=== PATIENT | male | born 1940 | race Caucasian/White ===

== ENCOUNTER → 2016-04-21 | Outpatient (CLI) | payer MEDICARE, BC ==
--- NOTE | 2016-04-22 08:18 | US ---
EXAMINATION TYPE: US abdomen complete DATE OF EXAM: 04/21/2016 6:53 PM COMPARISON: CT in PACS CLINICAL HISTORY: Abdominal pain. Known AAA. Very difficult study due to large amount of overlying casandra wel gas EXAM MEASUREMENTS: Liver Length: 17.9 cm Gallbladder Wall: 0.2 cm CBD: 0.5 cm Spleen: 9.0 cm Right Kidney: 10.9 x 4.8 x 4.5 cm Left Kidney: 10.9 x 5.2 x 5.3 cm TECHNOLOGIST IMPRESSION: Pancreas: Obscured by bowel gas, visualized portions show no mass Liver: Measuring upper limits, no masses visualized Gallbladder: wnl Evidence for sonographic Yun's sign: No CBD: wnl Spleen: wnl Right Kidney: No hydronephrosis or masses seen Left Kidney: No hydronephrosis or masses seen Upper IVC: wnl Abd Aorta: Limited visualization due to large amount of overlying bowel gas. The patient was very ne rvous about me putting any large amount of pressure on his abdomen, which also limited the exam. The prox/mid aorta measures 3.9 cm and the mid aorta measures 5.7 cm. Distal aorta could not be visualize d on this exam IMPRESSION: 1. Infrarenal abdominal aortic aneurysm with maximal transverse diameter of 5.7 cm. 2. Mild hepatomegaly.
== END | disposition home or self-care (01) ==
LOC: RADUSMAIN 17:41
PROVIDERS: ATTEND Family Medicine
DX: I71.4 Abdominal aortic aneurysm, without rupture (principal); R16.0 Hepatomegaly, not elsewhere classified
CPT/HCPCS: 76700

== ENCOUNTER 2017-06-22 12:22 | Inpatient (IN) | payer MEDICARE, BC ==
[2017-06-22] MEDS ORDERED: SODIUM CHLORIDE 0.9% 1,000 ML IV STA (12:45)
[2017-06-22] MEDS ORDERED: ALBUTEROL NEBULIZED 2.5 MG/3 ML INHALATION STA (12:45)
[2017-06-22] MEDS ORDERED: IPRATROPIUM 0.5 MG/2.5 ML NEBU INHALATION STA (12:45)
[2017-06-22] MEDS ORDERED: cefTRIAXone IN SWFI 2,000 MG/20 ML SYRINGE IVP STA (12:45)
[2017-06-22] MEDS ORDERED: methylPREDNISolone SOD SUCCI 125 MG/2 ML VIAL IV STA (12:45)
[2017-06-22 13:25] LABS: ALT 23 U/L (21-72); AST 21 U/L (17-59); Albumin 3.8 g/dL (3.5-5.0); Alkaline Phosphatase 110 U/L (38-126); Anion Gap 12 mmol/L; Blood Urea Nitrogen 14 mg/dL (9-20); Calcium 8.9 mg/dL (8.4-10.2); Carbon Dioxide 26 mmol/L (22-30); Chloride 104 mmol/L (98-107); Glucose 195 mg/dL (74-99); Sodium 142 mmol/L (137-145); Total Bilirubin 0.6 mg/dL (0.2-1.3); Total Protein 6.8 g/dL (6.3-8.2)
[2017-06-22 13:30] LABS: D-Dimer 0.77 mg/L FEU (<0.60); HCT 32.1 % (39.0-53.0); HGB 10.7 gm/dL (13.0-17.5); INR 1.1 (<1.2); MCH 35.4 pg (25.0-35.0); MCHC 33.4 g/dL (31.0-37.0); Macrocytosis Moderate; Partial Thromboplastin Time 24.9 sec (22.0-30.0); Platelet Count 403 k/uL (150-450); Prothrombin Time 10.6 sec (9.0-12.0); RBC 3.03 m/uL (4.30-5.90); RDW 13.6 % (11.5-15.5); WBC 8.7 k/uL (3.8-10.6)
[2017-06-22 13:43] LABS: Eosinophils # (M) 0.44 k/uL (0-0.7); Lymphocytes # (M) 1.22 k/uL (1.0-4.8); Monocytes # (M) 0.61 k/uL (0-1.0); Neutrophils # (M) 6.44 k/uL (1.3-7.7); Neutrophils % (M) 74 %; Nucleated Red Blood Cells 0 /100 WBC (0-0); Total Cells Counted 100
[2017-06-22 13:50] LABS: Creatine Kinase MB 1.7 ng/mL (0.0-2.4)
[2017-06-22 13:51] LABS: Troponin I 0.04 ng/mL (0.000-0.034)
--- NOTE | 2017-06-22 14:28 | XR ---
EXAMINATION TYPE: XR chest 2V DATE OF EXAM: 06/22/2017 COMPARISON: 10/04/2011 HISTORY: Shortness of breath TECHNIQUE: Frontal and lateral views of the chest are obtained. FINDINGS: New right lower lung opacity may represent early developing pneumonia or confluence of eng orged pulmonary vasculature. Short-term follow-up is recommended. Pulmonary per inflation and slight flattening of the diaphragms on the lateral images with biapical lucencies suggestive of underlying C OPD. Incidental note of an azygos lobe and fissure is made. Postoperative changes with dehiscence of the most superior sternal wires, unchanged from the prior, is noted. Cardiac silhouette is within nor mal limits but upper limits of normal. No cephalization of pulmonary vascular congestion. Minimal oss eous demineralization is noted. IMPRESSION: New right lower lobe vague opacity that may represent confluence of engorged pulmonary vasculature or early developing pneumonia. Short-term follow-up is recommended.
[2017-06-22 15:10] LABS: Appearance,Urine Clear (Clear); Bilirubin,Urine Negative (Negative); Blood,Urine Negative (Negative); Color,Urine Yellow; Glucose,Urine (UA) 2+ (Negative); Ketones,Urine 1+ (Negative); Leukocyte Esterase,Urine Negative (Negative); Nitrite,Urine Negative (Negative); PH, Urine 5.5 (5.0-8.0); Protein,Urine Trace (Negative); Specific Gravity,Urine 1.015 (1.001-1.035)
[2017-06-22] MEDS ORDERED: GABAPENTIN 300 MG CAP PO STA (16:05)
[2017-06-22] MEDS ORDERED: oxyCODONE-APAP 7.5-325MG 1 EACH TAB PO STA (16:05)
[2017-06-22] MEDS ORDERED: ALPRAZolam 0.5 MG TAB PO STA (16:06)
[2017-06-22] MEDS ORDERED: RX INFO: IV CONTRAST WAS GIVEN 1 EACH MISC MISCELLANE PRN (16:36)
--- NOTE | 2017-06-22 16:39 | ED ---
SOB HPI - General Chief Complaint: Shortness of Breath Stated Complaint: Bronchitis/Low O2 sent by PCP Time Seen by Provider: 06/22/17 12:36 Source: patient, family Mode of arrival: wheelchair Limitations: no limitations - History of Present Illness Initial Comments: 27 years old gentleman long-standing history of smoking, still smokes presents with a shortness of breath for the last 3 weeks, also complaining about some fever and chills and shakes, he was seen at [facility] according to the patient wanted to admit him but he disagreed with today is complaining about shortness of breath it hurts when he takes a deep breath, he has a history of coronary artery disease he status post CABG denies any abdominal pain no frequency urgency dysuria and eyes any symptoms of TIA or CVA - Related Data Home Medications Medication Instructions Recorded Confirmed ALPRAZolam [Xanax] 1 tab PO Q8H 05/12/15 06/22/17 Atenolol [Tenormin] 25 mg PO BID 05/12/15 06/22/17 Cilostazol [Pletal] 50 mg PO BID 05/12/15 06/22/17 Citalopram Hydrobromide [CeleXA] 20 mg PO BID 05/12/15 06/22/17 Clopidogrel Bisulfate [Plavix] 75 mg PO DAILY 05/12/15 06/22/17 Furosemide [Lasix] 20 mg PO BID 05/12/15 06/22/17 Gabapentin [Neurontin] 600 mg PO TID 05/12/15 06/22/17 Lisinopril [Zestril] 10 mg PO DAILY 05/12/15 06/22/17 Zolpidem [Ambien] 5 mg PO HS 05/12/15 06/22/17 amLODIPine BESYLATE [Norvasc] 5 mg PO BID 05/12/15 06/22/17 Aspirin EC [Ecotrin Low Dose] 81 mg PO DAILY 06/22/17 06/22/17 Doxycycline Hyclate [Vibramycin] 100 mg PO BID 06/22/17 06/22/17 Insulin Glargine,Hum.rec.anlog 15 unit SQ 06/22/17 06/22/17 [Basaglmak Martinezpen U-100] Insulin Glargine,Hum.rec.anlog See Protocol SQ 06/22/17 06/22/17 [Basaglar Kwikpen U-100] Insulin Lispro [humaLOG Kwikpen] See Protocol SQ 5XD 06/22/17 06/22/17 Levothyroxine Sodium [Synthroid] 50 mcg PO Q72H 06/22/17 06/22/17 oxyCODONE-APAP 7.5-325MG [Percocet 1 tab PO TID 06/22/17 06/22/17 7.5-325 mg] Allergies Allergy/AdvReac Type Severity Reaction Status Date / Time No Known Allergies Allergy Verified 06/22/17 12:51 Review of Systems ROS Statement: Those systems with pertinent positive or pertinent negative responses have been documented in the HPI. ROS Other: All systems not noted in ROS Statement are negative. Past Medical History Past Medical History: Diabetes Mellitus, Hypertension, Myocardial Infarction ([place] ) Additional Past Medical History / Comment(s): spinal stenosis, arthritis History of Any Multi-Drug Resistant Organisms: None Reported Past Surgical History: Coronary Bypass/CABG, Heart Catheterization With Stent, Orthopedic Surgery Past Psychological History: Depression Smoking Status: Current every day smoker Past Alcohol Use History: None Reported Past Drug Use History: None Reported General Exam - General Exam Comments Initial Comments: General: The patient is awake and alert, in moderate distress Skin: Skin is warm and dry and no rashes or lesions are noted. Eye: Pupils are equal, round and reactive to light, extra-ocular movements are intact; there is normal conjunctiva bilaterally. Ears, nose, mouth and throat: There are moist mucous membranes and no oral lesions. Neck: The neck is supple, signs of meningitis Cardiovascular: There is a regular rate and rhythm. No murmur, rub or gallop is appreciated. Respiratory: To auscultation bilateral, exam consistent with a severe COPD Gastrointestinal: Soft, non-distended, non-tender abdomen without masses or organomegaly noted. There is no rebound or guarding present. Bowel sounds are unremarkable. Back: There is no tenderness to palpation in the midline. There is no obvious deformity. Musculoskeletal: Normal ROM, no tenderness, There is no pedal edema. There is no calf tenderness or swelling. No cords were appreciated. Neurological: CN II-XII intact, Cranial nerves III through XII are intact. There are no obvious motor or sensory deficits. Coordination appears grossly intact. Speech is normal. Psychiatric: Cooperative, appropriate mood & affect, normal judgment. Limitations: no limitations Course Vital Signs 06/22/17 06/22/17 06/22/17 12:29 12:53 13:03 Temperature 98.3 F Pulse Rate 81 78 78 Respiratory 26 H 20 Rate Blood Pressure 163/71 161/71 O2 Sat by Pulse 88 L 99 Oximetry 06/22/17 06/22/17 06/22/17 13:44 14:47 15:54 Temperature 98.6 F Pulse Rate 96 85 82 Respiratory 20 20 Rate Blood Pressure 132/62 142/63 O2 Sat by Pulse 96 96 Oximetry 06/22/17 17:54 Temperature Pulse Rate 76 Respiratory 20 Rate Blood Pressure 133/63 O2 Sat by Pulse 96 Oximetry Medical Decision Making - Lab Data Result diagrams: 06/22/17 12:58 06/22/17 12:58 Lab Results 06/22/17 06/22/17 06/22/17 Range/Units 12:58 12:58 12:58 WBC 8.7 (3.8-10.6) k/uL RBC 3.03 L (4.30-5.90) m/uL Hgb 10.7 L (13.0-17.5) gm/dL Hct 32.1 L (39.0-53.0) % MCV 106.0 H (80.0-100.0) fL MCH 35.4 H (25.0-35.0) pg MCHC 33.4 (31.0-37.0) g/dL RDW 13.6 (11.5-15.5) % Plt Count 403 (150-450) k/uL Neutrophils % (Manual) 74 % Lymphocytes % (Manual) 14 % Monocytes % (Manual) 7 % Eosinophils % (Manual) 5 % Neutrophils # (Manual) 6.44 (1.3-7.7) k/uL Lymphocytes # (Manual) 1.22 (1.0-4.8) k/uL Monocytes # (Manual) 0.61 (0-1.0) k/uL Eosinophils # (Manual) 0.44 (0-0.7) k/uL Nucleated RBCs 0 (0-0) /100 WBC Manual Slide Review Performed Macrocytosis Moderate PT (9.0-12.0) sec INR (<1.2) APTT (22.0-30.0) sec D-Dimer (<0.60) mg/L FEU Sodium 142 (137-145) mmol/L Potassium 4.0 (3.5-5.1) mmol/L Chloride 104 (98-107) mmol/L Carbon Dioxide 26 (22-30) mmol/L Anion Gap 12 mmol/L BUN 14 (9-20) mg/dL Creatinine 0.70 (0.66-1.25) mg/dL Est GFR (CKD-EPI)AfAm >90 (>60 ml/min/1.73 sqM) Est GFR (CKD-EPI)NonAf >90 (>60 ml/min/1.73 sqM) Glucose 195 H (74-99) mg/dL POC Glucose (mg/dL) (75-99) mg/dL POC Glu Court Commissioner ID Plasma Lactic Acid Chauncey (0.7-2.0) mmol/L Calcium 8.9 (8.4-10.2) mg/dL Total Bilirubin 0.6 (0.2-1.3) mg/dL AST 21 (17-59) U/L ALT 23 (21-72) U/L Alkaline Phosphatase 110 (38-126) U/L Total Creatine Kinase 139 (55-170) U/L CK-MB (CK-2) 1.7 (0.0-2.4) ng/mL CK-MB (CK-2) Rel Index 1.2 Troponin I 0.040 H* (0.000-0.034) ng/mL Total Protein 6.8 (6.3-8.2) g/dL Albumin 3.8 (3.5-5.0) g/dL Urine Color Urine Appearance (Clear) Urine pH (5.0-8.0) Ur Specific [place] (1.001-1.035) Urine Protein (Negative) Urine Glucose (UA) (Negative) Urine Ketones (Negative) Urine Blood (Negative) Urine Nitrite (Negative) Urine Bilirubin (Negative) Urine Urobilinogen (<2.0) mg/dL Ur Leukocyte Esterase (Negative) 06/22/17 06/22/17 06/22/17 Range/Units 12:58 12:58 14:59 WBC (3.8-10.6) k/uL RBC (4.30-5.90) m/uL Hgb (13.0-17.5) gm/dL Hct (39.0-53.0) % MCV (80.0-100.0) fL MCH (25.0-35.0) pg MCHC (31.0-37.0) g/dL RDW (11.5-15.5) % Plt Count (150-450) k/uL Neutrophils % (Manual) % Lymphocytes % (Manual) % Monocytes % (Manual) % Eosinophils % (Manual) % Neutrophils # (Manual) (1.3-7.7) k/uL Lymphocytes # (Manual) (1.0-4.8) k/uL Monocytes # (Manual) (0-1.0) k/uL Eosinophils # (Manual) (0-0.7) k/uL Nucleated RBCs (0-0) /100 WBC Manual Slide Review Macrocytosis PT 10.6 (9.0-12.0) sec INR 1.1 (<1.2) APTT 24.9 (22.0-30.0) sec D-Dimer 0.77 H (<0.60) mg/L FEU Sodium (137-145) mmol/L Potassium (3.5-5.1) mmol/L Chloride (98-107) mmol/L Carbon Dioxide (22-30) mmol/L Anion Gap mmol/L BUN (9-20) mg/dL Creatinine (0.66-1.25) mg/dL Est GFR (CKD-EPI)AfAm (>60 ml/min/1.73 sqM) Est GFR (CKD-EPI)NonAf (>60 ml/min/1.73 sqM) Glucose (74-99) mg/dL POC Glucose (mg/dL) (75-99) mg/dL POC Glu Court Commissioner ID Plasma Lactic Acid Chauncey 1.5 (0.7-2.0) mmol/L Calcium (8.4-10.2) mg/dL Total Bilirubin (0.2-1.3) mg/dL AST (17-59) U/L ALT (21-72) U/L Alkaline Phosphatase (38-126) U/L Total Creatine Kinase (55-170) U/L CK-MB (CK-2) (0.0-2.4) ng/mL CK-MB (CK-2) Rel Index Troponin I (0.000-0.034) ng/mL Total Protein (6.3-8.2) g/dL Albumin (3.5-5.0) g/dL Urine Color Yellow Urine Appearance Clear (Clear) Urine pH 5.5 (5.0-8.0) Ur Specific [place] 1.015 (1.001-1.035) Urine Protein Trace H (Negative) Urine Glucose (UA) 2+ H (Negative) Urine Ketones 1+ H (Negative) Urine Blood Negative (Negative) Urine Nitrite Negative (Negative) Urine Bilirubin Negative (Negative) Urine Urobilinogen 2.0 (<2.0) mg/dL Ur Leukocyte Esterase Negative (Negative) 06/22/17 Range/Units 17:35 WBC (3.8-10.6) k/uL RBC (4.30-5.90) m/uL Hgb (13.0-17.5) gm/dL Hct (39.0-53.0) % MCV (80.0-100.0) fL MCH (25.0-35.0) pg MCHC (31.0-37.0) g/dL RDW (11.5-15.5) % Plt Count (150-450) k/uL Neutrophils % (Manual) % Lymphocytes % (Manual) % Monocytes % (Manual) % Eosinophils % (Manual) % Neutrophils # (Manual) (1.3-7.7) k/uL Lymphocytes # (Manual) (1.0-4.8) k/uL Monocytes # (Manual) (0-1.0) k/uL Eosinophils # (Manual) (0-0.7) k/uL Nucleated RBCs (0-0) /100 WBC Manual Slide Review Macrocytosis PT (9.0-12.0) sec INR (<1.2) APTT (22.0-30.0) sec D-Dimer (<0.60) mg/L FEU Sodium (137-145) mmol/L Potassium (3.5-5.1) mmol/L Chloride (98-107) mmol/L Carbon Dioxide (22-30) mmol/L Anion Gap mmol/L BUN (9-20) mg/dL Creatinine (0.66-1.25) mg/dL Est GFR (CKD-EPI)AfAm (>60 ml/min/1.73 sqM) Est GFR (CKD-EPI)NonAf (>60 ml/min/1.73 sqM) Glucose (74-99) mg/dL POC Glucose (mg/dL) 366 H (75-99) mg/dL POC Glu Court Commissioner ID Christina Moreau Plasma Lactic Acid Chauncey (0.7-2.0) mmol/L Calcium (8.4-10.2) mg/dL Total Bilirubin (0.2-1.3) mg/dL AST (17-59) U/L ALT (21-72) U/L Alkaline Phosphatase (38-126) U/L Total Creatine Kinase (55-170) U/L CK-MB (CK-2) (0.0-2.4) ng/mL CK-MB (CK-2) Rel Index Troponin I (0.000-0.034) ng/mL Total Protein (6.3-8.2) g/dL Albumin (3.5-5.0) g/dL Urine Color Urine Appearance (Clear) Urine pH (5.0-8.0) Ur Specific [place] (1.001-1.035) Urine Protein (Negative) Urine Glucose (UA) (Negative) Urine Ketones (Negative) Urine Blood (Negative) Urine Nitrite (Negative) Urine Bilirubin (Negative) Urine Urobilinogen (<2.0) mg/dL Ur Leukocyte Esterase (Negative) Critical Care Time Total Critical Care Time: 45 Critical Care Time: Patient is S comes in with a severe COPD, he was started and we gave him some IV steroids and inhaled steroids as well EKG showed ST segment depression in V2 V3 V4 V5 and V6 also noticed ST depression in aVF and his troponin is elevated is can be heparinized d-dimer is elevated we'll go ahead and numb evaluate him pulmonary embolus ill for that's positive then was switched to high intensity is on a be admitted with the IV and inhaled steroids heparin aspirin will be seeing 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
[2017-06-22] MEDS ORDERED: MORPHINE ORAL SOLN 10 MG/5 ML CUP PO PRN (16:54)
[2017-06-22] MEDS ORDERED: HEPARIN SODIUM,PORCINE 5,000 UNIT/ML 1 ML VIAL IV ONE (16:54)
[2017-06-22] MEDS ORDERED: NITROGLYCERIN SL TABS 0.4 MG TAB SUBLINGUAL PRN (16:54)
[2017-06-22] MEDS ORDERED: HEPARIN SOD,PORK IN 0.45% NACL 25,000 UNIT in 0.45% NACL 1 500ML.BAG IV SCH (17:00)
[2017-06-22 17:41] LABS: Glucose,Whole Blood 366 mg/dL (75-99)
--- NOTE | 2017-06-22 17:41 | CT ---
EXAMINATION TYPE: CT chest angio for PE DATE OF EXAM: 06/22/2017 COMPARISON: NONE HISTORY: Low O2, weakness, elevated d-dimer CT DLP: 550 mGycm. Automated Exposure Control for Dose Reduction was Utilized. CONTRAST: CTA scan of the thorax is performed with IV Contrast, patient injected with 86 mL of Isovue 370, pulm onary embolism protocol. MIP Images are created on CT scanner and reviewed. FINDINGS: LUNGS: Diffuse groundglass opacities and moderate paraseptal emphysematous changes are seen throughou t the lungs. Left apical pulmonary nodule is 1.4 x 1.7 cm. Evaluation for other subcentimeter pulmona ry nodules is slightly suboptimal given the diffuse groundglass opacities. Mild interlobular septal t hickening is also appreciated. Incidental note of an azygous lobe and azygous fissure. MEDIASTINUM: There are incompletely occlusive peripheral thrombi is centrally located within the left lower lobe segmental and subsegmental pulmonary arteries with distal opacification such as on series 5 image 79, 80, 92. No right-sided pulmonary bullae are noted. Enlarged subcarinal lymph node measur es 1.2 cm in short axis. Right hilar adenopathy is also abnormal measuring 1.2 cm in short axis. Left infrahilar adenopathy measures 1.0 cm in short axis. Post CABG changes are seen of the chest. Minima l retroareolar gynecomastia is noted bilaterally. Partial visualization of an abdominal aortic endogr aft/stent is seen with a aorta measuring 3.0 x 3.0 cm in the upper abdomen. There is patency of the p roximal visualized celiac and SMA with stenosis of the proximal SMA. No cardiomegaly or pericardial e ffusion is seen. OTHER: Fullness of the gastroesophageal junction may represent a small hiatal hernia and there is inc omplete distention right upper pole probable renal cyst is too small to accurately characterize measu ring 6 mm. Few colonic diverticula are incidentally noted. Moderate multilevel degenerative changes o f the thoracic spine are seen. IMPRESSION: 1. Age indeterminant left lower lobe small nonocclusive segmental and subsegmental pulmonary emboli. These are predominantly acentrically located and may be chronic. 2. Left apical pulmonary nodule measuring up to 1.7 cm that could be further evaluated with PET/CT. 3. Multifocal groundglass opacities and interlobular septal thickening could represent fluid overload or multifocal pneumonia. 4. Moderate centrilobular pulmonary emphysema. 5. Fullness at the gastroesophageal junction may represent a hiatal hernia but is suboptimally evalua roxanna due to incomplete distention and lack of oral contrast.
[2017-06-22] MEDS ORDERED: INSULIN ASPART 100 UNIT/ML 1 ML 10 ML VIAL SQ ONE (17:43)
[2017-06-22 20:45] LABS: Creatine Kinase MB 1.4 ng/mL (0.0-2.4); Troponin I 0.028 ng/mL (0.000-0.034)
[2017-06-22] MEDS ORDERED: CILOSTAZOL 50 MG PO SCH (21:00)
[2017-06-22 21:04] LABS: Glucose,Whole Blood 377 mg/dL (75-99)
--- NOTE | 2017-06-22 22:31 | P.HPIM ---
History of Present Illness H&P Date: 06/22/17 Chief Complaint: Shortness of breath Patient is a 77-year-old male with a known history of hypertension, diabetes type 2, coronary artery disease history of coronary artery bypass graft, degenerative joint disease and COPD, not on home oxygen came to ER with complaints of shortness of breath for the past 7 days. Patient was also having subjective fevers and chills and shakes. Patient was seen at [facility] recently and wants to admit him but patient disagreed. Patient has been having worsening shortness of breath and chest pain with deep breathing. Otherwise patient denied any nausea vomiting or abdominal pain. No dysuria or hematuria. Patient is hard of hearing and is also poor historian. Patient's is at bedside. Denied any headache or dizziness or lightheadedness. Pulse ox was 72 % on admission. Patient is also complaining of right foot swelling about one day ago which has resolved now. Patient continues smoke 1 pack per day D-dimer 0.77 Troponin 0.040 Chest x-ray showed new right lower lobe opacity CT angiogram of the chest showed age indeterminate segmental and subsegmental nonocclusive left lower lobe pulmonary emboli Central lobar pulmonary emphysema. Multifocal pneumonia. Hiatal hernia. Review of Systems Constitutional: Subjective fever and chills . Patient denied any weight loss. Patient does have generalized weakness Abdomen: Patient denied nausea vomiting and diarrhea and abdominal pain. Cardiovascular: Patient denies any chest pain or short of breath no palpitations. Respiratory: Patient does have cough congestion and shortness of breath Neurologic: Patient denied any numbness or tingling headache. Musculoskeletal: Patient denies any complaints of joint swelling or deformity. Skin: Negative Psychiatric: Negative Endocrine: No heat or cold intolerance. No recent weight gain. Genitourinary: No dysuria or hematuria. All other 14 point ROS negative except the above Past Medical History Past Medical History: Diabetes Mellitus, Hypertension, Myocardial Infarction ([place] ) Additional Past Medical History / Comment(s): spinal stenosis, arthritis History of Any Multi-Drug Resistant Organisms: None Reported Past Surgical History: Coronary Bypass/CABG, Heart Catheterization With Stent, Orthopedic Surgery Past Psychological History: Depression Smoking Status: Current every day smoker Past Alcohol Use History: None Reported Past Drug Use History: None Reported Medications and Allergies Home Medications Medication Instructions Recorded Confirmed Type ALPRAZolam [Xanax] 1 tab PO Q8H 05/12/15 06/22/17 History Atenolol [Tenormin] 25 mg PO BID 05/12/15 06/22/17 History Cilostazol [Pletal] 50 mg PO BID 05/12/15 06/22/17 History Citalopram Hydrobromide [CeleXA] 20 mg PO BID 05/12/15 06/22/17 History Clopidogrel Bisulfate [Plavix] 75 mg PO DAILY 05/12/15 06/22/17 History Furosemide [Lasix] 20 mg PO BID 05/12/15 06/22/17 History Gabapentin [Neurontin] 600 mg PO TID 05/12/15 06/22/17 History Lisinopril [Zestril] 10 mg PO DAILY 05/12/15 06/22/17 History Zolpidem [Ambien] 5 mg PO HS 05/12/15 06/22/17 History amLODIPine BESYLATE [Norvasc] 5 mg PO BID 05/12/15 06/22/17 History Aspirin EC [Ecotrin Low Dose] 81 mg PO DAILY 06/22/17 06/22/17 History Doxycycline Hyclate [Vibramycin] 100 mg PO BID 06/22/17 06/22/17 History Insulin Glargine,Hum.rec.anlog 15 unit SQ HS 06/22/17 06/22/17 History [Basaglar Kwikpen U-100] Insulin Glargine,Hum.rec.anlog See Protocol SQ HS 06/22/17 06/22/17 History [Basaglar Kwikpen U-100] Insulin Lispro [humaLOG Kwikpen] See Protocol SQ 5XD 06/22/17 06/22/17 History Levothyroxine Sodium [Synthroid] 50 mcg PO Q72H 06/22/17 06/22/17 History oxyCODONE-APAP 7.5-325MG [Percocet 1 tab PO TID 06/22/17 06/22/17 History 7.5-325 mg] Allergies Allergy/AdvReac Type Severity Reaction Status Date / Time No Known Allergies Allergy Verified 06/22/17 12:51 Physical Exam Vitals: Vital Signs Temp Pulse Resp BP Pulse Ox 06/22/17 19:14 99.4 F 73 20 147/67 95 06/22/17 17:54 76 20 133/63 96 06/22/17 15:54 98.6 F 82 20 142/63 96 06/22/17 14:47 85 20 132/62 96 06/22/17 13:44 96 06/22/17 13:03 78 20 161/71 99 06/22/17 12:53 78 06/22/17 12:29 98.3 F 81 26 H 163/71 88 L Intake and Output 06/22/17 06/22/17 06/22/17 06:59 14:59 22:59 Other: Weight 77.111 kg PHYSICAL EXAMINATION: Patient is lying in the bed comfortably, mild distress, awake alert and oriented.. Patient is hard of hearing and has hearing aid HEENT: Normocephalic. Neck is supple. Pupils reactive. Nostrils clear. Oral cavity is moist. Ears reveal no drainage. Neck reveals no JVD, carotid bruits, or thyromegaly. CHEST EXAMINATION: Trachea is central. Symmetrical expansion. Bilateral diffuse rhonchi and crackles and expiratory wheezing. CARDIAC: Normal S1, S2 with no gallops. No murmurs ABDOMEN: Soft. Bowel sounds normal. No organomegaly. No abdominal bruits. Extremities: reveal no edema. No clubbing or cyanosis Neurologically awake, alert, oriented x3 with well-coordinated movements. No focal deficits noted Skin: No rash or skin lesions. Psychiatric: Cooperative. Nonsuicidal Musculoskeletal: No joint swelling or deformity. Normal range of motion. Results CBC & Chem 7: 06/22/17 12:58 06/22/17 12:58 Labs: Abnormal Lab Results - Last 24 Hours (Table) 06/22/17 06/22/17 06/22/17 Range/Units 12:58 12:58 12:58 RBC 3.03 L (4.30-5.90) m/uL Hgb 10.7 L (13.0-17.5) gm/dL Hct 32.1 L (39.0-53.0) % MCV 106.0 H (80.0-100.0) fL MCH 35.4 H (25.0-35.0) pg D-Dimer (<0.60) mg/L FEU Glucose 195 H (74-99) mg/dL POC Glucose (mg/dL) (75-99) mg/dL Troponin I 0.040 H* (0.000-0.034) ng/mL Urine Protein (Negative) Urine Glucose (UA) (Negative) Urine Ketones (Negative) 06/22/17 06/22/17 06/22/17 Range/Units 12:58 14:59 17:35 RBC (4.30-5.90) m/uL Hgb (13.0-17.5) gm/dL Hct (39.0-53.0) % MCV (80.0-100.0) fL MCH (25.0-35.0) pg D-Dimer 0.77 H (<0.60) mg/L FEU Glucose (74-99) mg/dL POC Glucose (mg/dL) 366 H (75-99) mg/dL Troponin I (0.000-0.034) ng/mL Urine Protein Trace H (Negative) Urine Glucose (UA) 2+ H (Negative) Urine Ketones 1+ H (Negative) 06/22/17 Range/Units 21:02 RBC (4.30-5.90) m/uL Hgb (13.0-17.5) gm/dL Hct (39.0-53.0) % MCV (80.0-100.0) fL MCH (25.0-35.0) pg D-Dimer (<0.60) mg/L FEU Glucose (74-99) mg/dL POC Glucose (mg/dL) 377 H (75-99) mg/dL Troponin I (0.000-0.034) ng/mL Urine Protein (Negative) Urine Glucose (UA) (Negative) Urine Ketones (Negative) Microbiology - Last 24 Hours (Table) 06/22/17 14:59 Urine Culture - Preliminary Urine,Clean Catch Thrombosis Risk Factor Assmnt - DVT/VTE Prophylaxis DVT/VTE Prophylaxis: Pharmacologic Prophylaxis ordered Assessment and Plan Assessment: Acute hypoxic respiratory failure on admission Shortness of breath secondary to multifactorial with COPD, pneumonia multifocal and subsegmental pulmonary embolism with undetermined age Acute COPD exacerbation Multifocal pneumonia Troponin leak. Unlikely acute coronary syndrome Nicotine addiction Hypertension Hypothyroidism Diabetes type 2 Coronary artery disease with history of bypass graft Osteoarthritis Spinal stenosis DVT prophylaxis. Patient is already on heparin IV Plan: Patient be continued on antibiotics in the form of ceftriaxone and doxycycline. Continue the breathing treatments and IV steroids. Patient will be started on heparin drip and continue to follow closely. Pulmonary be consulted. Continue with home medications and further recommendations based on the tail course. Prognosis is guarded. Patient has multiple medical problems and complex issues. Time with Patient: Greater than 30
[2017-06-22 22:35] LABS: Glucose,Whole Blood 353 mg/dL (75-99)
[2017-06-22] MEDS: oxyCODONE-APAP 7.5-325MG 1 EACH TAB PO PRN (22:38)
[2017-06-22] MEDS: ZOLPIDEM 5 MG TAB PO PRN (22:38)
[2017-06-22] MEDS: DOXYCYCLINE 50 MG CAP PO SCH (22:40)
[2017-06-22] MEDS: ATENOLOL 25 MG TAB PO SCH (22:40)
[2017-06-22] MEDS: amLODIPine 5 MG TAB PO SCH (22:40)
[2017-06-22] MEDS: GABAPENTIN 300 MG CAP PO SCH (22:40)
[2017-06-22] MEDS: FUROSEMIDE 20 MG TAB PO SCH (22:40)
[2017-06-22] MEDS: CITALOPRAM HYDROBROMIDE 20 MG TAB PO SCH (22:40)
[2017-06-22] MEDS: INSULIN ASPART 100 UNIT/ML 1 ML 10 ML VIAL SQ SCH (22:49)
[2017-06-23 01:02] LABS: Creatine Kinase MB 1.5 ng/mL (0.0-2.4); Troponin I 0.023 ng/mL (0.000-0.034)
[2017-06-23] MEDS: ATORVASTATIN 40 MG TAB PO SCH ×2 (01:17→20:09)
[2017-06-23] MEDS: methylPREDNISolone SOD SUCCI 125 MG/2 ML VIAL IV SCH ×4 (01:17→18:20)
[2017-06-23] MEDS ORDERED: HEPARIN SODIUM,PORCINE 5,000 UNIT/ML 1 ML VIAL IV PRN (02:04)
[2017-06-23 06:07] LABS: Glucose,Whole Blood 306 mg/dL (75-99)
[2017-06-23 06:43] LABS: Anion Gap 11 mmol/L; Blood Urea Nitrogen 18 mg/dL (9-20); Calcium 8.5 mg/dL (8.4-10.2); Carbon Dioxide 25 mmol/L (22-30); Chloride 104 mmol/L (98-107); Cholesterol 156 mg/dL (<200); Glucose 288 mg/dL (74-99); HDL Cholesterol 38 mg/dL (40-60); LDL Cholesterol,Calculated 100 mg/dL (0-99); Potassium 4.4 mmol/L (3.5-5.1); Sodium 140 mmol/L (137-145); Triglycerides 89 mg/dL (<150)
[2017-06-23] MEDS: INSULIN ASPART 100 UNIT/ML 1 ML 10 ML VIAL SQ SCH ×4 (06:59→22:05)
[2017-06-23] MEDS: LEVOTHYROXINE 50 MCG TAB PO SCH (07:00)
[2017-06-23] MEDS ORDERED: INSULIN ASPART 100 UNIT/ML 1 ML 10 ML VIAL SQ ONE (07:15)
[2017-06-23 07:17] LABS: Basophils % (A) 0 %; Eosinophils % (A) 0 %; HCT 30.2 % (39.0-53.0); HGB 9.9 gm/dL (13.0-17.5); Lymphocytes # (A) 0.9 k/uL (1.0-4.8); Lymphocytes % (A) 16 %; MCH 35.4 pg (25.0-35.0); MCHC 32.7 g/dL (31.0-37.0); MCV 108.3 fL (80.0-100.0); Macrocytosis Moderate; Mean Platelet Volume 7.8; Monocytes # (A) 0.4 k/uL (0-1.0); Monocytes % (A) 8 %; Neutrophils # (A) 4.1 k/uL (1.3-7.7); Neutrophils % (A) 72 %; Platelet Count 375 k/uL (150-450); RBC 2.79 m/uL (4.30-5.90); RDW 13.6 % (11.5-15.5); WBC 5.6 k/uL (3.8-10.6)
[2017-06-23] MEDS ORDERED: INSULIN ASPART 100 UNIT/ML 1 ML 10 ML VIAL SQ SCH (07:30)
[2017-06-23 08:04] LABS: Large Platelets Present; Toxic Granulation Present
[2017-06-23] MEDS: amLODIPine 5 MG TAB PO SCH ×2 (08:37→20:09)
[2017-06-23] MEDS: ATENOLOL 25 MG TAB PO SCH ×2 (08:37→20:09)
[2017-06-23] MEDS: CITALOPRAM HYDROBROMIDE 20 MG TAB PO SCH ×2 (08:37→20:09)
[2017-06-23] MEDS: DOXYCYCLINE 50 MG CAP PO SCH ×2 (08:38→20:09)
[2017-06-23] MEDS: CLOPIDOGREL 75 MG TAB PO SCH (08:38)
[2017-06-23] MEDS: FUROSEMIDE 20 MG TAB PO SCH ×2 (08:38→20:09)
[2017-06-23] MEDS: LISINOPRIL 10 MG TAB PO SCH (08:39)
[2017-06-23] MEDS: GABAPENTIN 300 MG CAP PO SCH ×3 (08:39→20:08)
[2017-06-23] MEDS: oxyCODONE-APAP 7.5-325MG 1 EACH TAB PO PRN ×3 (08:44→20:09)
[2017-06-23] MEDS ORDERED: ASPIRIN 325 MG TAB PO SCH (09:00)
[2017-06-23] MEDS: cefTRIAXone IN SWFI 1,000 MG/10 ML SYRINGE IVP SCH (10:35)
--- NOTE | 2017-06-23 11:03 | P.CRDCN ---
History of Present Illness Consult date: 06/23/17 Chief complaint: Shortness of breath History of present illness: This is a pleasant 77-year-old gentleman with a past medical history significant for peripheral arterial disease, COPD, hypertension, and dyslipidemia, who I I follow in the office as an outpatient who unfortunately continues to smoke, presented to the hospital complaining of shortness of breath. He does have a baseline exertional dyspnea but over the last week shortness of breath has gotten worse. Did not have any symptoms of chest pain or chest discomfort. He was experiencing cough productive of colored sputum as well as fever and chills. No bilateral lower extremities edema. No dizziness or lightheadedness. And no syncope. The EKG showed sinus rhythm with ST and T wave abnormalities seems to be diffuse. The cardiac enzymes were checked and came in to be unremarkable. The chest x-ray showed cardiomegaly with possible infiltrate consistent with pneumonia. The computed tomography scan of the chest was performed after abnormal d-dimer and that showed possible chronic PE. The patient currently is on antibiotic for possible pneumonia. He is also on heparin IV for possible PE. On physical examination he does have severe bilateral expiratory wheezing and bilateral rhonchi. No bilateral lower extremities edema. Past Medical History Past Medical History: Diabetes Mellitus, Hypertension, Myocardial Infarction ([place] ) Additional Past Medical History / Comment(s): spinal stenosis, arthritis Last Myocardial Infarction Date:: unknown History of Any Multi-Drug Resistant Organisms: None Reported Past Surgical History: Coronary Bypass/CABG, Heart Catheterization With Stent, Orthopedic Surgery Additional Past Surgical History / Comment(s): pt. states he has stents in his legs and an aneurysm repair Past Anesthesia/Blood Transfusion Reactions: No Reported Reaction Date of Last Stent Placement:: unknown Past Psychological History: Depression Smoking Status: Current every day smoker Past Alcohol Use History: None Reported Past Drug Use History: None Reported Medications and Allergies Home Medications Medication Instructions Recorded Confirmed Type ALPRAZolam [Xanax] 1 tab PO Q8H 05/12/15 06/22/17 History Atenolol [Tenormin] 25 mg PO BID 05/12/15 06/22/17 History Cilostazol [Pletal] 50 mg PO BID 05/12/15 06/22/17 History Citalopram Hydrobromide [CeleXA] 20 mg PO BID 05/12/15 06/22/17 History Clopidogrel Bisulfate [Plavix] 75 mg PO DAILY 05/12/15 06/22/17 History Furosemide [Lasix] 20 mg PO BID 05/12/15 06/22/17 History Gabapentin [Neurontin] 600 mg PO TID 05/12/15 06/22/17 History Lisinopril [Zestril] 10 mg PO DAILY 05/12/15 06/22/17 History Zolpidem [Ambien] 5 mg PO HS 05/12/15 06/22/17 History amLODIPine BESYLATE [Norvasc] 5 mg PO BID 05/12/15 06/22/17 History Aspirin EC [Ecotrin Low Dose] 81 mg PO DAILY 06/22/17 06/22/17 History Doxycycline Hyclate [Vibramycin] 100 mg PO BID 06/22/17 06/22/17 History Insulin Glargine,Hum.rec.anlog 15 unit SQ HS 06/22/17 06/22/17 History [Basaglar Kwikpen U-100] Insulin Glargine,Hum.rec.anlog See Protocol SQ HS 06/22/17 06/22/17 History [Basaglar Kwikpen U-100] Insulin Lispro [humaLOG Kwikpen] See Protocol SQ 5XD 06/22/17 06/22/17 History Levothyroxine Sodium [Synthroid] 50 mcg PO Q72H 06/22/17 06/22/17 History oxyCODONE-APAP 7.5-325MG [Percocet 1 tab PO TID 06/22/17 06/22/17 History 7.5-325 mg] Allergies Allergy/AdvReac Type Severity Reaction Status Date / Time No Known Allergies Allergy Verified 06/22/17 12:51 Physical Exam Vitals: Vital Signs Temp Pulse Pulse Resp BP BP Pulse Ox 06/23/17 08:00 98.0 F 73 20 183/78 98 06/23/17 04:10 98.2 F 65 21 135/68 94 L 06/23/17 00:25 98.8 F 62 19 135/60 98 06/23/17 00:10 62 19 06/22/17 20:30 98.8 F 69 20 133/63 93 L 06/22/17 19:14 99.4 F 73 20 147/67 95 06/22/17 17:54 76 20 133/63 96 06/22/17 15:54 98.6 F 82 20 142/63 96 06/22/17 14:47 85 20 132/62 96 06/22/17 13:44 96 06/22/17 13:03 78 20 161/71 99 06/22/17 12:53 78 06/22/17 12:29 98.3 F 81 26 H 163/71 88 L Intake and Output 06/22/17 06/23/17 06/23/17 22:59 06:59 14:59 Intake Total 149.233 240 Output Total 550 Balance -550 149.233 240 Intake: Intake, IV Titration 149.233 Amount Heparin Sod,Pork in 0.45% 149.233 NaCl 25,000 unit In 0.45 % NaCl 1 500ml.bag @ 12 UNITS/KG/HR 18.5 mls/hr IV .Q24H [facility] Rx#: [id number] Oral 240 Output: Urine 550 Other: Voiding Method Toilet Toilet Urinal # Voids 1 1 # Bowel Movements 1 Weight 77.111 kg 81.5 kg - Constitutional General appearance: mild distress - Respiratory Respiratory: bilateral: wheezing - Cardiovascular Rhythm: regular Heart sounds: normal: S1, S2 Results 06/23/17 05:40 06/23/17 05:40 Cardiac Enzymes 06/22/17 06/22/17 06/22/17 Range/Units 12:58 12:58 20:01 AST 21 (17-59) U/L CK-MB (CK-2) 1.7 1.4 (0.0-2.4) ng/mL Troponin I 0.040 H* 0.028 (0.000-0.034) ng/mL 06/23/17 Range/Units 00:13 AST (17-59) U/L CK-MB (CK-2) 1.5 (0.0-2.4) ng/mL Troponin I 0.023 (0.000-0.034) ng/mL Coagulation 06/22/17 06/23/17 06/23/17 Range/Units 12:58 01:18 05:40 PT 10.6 (9.0-12.0) sec APTT 24.9 33.4 H 65.5 H (22.0-30.0) sec Lipids 06/23/17 Range/Units 05:40 Triglycerides 89 (<150) mg/dL Cholesterol 156 (<200) mg/dL HDL Cholesterol 38 L (40-60) mg/dL CBC 06/22/17 06/23/17 Range/Units 12:58 05:40 WBC 8.7 5.6 (3.8-10.6) k/uL RBC 3.03 L 2.79 L (4.30-5.90) m/uL Hgb 10.7 L 9.9 L (13.0-17.5) gm/dL Hct 32.1 L 30.2 L (39.0-53.0) % Plt Count 403 375 (150-450) k/uL Comprehensive Metabolic Panel 06/22/17 06/23/17 Range/Units 12:58 05:40 Sodium 142 140 (137-145) mmol/L Potassium 4.0 4.4 (3.5-5.1) mmol/L Chloride 104 104 (98-107) mmol/L Carbon Dioxide 26 25 (22-30) mmol/L BUN 14 18 (9-20) mg/dL Creatinine 0.70 0.70 (0.66-1.25) mg/dL Glucose 195 H 288 H (74-99) mg/dL Calcium 8.9 8.5 (8.4-10.2) mg/dL AST 21 (17-59) U/L ALT 23 (21-72) U/L Alkaline Phosphatase 110 (38-126) U/L Total Protein 6.8 (6.3-8.2) g/dL Albumin 3.8 (3.5-5.0) g/dL Current Medications Generic Name Dose Route Start Last Admin Trade Name Freq PRN Reason Stop Dose Admin Alprazolam 0.5 mg 06/22/17 17:00 Xanax PO Q8H PRN Anxiety Amlodipine Besylate 5 mg 06/22/17 21:00 06/23/17 08:37 Norvasc PO 5 mg BID JULIANNA Administration Aspirin 325 mg 06/23/17 09:00 06/23/17 08:37 Aspirin PO 325 mg DAILY JULIANNA Administration Atenolol 25 mg 06/22/17 21:00 06/23/17 08:37 Tenormin PO 25 mg BID JULIANNA Administration Atorvastatin Calcium 40 mg 06/22/17 21:00 06/23/17 01:17 Lipitor PO 40 mg HS JULIANNA Administration Ceftriaxone Sodium 1,000 mg 06/23/17 09:00 06/23/17 10:35 Rocephin IVP 1,000 mg Q24HR JULIANNA Administration Citalopram Hydrobromide 20 mg 06/22/17 21:00 06/23/17 08:37 Celexa PO 20 mg BID JULIANNA Administration Clopidogrel Bisulfate 75 mg 06/23/17 09:00 06/23/17 08:38 Plavix PO 75 mg DAILY JULIANNA Administration Doxycycline Monohydrate 100 mg 06/22/17 21:00 06/23/17 08:38 Vibramycin PO 100 mg BID JULIANNA Administration Furosemide 20 mg 06/22/17 21:00 06/23/17 08:38 Lasix PO 20 mg BID JULIANNA Administration Gabapentin 600 mg 06/22/17 22:00 06/23/17 08:39 Neurontin PO 600 mg TID JULIANNA Administration Heparin Sodium (Porcine) 0 unit 06/23/17 02:04 06/23/17 02:14 Heparin IV 3,800 unit PER PROTOCOL PRN Administration Low PTT Protocol Heparin Sodium/Sodium Chloride 500 mls @ 18.5 mls/hr 06/22/17 17:00 06/23/17 02:02 25,000 unit/ Sodium Chloride IV 15 units/kg/hr .Q24H [facility] 23.13 mls/hr Protocol Titration 12 UNITS/KG/HR Insulin Aspart 0 unit 06/22/17 22:37 06/23/17 06:59 Novolog SQ Not Given ACHS [facility] Protocol Levothyroxine Sodium 50 mcg 06/23/17 06:30 06/23/17 07:00 Synthroid PO 50 mcg Q72H [facility] Administration Lisinopril 10 mg 06/23/17 09:00 06/23/17 08:39 Zestril PO 10 mg DAILY JULIANNA Administration Methylprednisolone Sodium Succinate 60 mg 06/23/17 00:00 06/23/17 07:00 Solu-Medrol IV 60 mg Q6HR JULIANNA Administration Miscellaneous Information 1 each 06/22/17 16:36 Rx Info: Iv Contrast Was Given MISCELLANE 06/24/17 16:37 DAILY PRN Per Protocol Morphine Sulfate 12 mg 06/22/17 16:54 Morphine Oral Madelyn 2mg/Ml PO Q5M PRN Chest Pain Nitroglycerin 0.4 mg 06/22/17 16:54 Nitrostat SUBLINGUAL Q5M PRN Chest Pain Oxycodone/Acetaminophen 1 each 06/22/17 22:00 06/23/17 08:44 Percocet 7.5-325 PO 1 each TID PRN Administration Pain - Moderate Zolpidem Tartrate 5 mg 06/22/17 21:00 06/22/17 22:38 Ambien PO 5 mg HS PRN Administration Insomnia Intake and Output 06/22/17 06/23/17 06/23/17 22:59 06:59 14:59 Intake Total 149.233 240 Output Total 550 Balance -550 149.233 240 Intake: Intake, IV Titration 149.233 Amount Heparin Sod,Pork in 0.45% 149.233 NaCl 25,000 unit In 0.45 % NaCl 1 500ml.bag @ 12 UNITS/KG/HR 18.5 mls/hr IV .Q24H [facility] Rx#: [id number] Oral 240 Output: Urine 550 Other: Voiding Method Toilet Toilet Urinal # Voids 1 1 # Bowel Movements 1 Weight 77.111 kg 81.5 kg 06/23/17 05:40 06/23/17 05:40 Assessment and Plan Assessment: Assessment #1 acute on chronic respiratory failure #2 pneumonia #3 significant history of smoking #4 peripheral arterial disease #5 hypertension #6 dyslipidemia Plan #1 the patient symptoms consistent with pneumonia and currently is on antibiotic. #2 I don't feel that the patient is in congestive heart failure at this point #3 we will obtain an ech with Doppler #4 continue following up with him. Also will obtain a copy of the medical records from the office. Thank you for allowing us participate in his care
[2017-06-23 11:48] LABS: Glucose,Whole Blood 250 mg/dL (75-99)
--- NOTE | 2017-06-23 15:11 | P.CNPUL ---
History of Present Illness Consult date: 06/23/17 Reason for consult: dyspnea, cough, chest pain, COPD Chief complaint: Shortness of breath cough and wheezing History of present illness: 77-year-old male with extensive history of smoking and nicotine use his significant cardiovascular disease presented emergency department with progressive increased shortness of breath and cough and wheezing is started about a week to 10 days ago prior to that patient was presented at [facility] was advised admission where he is Due to worsening problem patient presented yesterday was found to have saturation of only 72%, workup and evaluation revealed right lower lobe infiltrate on chest x-ray as well as the left lower lobe pulmonary embolism on CT [place] which is nonocclusive, in addition to that patient has left apical nodule which is 1.4 x 1.7 cm in size has somewhat groundglass attenuation, extensive emphysema and COPD-like changes were noted as well as Review of Systems All systems: negative Past Medical History Past Medical History: Diabetes Mellitus, Hypertension, Myocardial Infarction ([place] ) Additional Past Medical History / Comment(s): spinal stenosis, arthritis Last Myocardial Infarction Date:: unknown History of Any Multi-Drug Resistant Organisms: None Reported Past Surgical History: Coronary Bypass/CABG, Heart Catheterization With Stent, Orthopedic Surgery Additional Past Surgical History / Comment(s): pt. states he has stents in his legs and an aneurysm repair Past Anesthesia/Blood Transfusion Reactions: No Reported Reaction Date of Last Stent Placement:: unknown Past Psychological History: Depression Smoking Status: Current every day smoker Past Alcohol Use History: None Reported Past Drug Use History: None Reported Medications and Allergies Home Medications Medication Instructions Recorded Confirmed Type ALPRAZolam [Xanax] 1 tab PO Q8H 05/12/15 06/22/17 History Atenolol [Tenormin] 25 mg PO BID 05/12/15 06/22/17 History Cilostazol [Pletal] 50 mg PO BID 05/12/15 06/22/17 History Citalopram Hydrobromide [CeleXA] 20 mg PO BID 05/12/15 06/22/17 History Clopidogrel Bisulfate [Plavix] 75 mg PO DAILY 05/12/15 06/22/17 History Furosemide [Lasix] 20 mg PO BID 05/12/15 06/22/17 History Gabapentin [Neurontin] 600 mg PO TID 05/12/15 06/22/17 History Lisinopril [Zestril] 10 mg PO DAILY 05/12/15 06/22/17 History Zolpidem [Ambien] 5 mg PO HS 05/12/15 06/22/17 History amLODIPine BESYLATE [Norvasc] 5 mg PO BID 05/12/15 06/22/17 History Aspirin EC [Ecotrin Low Dose] 81 mg PO DAILY 06/22/17 06/22/17 History Doxycycline Hyclate [Vibramycin] 100 mg PO BID 06/22/17 06/22/17 History Insulin Glargine,Hum.rec.anlog 15 unit SQ HS 06/22/17 06/22/17 History [Basaglar Kwikpen U-100] Insulin Glargine,Hum.rec.anlog See Protocol SQ HS 06/22/17 06/22/17 History [Basaglar Kwikpen U-100] Insulin Lispro [humaLOG Kwikpen] See Protocol SQ 5XD 06/22/17 06/22/17 History Levothyroxine Sodium [Synthroid] 50 mcg PO Q72H 06/22/17 06/22/17 History oxyCODONE-APAP 7.5-325MG [Percocet 1 tab PO TID 06/22/17 06/22/17 History 7.5-325 mg] Allergies Allergy/AdvReac Type Severity Reaction Status Date / Time No Known Allergies Allergy Verified 06/22/17 12:51 Physical Exam Vitals: Vital Signs Temp Pulse Pulse Resp BP BP Pulse Ox 06/23/17 12:00 97.8 F 78 20 152/74 96 06/23/17 08:00 98.0 F 73 20 183/78 98 06/23/17 04:10 98.2 F 65 21 135/68 94 L 06/23/17 00:25 98.8 F 62 19 135/60 98 06/23/17 00:10 62 19 06/22/17 20:30 98.8 F 69 20 133/63 93 L 06/22/17 19:14 99.4 F 73 20 147/67 95 06/22/17 17:54 76 20 133/63 96 06/22/17 15:54 98.6 F 82 20 142/63 96 Intake and Output 04/04/18 04/04/18 04/04/18 06:59 14:59 22:59 Intake Total 149.233 240 Output Total 450 Balance 149.233 -210 Intake: Intake, IV Titration 149.233 Amount Heparin Sod,Pork in 0.45% 149.233 NaCl 25,000 unit In 0.45 % NaCl 1 500ml.bag @ 12 UNITS/KG/HR 18.5 mls/hr IV .Q24H [facility] Rx#: [id number] Oral 240 Output: Urine 450 Other: Voiding Method Toilet Urinal # Voids 1 # Bowel Movements 1 Weight 81.5 kg 81.5 kg Patient is lying in the bed comfortably, mild distress, awake alert and oriented.. Patient is hard of hearing and has hearing aid HEENT: Normocephalic. Neck is supple. Pupils reactive. Nostrils clear. Oral cavity is moist. Ears reveal no drainage. Neck reveals no JVD, carotid bruits, or thyromegaly. CHEST/LUNGS EXAMINATION: Trachea is central. Symmetrical expansion. Bilateral diffuse rhonchi and crackles and expiratory wheezing. CARDIAC: Normal S1, S2 with no gallops. No murmurs ABDOMEN: Soft. Bowel sounds normal. No organomegaly. No abdominal bruits. Extremities: reveal no edema. No clubbing or cyanosis Neurologically awake, alert, oriented x3 with well-coordinated movements. No focal deficits noted Skin: No rash or skin lesions. Psychiatric: Cooperative. Nonsuicidal Musculoskeletal: No joint swelling or deformity. Normal range of motion. Results - Laboratory Findings CBC and BMP: 06/23/17 05:40 06/23/17 05:40 PT/INR, D-dimer PT 10.6 sec (9.0-12.0) 06/22/17 12:58 INR 1.1 (<1.2) 06/22/17 12:58 D-Dimer 0.77 mg/L FEU (<0.60) H 06/22/17 12:58 Abnormal lab findings: Abnormal Labs 06/22/17 06/22/17 06/22/17 12:58 12:58 12:58 RBC 3.03 L Hgb 10.7 L Hct 32.1 L MCV 106.0 H MCH 35.4 H Lymphocytes # APTT D-Dimer Glucose 195 H POC Glucose (mg/dL) Troponin I 0.040 H* LDL Cholesterol, Calc HDL Cholesterol Urine Protein Urine Glucose (UA) Urine Ketones 06/22/17 06/22/17 06/22/17 12:58 14:59 17:35 RBC Hgb Hct MCV MCH Lymphocytes # APTT D-Dimer 0.77 H Glucose POC Glucose (mg/dL) 366 H Troponin I LDL Cholesterol, Calc HDL Cholesterol Urine Protein Trace H Urine Glucose (UA) 2+ H Urine Ketones 1+ H 06/22/17 06/22/17 06/23/17 21:02 22:32 01:18 RBC Hgb Hct MCV MCH Lymphocytes # APTT 33.4 H D-Dimer Glucose POC Glucose (mg/dL) 377 H 353 H Troponin I LDL Cholesterol, Calc HDL Cholesterol Urine Protein Urine Glucose (UA) Urine Ketones 06/23/17 06/23/17 06/23/17 05:40 05:40 05:40 RBC 2.79 L Hgb 9.9 L Hct 30.2 L MCV 108.3 H MCH 35.4 H Lymphocytes # 0.9 L APTT 65.5 H D-Dimer Glucose 288 H POC Glucose (mg/dL) Troponin I LDL Cholesterol, Calc 100 H HDL Cholesterol 38 L Urine Protein Urine Glucose (UA) Urine Ketones 06/23/17 06/23/17 06:05 11:43 RBC Hgb Hct MCV MCH Lymphocytes # APTT D-Dimer Glucose POC Glucose (mg/dL) 306 H 250 H Troponin I LDL Cholesterol, Calc HDL Cholesterol Urine Protein Urine Glucose (UA) Urine Ketones - Diagnostic Findings Chest x-ray: report reviewed, image reviewed CT scan - chest: report reviewed, image reviewed (Findings as noted above) Assessment and Plan Assessment: Right lower lobe pneumonia Acute COPD exacerbation Left upper lobe 1.7 cm lung nodule Acute hypoxic restrictive failure related to above Baseline severe COPD emphysema Hypertension hypertensive cardiovascular disease Diffuse coronary artery disease Peripheral arterial disease Dyslipidemia Extensive history of smoking and nicotine use Plan: IV gentle rehydration Broad-spectrum antibiotics Breathing treatments with B2 agonist and inhaled steroid IV steroids IV anticoagulation with heparin drip subsequently can be switched to Xarelto or Eliquis if insurance covers otherwise coumadin Follow-up on sputum culture results and report Optimize cardiac therapy Further recommendations pending plan of care as per clinical response of the patient Time with Patient: Greater than 30
[2017-06-23] MEDS: IPRATROPIUM-ALBUTEROL 3 ML NEB INHALATION SCH ×2 (15:22→21:03)
[2017-06-23] MEDS: NICOTINE 21MG/24HR PATCH TRANSDERM SCH (16:10)
[2017-06-23 16:42] LABS: Glucose,Whole Blood 262 mg/dL (75-99)
[2017-06-23] MEDS: ALPRAZolam 0.5 MG TAB PO PRN (20:09)
[2017-06-23] MEDS: ZOLPIDEM 5 MG TAB PO PRN (20:09)
[2017-06-23] MEDS ORDERED: HEPARIN SODIUM,PORCINE 5,000 UNIT/ML 1 ML VIAL IV STA (20:33)
[2017-06-23] MEDS ORDERED: HEPARIN SODIUM,PORCINE 10,000 UNIT/ML 1 ML VIAL IV ONE (20:34)
[2017-06-23] MEDS: BUDESONIDE 0.5 MG/2 ML NEBU INHALATION SCH (21:03)
[2017-06-23 21:13] LABS: Glucose,Whole Blood 295 mg/dL (75-99)
[2017-06-23] MEDS: HEPARIN SOD,PORK IN 0.45% NACL 25,000 UNIT in 0.45% NACL 1 500ML.BAG IV SCH (22:05)
[2017-06-23] MEDS: WARFARIN 5 MG TAB PO SCH ×2 (22:06→22:18)
--- NOTE | 2017-06-24 00:39 | P.PN ---
Subjective Progress Note Date: 06/23/17 Principal diagnosis: Shortness of breath which is multifactorial due to pneumonia and COPD exacerbation Patient is a 77-year-old male with a known history of hypertension, diabetes type 2, coronary artery disease history of coronary artery bypass graft, degenerative joint disease and COPD, not on home oxygen came to ER with complaints of shortness of breath for the past 7 days. Patient was also having subjective fevers and chills and shakes. Patient was seen at [facility] recently and wants to admit him but patient disagreed. Patient has been having worsening shortness of breath and chest pain with deep breathing. Otherwise patient denied any nausea vomiting or abdominal pain. No dysuria or hematuria. Patient is hard of hearing and is also poor historian. Patient's is at bedside. Denied any headache or dizziness or lightheadedness. Pulse ox was 72 % on admission. Patient is also complaining of right foot swelling about one day ago which has resolved now. Patient continues smoke 1 pack per day D-dimer 0.77 Troponin 0.040 Chest x-ray showed new right lower lobe opacity CT angiogram of the chest showed age indeterminate segmental and subsegmental nonocclusive left lower lobe pulmonary emboli Central lobar pulmonary emphysema. Multifocal pneumonia. Hiatal hernia. 06/23/2017 Patient says that his breathing is better otherwise still having shortness of breath. No complaints of chest pain. 2-D echo cardiac exam was ordered. Patient was started on anticoagulation with heparin drip and Coumadin was initiated. Cardiology and pulmonary is following. Congestive and antibiotics and IV steroids and breathing treatments. Patient is a poor historian. Complete review of systems could not be obtained from the patient. Active Medications Generic Name Dose Route Start Last Admin Trade Name Freq PRN Reason Stop Dose Admin Albuterol/Ipratropium 3 ml 06/23/17 16:00 06/23/17 21:03 Duoneb 0.5 Mg-3 Mg/3 Ml Soln INHALATION 3 ml RT-QID JULIANNA Administration Alprazolam 0.5 mg 06/22/17 17:00 06/23/17 20:09 Xanax PO 0.5 mg Q8H PRN Administration Anxiety Amlodipine Besylate 5 mg 06/22/17 21:00 06/23/17 20:09 Norvasc PO 5 mg BID JULIANNA Administration Atenolol 25 mg 06/22/17 21:00 06/23/17 20:09 Tenormin PO 25 mg BID JULIANNA Administration Atorvastatin Calcium 40 mg 06/22/17 21:00 06/23/17 20:09 Lipitor PO 40 mg HS JULIANNA Administration Budesonide 0.5 mg 06/23/17 20:00 06/23/17 21:03 Pulmicort INHALATION 0.5 mg RT-BID JULIANNA Administration Ceftriaxone Sodium 1,000 mg 06/23/17 09:00 06/23/17 10:35 Rocephin IVP 1,000 mg Q24HR JULIANNA Administration Citalopram Hydrobromide 20 mg 06/22/17 21:00 06/23/17 20:09 Celexa PO 20 mg BID JULIANNA Administration Clopidogrel Bisulfate 75 mg 06/23/17 09:00 06/23/17 08:38 Plavix PO 75 mg DAILY JULIANNA Administration Doxycycline Monohydrate 100 mg 06/22/17 21:00 06/23/17 20:09 Vibramycin PO 100 mg BID JULIANNA Administration Furosemide 20 mg 06/22/17 21:00 06/23/17 20:09 Lasix PO 20 mg BID JULIANNA Administration Gabapentin 600 mg 06/22/17 22:00 06/23/17 20:08 Neurontin PO 600 mg TID JULIANNA Administration Heparin Sodium/Sodium Chloride 500 mls @ 29.34 mls/hr 06/23/17 20:45 22:05 25,000 unit/ Sodium Chloride IV 18 units/kg/hr .Q17H3M JULIANNA 29.34 mls/hr Protocol Administration 18 UNITS/KG/HR Insulin Aspart 0 unit 06/22/17 22:37 06/23/17 22:05 Novolog SQ 15 unit ACHS JULIANNA Administration Protocol Levothyroxine Sodium 50 mcg 06/23/17 06:30 06/23/17 07:00 Synthroid PO 50 mcg Q72H JULIANNA Administration Lisinopril 10 mg 06/23/17 09:00 06/23/17 08:39 Zestril PO 10 mg DAILY JULIANNA Administration Methylprednisolone Sodium Succinate 60 mg 06/23/17 00:00 06/23/17 18:20 Solu-Medrol IV 60 mg Q6HR JULIANNA Administration Miscellaneous Information 1 each 06/22/17 16:36 Rx Info: Iv Contrast Was Given MISCELLANE 06/24/17 16:37 DAILY PRN Per Protocol Morphine Sulfate 12 mg 06/22/17 16:54 Morphine Oral Madelyn 2mg/Ml PO Q5M PRN Chest Pain Nicotine 1 patch 06/23/17 14:45 06/23/17 16:10 Habitrol 21mg/24hr Patch TRANSDERM 1 patch DAILY JULIANNA Administration Nitroglycerin 0.4 mg 06/22/17 16:54 Nitrostat SUBLINGUAL Q5M PRN Chest Pain Oxycodone/Acetaminophen 1 each 06/22/17 22:00 06/23/17 20:09 Percocet 7.5-325 PO 1 each TID PRN Administration Pain - Moderate Warfarin Sodium 5 mg 06/23/17 20:45 06/23/17 22:18 Coumadin PO Not Given DAILY@1800 [facility] Zolpidem Tartrate 5 mg 06/22/17 21:00 06/23/17 20:09 Ambien PO 5 mg HS PRN Administration Insomnia Objective - Vital Signs Vital signs: Vital Signs Temp 97.0 F L 06/23/17 16:00 Pulse 72 06/23/17 21:30 Resp 20 06/23/17 16:00 BP 156/81 06/23/17 16:00 Pulse Ox 98 06/23/17 21:03 Intake & Output 06/23/17 06/23/17 06/24/17 06:59 18:59 06:59 Intake Total 149.233 480 Output Total 550 450 Balance -400.767 30 Weight 81.5 kg 81.5 kg Intake: Intake, IV Titration 149.233 Amount Heparin Sod,Pork in 0.45% 149.233 NaCl 25,000 unit In 0.45 % NaCl 1 500ml.bag @ 12 UNITS/KG/HR 18.5 mls/hr IV .Q24H [facility] Rx#: [id number] Oral 480 Output: Urine 550 450 Other: Voiding Method Toilet Urinal # Voids 1 # Bowel Movements 1 - Exam Patient is lying in the bed comfortably, mild distress, awake alert and oriented.. Patient is hard of hearing and has hearing aid HEENT: Normocephalic. Neck is supple. Pupils reactive. Nostrils clear. Oral cavity is moist. Ears reveal no drainage. Neck reveals no JVD, carotid bruits, or thyromegaly. CHEST EXAMINATION: Trachea is central. Symmetrical expansion. Bilateral diffuse rhonchi and expiratory wheezing. CARDIAC: Normal S1, S2 with no gallops. No murmurs ABDOMEN: Soft. Bowel sounds normal. No organomegaly. No abdominal bruits. Extremities: reveal no edema. No clubbing or cyanosis Neurologically awake, alert, oriented x3 with well-coordinated movements. No focal deficits noted Skin: No rash or skin lesions. Psychiatric: Cooperative. Nonsuicidal Musculoskeletal: No joint swelling or deformity. Normal range of motion. - Labs CBC & Chem 7: 06/23/17 05:40 06/23/17 05:40 Labs: Abnormal Lab Results - Last 24 Hours (Table) 06/22/17 06/23/17 06/23/17 Range/Units 22:32 01:18 05:40 RBC (4.30-5.90) m/uL Hgb (13.0-17.5) gm/dL Hct (39.0-53.0) % MCV (80.0-100.0) fL MCH (25.0-35.0) pg Lymphocytes # (1.0-4.8) k/uL APTT 33.4 H (22.0-30.0) sec Glucose 288 H (74-99) mg/dL POC Glucose (mg/dL) 353 H (75-99) mg/dL LDL Cholesterol, Calc 100 H (0-99) mg/dL HDL Cholesterol 38 L (40-60) mg/dL 06/23/17 06/23/17 06/23/17 Range/Units 05:40 05:40 06:05 RBC 2.79 L (4.30-5.90) m/uL Hgb 9.9 L (13.0-17.5) gm/dL Hct 30.2 L (39.0-53.0) % MCV 108.3 H (80.0-100.0) fL MCH 35.4 H (25.0-35.0) pg Lymphocytes # 0.9 L (1.0-4.8) k/uL APTT 65.5 H (22.0-30.0) sec Glucose (74-99) mg/dL POC Glucose (mg/dL) 306 H (75-99) mg/dL LDL Cholesterol, Calc (0-99) mg/dL HDL Cholesterol (40-60) mg/dL 06/23/17 06/23/17 06/23/17 Range/Units 11:43 16:40 21:11 RBC (4.30-5.90) m/uL Hgb (13.0-17.5) gm/dL Hct (39.0-53.0) % MCV (80.0-100.0) fL MCH (25.0-35.0) pg Lymphocytes # (1.0-4.8) k/uL APTT (22.0-30.0) sec Glucose (74-99) mg/dL POC Glucose (mg/dL) 250 H 262 H 295 H (75-99) mg/dL LDL Cholesterol, Calc (0-99) mg/dL HDL Cholesterol (40-60) mg/dL Microbiology - Last 24 Hours (Table) 06/22/17 14:59 Urine Culture - Final Urine,Clean Catch 06/22/17 12:58 Blood Culture - Preliminary Blood No Growth after 24 hours Assessment and Plan Assessment: Acute hypoxic respiratory failure on admission Shortness of breath secondary to multifactorial with COPD, pneumonia multifocal and subsegmental pulmonary embolism with undetermined age Subsegmental pulmonary embolism. He is under to mind Acute COPD exacerbation Multifocal pneumonia Troponin leak. Unlikely acute coronary syndrome Nicotine addiction Hypertension Hypothyroidism Diabetes type 2 Coronary artery disease with history of bypass graft Osteoarthritis Spinal stenosis DVT prophylaxis. Patient is already on heparin IV Plan: Patient be continued on antibiotics in the form of ceftriaxone and doxycycline. Continue the breathing treatments and IV steroids. Patient was started on heparin drip and continue to follow closely. Pulmonary is following. Continue with home medications and further recommendations based on the tail course. Prognosis is guarded. Patient has multiple medical problems and complex issues. Time with Patient: Greater than 30
[2017-06-24] MEDS: methylPREDNISolone SOD SUCCI 125 MG/2 ML VIAL IV SCH ×4 (01:02→18:37)
[2017-06-24] MEDS: ALPRAZolam 0.5 MG TAB PO PRN ×3 (04:22→20:18)
[2017-06-24] MEDS: oxyCODONE-APAP 7.5-325MG 1 EACH TAB PO PRN ×3 (04:22→20:18)
[2017-06-24 04:57] LABS: INR 1.2 (<1.2); Partial Thromboplastin Time 57.1 sec (22.0-30.0); Prothrombin Time 11.5 sec (9.0-12.0)
[2017-06-24 06:09] LABS: Glucose,Whole Blood 308 mg/dL (75-99)
[2017-06-24] MEDS: INSULIN ASPART 100 UNIT/ML 1 ML 10 ML VIAL SQ SCH ×4 (06:56→23:26)
[2017-06-24] MEDS: BUDESONIDE 0.5 MG/2 ML NEBU INHALATION SCH ×2 (07:55→20:23)
[2017-06-24] MEDS: IPRATROPIUM-ALBUTEROL 3 ML NEB INHALATION SCH ×4 (07:57→20:23)
[2017-06-24] MEDS: CLOPIDOGREL 75 MG TAB PO SCH (08:13)
[2017-06-24] MEDS: ATENOLOL 25 MG TAB PO SCH ×2 (08:13→20:17)
[2017-06-24] MEDS: CITALOPRAM HYDROBROMIDE 20 MG TAB PO SCH ×2 (08:13→20:18)
[2017-06-24] MEDS: LISINOPRIL 10 MG TAB PO SCH (08:13)
[2017-06-24] MEDS: amLODIPine 5 MG TAB PO SCH ×2 (08:13→20:17)
[2017-06-24] MEDS: cefTRIAXone IN SWFI 1,000 MG/10 ML SYRINGE IVP SCH (08:14)
[2017-06-24] MEDS: FUROSEMIDE 20 MG TAB PO SCH ×2 (08:14→20:18)
[2017-06-24] MEDS: GABAPENTIN 300 MG CAP PO SCH ×3 (08:14→20:18)
[2017-06-24] MEDS: DOXYCYCLINE 50 MG CAP PO SCH ×2 (08:14→20:17)
[2017-06-24] MEDS: NICOTINE 21MG/24HR PATCH TRANSDERM SCH (08:15)
--- NOTE | 2017-06-24 09:20 | P.PN ---
Subjective Progress Note Date: 06/24/17 Principal diagnosis: Shortness of breath This is a pleasant 77-year-old gentleman with a past medical history significant for peripheral arterial disease, COPD, hypertension, and dyslipidemia, who I I follow in the office as an outpatient who unfortunately continues to smoke, presented to the hospital complaining of shortness of breath. He does have a baseline exertional dyspnea but over the last week shortness of breath has gotten worse. Did not have any symptoms of chest pain or chest discomfort. He was experiencing cough productive of colored sputum as well as fever and chills. No bilateral lower extremities edema. No dizziness or lightheadedness. And no syncope. The EKG showed sinus rhythm with ST and T wave abnormalities seems to be diffuse. The cardiac enzymes were checked and came in to be unremarkable. The chest x-ray showed cardiomegaly with possible infiltrate consistent with pneumonia. The computed tomography scan of the chest was performed after abnormal d-dimer and that showed possible chronic PE. On follow-up with the patient today, he is feeling slightly better interim of shortness of breath as well as cough. He still have bilateral expiratory wheezing but it seems to be better today as well. I do not believe that the patient has a PE on the computed tomography scan. For that reason I would stop the heparin and I will stop the Coumadin. Objective - Vital Signs Vital signs: Vital Signs Temp 97.8 F 06/24/17 08:00 Pulse 76 06/24/17 08:12 Resp 18 06/24/17 08:00 BP 173/97 06/24/17 08:00 Pulse Ox 98 06/24/17 08:00 Intake & Output 06/23/17 06/24/17 06/24/17 18:59 06:59 18:59 Intake Total 480 1310 180 Output Total 450 400 Balance 30 910 180 Weight 81.5 kg 80.5 kg Intake: IV 800 0.9 800 Intake, IV Titration 270 Amount Heparin Sod,Pork in 0.45% 270 NaCl 25,000 unit In 0.45 % NaCl 1 500ml.bag @ 18 UNITS/KG/HR 29.34 mls/hr IV .Q17H3M [facility] Rx#: [id number] Oral 480 240 180 Output: Urine 450 400 Other: Voiding Method Toilet Urinal # Voids 1 - Constitutional General appearance: Present: no acute distress - Respiratory Respiratory: bilateral: wheezing - Cardiovascular Rhythm: regular Heart sounds: normal: S1, S2 - Labs CBC & Chem 7: 06/23/17 05:40 06/23/17 05:40 Labs: Abnormal Lab Results - Last 24 Hours (Table) 06/23/17 06/23/17 06/23/17 Range/Units 11:43 16:40 21:11 INR (<1.2) APTT (22.0-30.0) sec POC Glucose (mg/dL) 250 H 262 H 295 H (75-99) mg/dL 06/24/17 06/24/17 Range/Units 04:10 06:07 INR 1.2 H (<1.2) APTT 57.1 H (22.0-30.0) sec POC Glucose (mg/dL) 308 H (75-99) mg/dL Microbiology - Last 24 Hours (Table) 06/22/17 14:59 Urine Culture - Final Urine,Clean Catch 06/22/17 12:58 Blood Culture - Preliminary Blood No Growth after 24 hours Assessment and Plan Assessment: Assessment #1 acute on chronic respiratory failure #2 pneumonia #3 significant history of smoking #4 peripheral arterial disease #5 hypertension #6 dyslipidemia Plan #1 the patient shortness of breath is more related to COPD exacerbation/ pneumonia more than congestive heart failure. #2 continue the oral diuretics #3 DC the heparin. I do not believe that the patient #4 follow-up on the echocardiogram. Thank you for allowing us participate in his care and we'll continue following up with the patient
[2017-06-24 11:46] LABS: Glucose,Whole Blood 290 mg/dL (75-99)
[2017-06-24] MEDS: HEPARIN SOD,PORK IN 0.45% NACL 25,000 UNIT in 0.45% NACL 1 500ML.BAG IV SCH (12:59)
--- NOTE | 2017-06-24 15:35 | P.PN ---
Subjective Progress Note Date: 06/24/17 Principal diagnosis: Acute hypoxic respirator failure related to acute COPD exacerbation, hypertension and hypertensive cardiovascular disease, left upper lobe nodule, chronic pulmonary embolism 06/24/2017, patient seen eval reexamined during the rounds he still short of breath is still of ongoing cough congestion but severity has improved patient remains on broad-spectrum antibiotics breathing treatment and steroids seems to be helping patient is on optimized medical therapy gently being diuresed him a care plan discussed with the son present at bedside, patient is off of heparin drip now on Coumadin 77-year-old male with extensive history of smoking and nicotine use his significant cardiovascular disease presented emergency department with progressive increased shortness of breath and cough and wheezing is started about a week to 10 days ago prior to that patient was presented at [facility] was advised admission where he is Due to worsening problem patient presented yesterday was found to have saturation of only 72%, workup and evaluation revealed right lower lobe infiltrate on chest x-ray as well as the left lower lobe pulmonary embolism on CT [place] which is nonocclusive, in addition to that patient has left apical nodule which is 1.4 x 1.7 cm in size has somewhat groundglass attenuation, extensive emphysema and COPD-like changes were noted as well as Objective - Vital Signs Vital signs: Vital Signs Temp 97.6 F 06/24/17 11:16 Pulse 72 06/24/17 11:26 Resp 18 06/24/17 11:16 BP 158/70 06/24/17 11:16 Pulse Ox 99 06/24/17 11:16 Intake & Output 06/23/17 06/24/17 06/24/17 18:59 06:59 18:59 Intake Total 480 1310 1020 Output Total 450 400 Balance 30 910 1020 Weight 81.5 kg 80.5 kg Intake: IV 800 600 0.9 800 600 Intake, IV Titration 270 Amount Heparin Sod,Pork in 0.45% 270 NaCl 25,000 unit In 0.45 % NaCl 1 500ml.bag @ 18 UNITS/KG/HR 29.34 mls/hr IV .Q17H3M [facility] Rx#: [id number] Oral 480 240 420 Output: Urine 450 400 Other: Voiding Method Toilet Urinal # Voids 1 - Exam Patient is lying in the bed comfortably, mild distress, awake alert and oriented.. Patient is hard of hearing and has hearing aid HEENT: Normocephalic. Neck is supple. Pupils reactive. Nostrils clear. Oral cavity is moist. Ears reveal no drainage. Neck reveals no JVD, carotid bruits, or thyromegaly. CHEST/LUNGS EXAMINATION: Trachea is central. Symmetrical expansion. Bilateral diffuse rhonchi and crackles and expiratory wheezing. CARDIAC: Normal S1, S2 with no gallops. No murmurs ABDOMEN: Soft. Bowel sounds normal. No organomegaly. No abdominal bruits. Extremities: reveal no edema. No clubbing or cyanosis Neurologically awake, alert, oriented x3 with well-coordinated movements. No focal deficits noted Skin: No rash or skin lesions. Psychiatric: Cooperative. Nonsuicidal Musculoskeletal: No joint swelling or deformity. Normal range of motion. - Labs CBC & Chem 7: 06/23/17 05:40 06/23/17 05:40 Labs: Abnormal Lab Results - Last 24 Hours (Table) 06/23/17 06/23/17 06/24/17 Range/Units 16:40 21:11 04:10 INR 1.2 H (<1.2) APTT 57.1 H (22.0-30.0) sec POC Glucose (mg/dL) 262 H 295 H (75-99) mg/dL 06/24/17 06/24/17 Range/Units 06:07 11:44 INR (<1.2) APTT (22.0-30.0) sec POC Glucose (mg/dL) 308 H 290 H (75-99) mg/dL Microbiology - Last 24 Hours (Table) 06/22/17 12:58 Blood Culture - Preliminary Blood No Growth after 48 hours 06/22/17 14:59 Urine Culture - Final Urine,Clean Catch Assessment and Plan Assessment: Right lower lobe pneumonia Acute COPD exacerbation Left upper lobe 1.7 cm lung nodule Acute hypoxic restrictive failure related to above Baseline severe COPD emphysema Hypertension hypertensive cardiovascular disease Left lower lobe subsegmental pulmonary embolism probably old on Coumadin Diffuse coronary artery disease Peripheral arterial disease Dyslipidemia Extensive history of smoking and nicotine use Plan: IV gentle rehydration Broad-spectrum antibiotics Breathing treatments with B2 agonist and inhaled steroid IV steroids On Coumadin now Follow-up on sputum culture results and report Optimize cardiac therapy Further recommendations pending plan of care as per clinical response of the patient PET scan as outpatient and lung biopsy if patient and family is agreeable Time with Patient: Greater than 30
[2017-06-24 16:41] LABS: Glucose,Whole Blood 333 mg/dL (75-99)
[2017-06-24] MEDS: WARFARIN 5 MG TAB PO SCH (17:11)
[2017-06-24] MEDS ORDERED: FUROSEMIDE 10 MG/ML 4 ML VIAL IV STA (17:35)
[2017-06-24] MEDS: ATORVASTATIN 40 MG TAB PO SCH (20:17)
[2017-06-24] MEDS: ZOLPIDEM 5 MG TAB PO PRN (20:18)
[2017-06-24] MEDS ORDERED: INSULIN DETEMIR 100 UNIT/ML 10 ML VIAL SQ SCH (21:00)
[2017-06-24 21:09] LABS: Glucose,Whole Blood 477 mg/dL (75-99)
[2017-06-24] MEDS ORDERED: INSULIN REGULAR BOLUS (FROM DRIP BAG) IV ONE (21:36)
[2017-06-24] MEDS ORDERED: INSULIN REGULAR 100 UNIT in SODIUM CHLORIDE 0.9% 100 ML IV SCH (21:45)
[2017-06-24 22:45] LABS: Glucose,Whole Blood 434 mg/dL (75-99)
[2017-06-24 23:19] LABS: Glucose,Whole Blood 360 mg/dL (75-99)
[2017-06-24 23:47] LABS: Glucose,Whole Blood 413 mg/dL (75-99)
[2017-06-25 00:29] LABS: Glucose,Whole Blood 315 mg/dL (75-99)
--- NOTE | 2017-06-25 00:47 | P.PN ---
Subjective Progress Note Date: 06/24/17 Principal diagnosis: Shortness of breath which is multifactorial due to pneumonia and COPD exacerbation Patient is a 77-year-old male with a known history of hypertension, diabetes type 2, coronary artery disease history of coronary artery bypass graft, degenerative joint disease and COPD, not on home oxygen came to ER with complaints of shortness of breath for the past 7 days. Patient was also having subjective fevers and chills and shakes. Patient was seen at [facility] recently and wants to admit him but patient disagreed. Patient has been having worsening shortness of breath and chest pain with deep breathing. Otherwise patient denied any nausea vomiting or abdominal pain. No dysuria or hematuria. Patient is hard of hearing and is also poor historian. Patient's is at bedside. Denied any headache or dizziness or lightheadedness. Pulse ox was 72 % on admission. Patient is also complaining of right foot swelling about one day ago which has resolved now. Patient continues smoke 1 pack per day D-dimer 0.77 Troponin 0.040 Chest x-ray showed new right lower lobe opacity CT angiogram of the chest showed age indeterminate segmental and subsegmental nonocclusive left lower lobe pulmonary emboli Central lobar pulmonary emphysema. Multifocal pneumonia. Hiatal hernia. 06/23/2017 Patient says that his breathing is better otherwise still having shortness of breath. No complaints of chest pain. 2-D echo cardiac exam was ordered. Patient was started on anticoagulation with heparin drip and Coumadin was initiated. Cardiology and pulmonary is following. Congestive and antibiotics and IV steroids and breathing treatments. 06/24/2017 Patient is lying in the bed comfortable Patient is a poor historian. Complete review of systems could not be obtained from the patient. Breathing status is slightly improved. No fever no chills. Otherwise blood sugar is elevated likely due to steroids. Patient was started back on his Lantus dose and added preprandial insulin. We'll check his B A1c We will follow up 2-D echocardiogram report. Cardiology and pulmonary is following. Patient is being continued on warfarin for pulmonary embolism. Insulin Active Medications Active Medications Generic Name Dose Route Start Last Admin Trade Name Freq PRN Reason Stop Dose Admin Albuterol/Ipratropium 3 ml 06/23/17 16:00 06/24/17 20:23 Duoneb 0.5 Mg-3 Mg/3 Ml Soln INHALATION 3 ml RT-QID JULIANNA Administration Alprazolam 0.5 mg 06/22/17 17:00 06/24/17 20:18 Xanax PO 0.5 mg Q8H PRN Administration Anxiety Amlodipine Besylate 5 mg 06/22/17 21:00 06/24/17 20:17 Norvasc PO 5 mg BID JULIANNA Administration Atenolol 25 mg 06/22/17 21:00 06/24/17 20:17 Tenormin PO 25 mg BID JULIANNA Administration Atorvastatin Calcium 40 mg 06/22/17 21:00 06/24/17 20:17 Lipitor PO 40 mg HS JULIANNA Administration Budesonide 0.5 mg 06/23/17 20:00 06/24/17 20:23 Pulmicort INHALATION 0.5 mg RT-BID JULIANNA Administration Ceftriaxone Sodium 1,000 mg 06/23/17 09:00 06/24/17 08:14 Rocephin IVP 1,000 mg Q24HR JULIANNA Administration Citalopram Hydrobromide 20 mg 06/22/17 21:00 06/24/17 20:18 Celexa PO 20 mg BID JULIANNA Administration Clopidogrel Bisulfate 75 mg 06/23/17 09:00 06/24/17 08:13 Plavix PO 75 mg DAILY JULIANNA Administration Doxycycline Monohydrate 100 mg 06/22/17 21:00 06/24/17 20:17 Vibramycin PO 100 mg BID JULIANNA Administration Furosemide 20 mg 06/22/17 21:00 06/24/17 20:18 Lasix PO 20 mg BID JULIANNA Administration Gabapentin 600 mg 06/22/17 22:00 06/24/17 20:18 Neurontin PO 600 mg TID JULIANNA Administration Insulin Human Regular 100 unit 101 mls @ 0 mls/hr 06/24/17 21:45 06/25/17 00: 21 / Sodium Chloride IV 0.2 units/kg/hr .Q0M [facility] 17 mls/hr Protocol Titration Titrate Insulin Aspart 0 unit 06/22/17 22:37 06/24/17 23:26 Novolog SQ Not Given ACHS [facility] Protocol Insulin Aspart 4 unit 06/25/17 07:30 Novolog SQ AC-TID [facility] Insulin Detemir 15 unit 06/24/17 21:00 Levemir SQ HS [facility] Levothyroxine Sodium 50 mcg 06/23/17 06:30 06/23/17 07:00 Synthroid PO 50 mcg Q72H JULIANNA Administration Lisinopril 20 mg 06/25/17 09:00 Zestril PO DAILY [facility] Methylprednisolone Sodium Succinate 60 mg 06/23/17 00:00 06/24/17 18:37 Solu-Medrol IV 60 mg Q6HR JULIANNA Administration Morphine Sulfate 12 mg 06/22/17 16:54 Morphine Oral Madelyn 2mg/Ml PO Q5M PRN Chest Pain Nicotine 1 patch 06/23/17 14:45 06/24/17 08:15 Habitrol 21mg/24hr Patch TRANSDERM Not Given DAILY [facility] Nitroglycerin 0.4 mg 06/22/17 16:54 Nitrostat SUBLINGUAL Q5M PRN Chest Pain Oxycodone/Acetaminophen 1 each 06/22/17 22:00 06/24/17 20:18 Percocet 7.5-325 PO 1 each TID PRN Administration Pain - Moderate Warfarin Sodium 5 mg 06/23/17 20:45 06/24/17 17:11 Coumadin PO Not Given DAILY@1800 [facility] Zolpidem Tartrate 5 mg 06/22/17 21:00 06/24/17 20:18 Ambien PO 5 mg HS PRN Administration Insomnia Objective - Vital Signs Vital signs: Vital Signs Temp 97.5 F L 06/24/17 16:00 Pulse 80 06/24/17 20:54 Resp 18 06/24/17 20:00 BP 168/75 06/24/17 16:00 Pulse Ox 99 06/24/17 16:00 Intake & Output 06/24/17 06/24/17 06/25/17 06:59 18:59 06:59 Intake Total 1310 1020 Output Total 400 1300 Balance 910 1020 -1300 Weight 80.5 kg Intake: IV 800 600 0.9 800 600 Intake, IV Titration 270 Amount Heparin Sod,Pork in 0.45% 270 NaCl 25,000 unit In 0.45 % NaCl 1 500ml.bag @ 18 UNITS/KG/HR 29.34 mls/hr IV .Q17H3M JULIANNA Rx#: [id number] Oral 240 420 Output: Urine 400 1300 Other: Voiding Method Toilet Toilet Urinal Urinal # Voids 1 - Exam Patient is lying in the bed comfortably, mild distress, awake alert and oriented.. Patient is hard of hearing and has hearing aid HEENT: Normocephalic. Neck is supple. Pupils reactive. Nostrils clear. Oral cavity is moist. Ears reveal no drainage. Neck reveals no JVD, carotid bruits, or thyromegaly. CHEST EXAMINATION: Trachea is central. Symmetrical expansion. Bilateral air entry improved and expiratory wheezing. CARDIAC: Normal S1, S2 with no gallops. No murmurs ABDOMEN: Soft. Bowel sounds normal. No organomegaly. No abdominal bruits. Extremities: reveal no edema. No clubbing or cyanosis Neurologically awake, alert, oriented x3 with well-coordinated movements. No focal deficits noted Skin: No rash or skin lesions. Psychiatric: Cooperative. Nonsuicidal Musculoskeletal: No joint swelling or deformity. Normal range of motion. - Labs CBC & Chem 7: 06/23/17 05:40 06/23/17 05:40 Labs: Abnormal Lab Results - Last 24 Hours (Table) 06/24/17 06/24/17 06/24/17 Range/Units 04:10 06:07 11:44 INR 1.2 H (<1.2) APTT 57.1 H (22.0-30.0) sec POC Glucose (mg/dL) 308 H 290 H (75-99) mg/dL 06/24/17 06/24/17 Range/Units 16:37 21:07 INR (<1.2) APTT (22.0-30.0) sec POC Glucose (mg/dL) 333 H 477 H (75-99) mg/dL Microbiology - Last 24 Hours (Table) 06/22/17 12:58 Blood Culture - Preliminary Blood No Growth after 48 hours Assessment and Plan Assessment: Acute hypoxic respiratory failure on admission Shortness of breath secondary to multifactorial with COPD, pneumonia multifocal and subsegmental pulmonary embolism with undetermined age Subsegmental pulmonary embolism. Age undetermined Acute COPD exacerbation Multifocal pneumonia Troponin leak. Unlikely acute coronary syndrome Nicotine addiction Hypertension Hypothyroidism Diabetes type 2. Insulin-dependent Coronary artery disease with history of bypass graft Osteoarthritis Spinal stenosis DVT prophylaxis. Patient is already on heparin IV Plan: Patient be continued on antibiotics in the form of ceftriaxone and doxycycline. Continue the breathing treatments and IV steroids. Patient was started on heparin drip and continue to follow closely. Insulin dosing. Pulmonary is following. Continue with home medications and further recommendations based on the clinical course. Prognosis is guarded. Patient has multiple medical problems and complex issues. Time with Patient: Greater than 30
[2017-06-25] MEDS: methylPREDNISolone SOD SUCCI 125 MG/2 ML VIAL IV SCH ×5 (00:50→23:16)
[2017-06-25 01:02] LABS: Glucose,Whole Blood 234 mg/dL (75-99)
[2017-06-25 02:47] LABS: Glucose,Whole Blood 186 mg/dL (75-99)
[2017-06-25 04:18] LABS: Glucose,Whole Blood 114 mg/dL (75-99)
[2017-06-25 05:08] LABS: Glucose,Whole Blood 150 mg/dL (75-99)
[2017-06-25 06:11] LABS: Glucose,Whole Blood 171 mg/dL (75-99)
[2017-06-25] MEDS: INSULIN ASPART 100 UNIT/ML 1 ML 10 ML VIAL SQ SCH ×7 (06:36→21:56)
[2017-06-25 06:40] LABS: INR 1.4 (<1.2)
[2017-06-25 06:47] LABS: Anion Gap 9 mmol/L; Blood Urea Nitrogen 22 mg/dL (9-20); Calcium 8.5 mg/dL (8.4-10.2); Carbon Dioxide 32 mmol/L (22-30); Chloride 102 mmol/L (98-107); Glucose 169 mg/dL (74-99); Sodium 143 mmol/L (137-145)
[2017-06-25 06:50] LABS: Basophils % (A) 0 %; Eosinophils % (A) 0 %; HCT 30.6 % (39.0-53.0); Lymphocytes # (A) 0.9 k/uL (1.0-4.8); Lymphocytes % (A) 9 %; MCH 34.1 pg (25.0-35.0); MCHC 32.6 g/dL (31.0-37.0); MCV 104.6 fL (80.0-100.0); Macrocytosis Slight; Mean Platelet Volume 7.4; Monocytes # (A) 0.6 k/uL (0-1.0); Monocytes % (A) 5 %; Neutrophils # (A) 8.9 k/uL (1.3-7.7); Neutrophils % (A) 84 %; Platelet Count 432 k/uL (150-450); RBC 2.92 m/uL (4.30-5.90); RDW 13.5 % (11.5-15.5); WBC 10.6 k/uL (3.8-10.6)
[2017-06-25 07:28] LABS: Glucose,Whole Blood 202 mg/dL (75-99)
[2017-06-25] MEDS: cefTRIAXone IN SWFI 1,000 MG/10 ML SYRINGE IVP SCH (08:09)
[2017-06-25] MEDS: NICOTINE 21MG/24HR PATCH TRANSDERM SCH (08:09)
[2017-06-25] MEDS: CLOPIDOGREL 75 MG TAB PO SCH (08:10)
[2017-06-25] MEDS: ATENOLOL 25 MG TAB PO SCH ×2 (08:10→21:11)
[2017-06-25] MEDS: amLODIPine 5 MG TAB PO SCH ×2 (08:10→21:11)
[2017-06-25] MEDS: FUROSEMIDE 20 MG TAB PO SCH ×2 (08:10→21:12)
[2017-06-25] MEDS: DOXYCYCLINE 50 MG CAP PO SCH ×2 (08:10→21:12)
[2017-06-25] MEDS: CITALOPRAM HYDROBROMIDE 20 MG TAB PO SCH ×2 (08:10→21:12)
[2017-06-25] MEDS: ALPRAZolam 0.5 MG TAB PO PRN ×2 (08:11→21:15)
[2017-06-25] MEDS: oxyCODONE-APAP 7.5-325MG 1 EACH TAB PO PRN ×3 (08:11→21:12)
[2017-06-25] MEDS: GABAPENTIN 300 MG CAP PO SCH ×3 (08:11→21:12)
[2017-06-25 08:24] LABS: Glucose,Whole Blood 220 mg/dL (75-99)
[2017-06-25] MEDS: IPRATROPIUM-ALBUTEROL 3 ML NEB INHALATION SCH ×4 (08:46→19:47)
[2017-06-25] MEDS: BUDESONIDE 0.5 MG/2 ML NEBU INHALATION SCH ×2 (08:46→19:47)
[2017-06-25] MEDS ORDERED: LISINOPRIL 20 MG TAB PO SCH (09:00)
--- NOTE | 2017-06-25 09:11 | P.PN ---
Subjective Progress Note Date: 06/25/17 Principal diagnosis: Shortness of breath This is a pleasant 77-year-old gentleman with a past medical history significant for peripheral arterial disease, COPD, hypertension, and dyslipidemia, who I I follow in the office as an outpatient who unfortunately continues to smoke, presented to the hospital complaining of shortness of breath. He does have a baseline exertional dyspnea but over the last week shortness of breath has gotten worse. Did not have any symptoms of chest pain or chest discomfort. He was experiencing cough productive of colored sputum as well as fever and chills. No bilateral lower extremities edema. No dizziness or lightheadedness. And no syncope. The EKG showed sinus rhythm with ST and T wave abnormalities seems to be diffuse. The cardiac enzymes were checked and came in to be unremarkable. The chest x-ray showed cardiomegaly with possible infiltrate consistent with pneumonia. The computed tomography scan of the chest was performed after abnormal d-dimer and that showed possible chronic PE. On follow-up with the patient today, he is feeling slightly better interim of shortness of breath as well as cough. He still have bilateral expiratory wheezing but it seems to be better today as well. I do not believe that the patient has a PE on the computed tomography scan. Beside that I am going to increase the dose of lisinopril for better blood pressure control. We'll continue following up with him. Objective - Vital Signs Vital signs: Vital Signs Temp 97.0 F L 06/25/17 08:00 Pulse 84 06/25/17 09:03 Resp 20 06/25/17 08:00 BP 155/74 06/25/17 08:00 Pulse Ox 93 L 06/25/17 08:00 Intake & Output 06/24/17 06/25/17 06/25/17 18:59 06:59 18:59 Intake Total 1020 70.084 185.667 Output Total 2150 Balance 1020 -2079.916 185.667 Weight 80.3 kg Intake: IV 600 0.9 600 Intake, IV Titration 70.084 5.667 Amount Insulin Regular 100 unit 70.084 5.667 In Sodium Chloride 0.9% 100 ml @ Titrate IV .Q0M REPLACED BY [facility] Rx#:[id number] Oral 420 180 Output: Urine 2150 Other: Voiding Method Urinal # Voids 1 # Bowel Movements 1 - Constitutional General appearance: Present: no acute distress - Respiratory Respiratory: bilateral: wheezing - Cardiovascular Rhythm: regular Heart sounds: normal: S1, S2 - Labs CBC & Chem 7: 06/25/17 06:19 06/25/17 06:19 Labs: Abnormal Lab Results - Last 24 Hours (Table) 06/24/17 06/24/17 06/24/17 Range/Units 11:44 16:37 21:07 RBC (4.30-5.90) m/uL Hgb (13.0-17.5) gm/dL Hct (39.0-53.0) % MCV (80.0-100.0) fL Neutrophils # (1.3-7.7) k/uL Lymphocytes # (1.0-4.8) k/uL PT (9.0-12.0) sec INR (<1.2) Carbon Dioxide (22-30) mmol/L BUN (9-20) mg/dL Creatinine (0.66-1.25) mg/dL Glucose (74-99) mg/dL POC Glucose (mg/dL) 290 H 333 H 477 H (75-99) mg/dL 06/24/17 06/24/17 06/24/17 Range/Units 22:44 23:17 23:44 RBC (4.30-5.90) m/uL Hgb (13.0-17.5) gm/dL Hct (39.0-53.0) % MCV (80.0-100.0) fL Neutrophils # (1.3-7.7) k/uL Lymphocytes # (1.0-4.8) k/uL PT (9.0-12.0) sec INR (<1.2) Carbon Dioxide (22-30) mmol/L BUN (9-20) mg/dL Creatinine (0.66-1.25) mg/dL Glucose (74-99) mg/dL POC Glucose (mg/dL) 434 H 360 H 413 H (75-99) mg/dL 06/25/17 06/25/17 06/25/17 Range/Units 00:16 00:44 02:45 RBC (4.30-5.90) m/uL Hgb (13.0-17.5) gm/dL Hct (39.0-53.0) % MCV (80.0-100.0) fL Neutrophils # (1.3-7.7) k/uL Lymphocytes # (1.0-4.8) k/uL PT (9.0-12.0) sec INR (<1.2) Carbon Dioxide (22-30) mmol/L BUN (9-20) mg/dL Creatinine (0.66-1.25) mg/dL Glucose (74-99) mg/dL POC Glucose (mg/dL) 315 H 234 H 186 H (75-99) mg/dL 06/25/17 06/25/17 06/25/17 Range/Units 04:06 05:07 06:09 RBC (4.30-5.90) m/uL Hgb (13.0-17.5) gm/dL Hct (39.0-53.0) % MCV (80.0-100.0) fL Neutrophils # (1.3-7.7) k/uL Lymphocytes # (1.0-4.8) k/uL PT (9.0-12.0) sec INR (<1.2) Carbon Dioxide (22-30) mmol/L BUN (9-20) mg/dL Creatinine (0.66-1.25) mg/dL Glucose (74-99) mg/dL POC Glucose (mg/dL) 114 H 150 H 171 H (75-99) mg/dL 06/25/17 06/25/17 06/25/17 Range/Units 06:19 06:19 06:19 RBC 2.92 L (4.30-5.90) m/uL Hgb 10.0 L (13.0-17.5) gm/dL Hct 30.6 L (39.0-53.0) % MCV 104.6 H (80.0-100.0) fL Neutrophils # 8.9 H (1.3-7.7) k/uL Lymphocytes # 0.9 L (1.0-4.8) k/uL PT 13.0 H (9.0-12.0) sec INR 1.4 H (<1.2) Carbon Dioxide 32 H (22-30) mmol/L BUN 22 H (9-20) mg/dL Creatinine 0.60 L (0.66-1.25) mg/dL Glucose 169 H (74-99) mg/dL POC Glucose (mg/dL) (75-99) mg/dL 06/25/17 06/25/17 Range/Units 07:08 08:03 RBC (4.30-5.90) m/uL Hgb (13.0-17.5) gm/dL Hct (39.0-53.0) % MCV (80.0-100.0) fL Neutrophils # (1.3-7.7) k/uL Lymphocytes # (1.0-4.8) k/uL PT (9.0-12.0) sec INR (<1.2) Carbon Dioxide (22-30) mmol/L BUN (9-20) mg/dL Creatinine (0.66-1.25) mg/dL Glucose (74-99) mg/dL POC Glucose (mg/dL) 202 H 220 H (75-99) mg/dL Microbiology - Last 24 Hours (Table) 06/24/17 20:28 Sputum Culture - Preliminary Sputum 06/22/17 12:58 Blood Culture - Preliminary Blood No Growth after 48 hours Assessment and Plan Assessment: Assessment #1 acute on chronic respiratory failure #2 pneumonia #3 significant history of smoking #4 peripheral arterial disease #5 hypertension #6 dyslipidemia Plan #1 the patient shortness of breath is more related to COPD exacerbation/ pneumonia more than congestive heart failure. #2 continue the oral diuretics #3 increase the dose of lisinopril for better blood pressure control #4 follow-up with him Thank you for allowing us participate in his care and we'll continue following up with the patient
[2017-06-25 10:05] VITALS: BMI 24.0
[2017-06-25 11:01] LABS: Glucose,Whole Blood 240 mg/dL (75-99)
[2017-06-25 12:09] LABS: Glucose,Whole Blood 180 mg/dL (75-99)
[2017-06-25 13:10] LABS: Hemoglobin A1C 7.7 % (4.0-6.0)
--- NOTE | 2017-06-25 14:32 | P.PN ---
Subjective Progress Note Date: 06/25/17 Principal diagnosis: Acute hypoxic respirator failure related to acute COPD exacerbation, hypertension and hypertensive cardiovascular disease, left upper lobe nodule, chronic pulmonary embolism 06/25/2017, patient seen eval reexamined during the rounds clinically doing well awake and alert still have shortness of breath on activity and exertion does have cough patient has been tolerating antibiotics breathing treatments steroids fairly well along with oral Coumadin computed tomography scan of the chest has been reviewed extensive degree of bullous lung disease around the left upper lobe nodule is present making it a very high risk for CT guided lung biopsy and or or transbronchial bronchoscopic lung biopsy 06/24/2017, patient seen eval reexamined during the rounds he still short of breath is still of ongoing cough congestion but severity has improved patient remains on broad-spectrum antibiotics breathing treatment and steroids seems to be helping patient is on optimized medical therapy gently being diuresed him a care plan discussed with the son present at bedside, patient is off of heparin drip now on Coumadin 77-year-old male with extensive history of smoking and nicotine use his significant cardiovascular disease presented emergency department with progressive increased shortness of breath and cough and wheezing is started about a week to 10 days ago prior to that patient was presented at [facility] was advised admission where he is Due to worsening problem patient presented yesterday was found to have saturation of only 72%, workup and evaluation revealed right lower lobe infiltrate on chest x-ray as well as the left lower lobe pulmonary embolism on CT [place] which is nonocclusive, in addition to that patient has left apical nodule which is 1.4 x 1.7 cm in size has somewhat groundglass attenuation, extensive emphysema and COPD-like changes were noted as well as Objective - Vital Signs Vital signs: Vital Signs Temp 98.3 F 06/25/17 12:00 Pulse 80 06/25/17 12:19 Resp 18 06/25/17 12:00 BP 132/59 06/25/17 12:00 Pulse Ox 92 L 06/25/17 12:00 Intake & Output 06/24/17 06/25/17 06/25/17 18:59 06:59 18:59 Intake Total 1020 70.084 382.933 Output Total 2150 Balance 1020 -2079.916 382.933 Weight 80.3 kg 80.3 kg Intake: IV 600 0.9 600 Intake, IV Titration 70.084 22.933 Amount Insulin Regular 100 unit 70.084 22.933 In Sodium Chloride 0.9% 100 ml @ Titrate IV .Q0M [facility] Rx#:[id number] Oral 420 360 Output: Urine 2150 Other: Voiding Method Urinal # Voids 1 # Bowel Movements 1 - Exam Patient is lying in the bed comfortably, mild distress, awake alert and oriented.. Patient is hard of hearing and has hearing aid HEENT: Normocephalic. Neck is supple. Pupils reactive. Nostrils clear. Oral cavity is moist. Ears reveal no drainage. Neck reveals no JVD, carotid bruits, or thyromegaly. CHEST/LUNGS EXAMINATION: Trachea is central. Symmetrical expansion. Bilateral diffuse rhonchi and crackles and expiratory wheezing. CARDIAC: Normal S1, S2 with no gallops. No murmurs ABDOMEN: Soft. Bowel sounds normal. No organomegaly. No abdominal bruits. Extremities: reveal no edema. No clubbing or cyanosis Neurologically awake, alert, oriented x3 with well-coordinated movements. No focal deficits noted Skin: No rash or skin lesions. Psychiatric: Cooperative. Nonsuicidal Musculoskeletal: No joint swelling or deformity. Normal range of motion. - Labs CBC & Chem 7: 06/25/17 06:19 06/25/17 06:19 Labs: Abnormal Lab Results - Last 24 Hours (Table) 06/24/17 06/24/17 06/24/17 Range/Units 16:37 21:07 22:44 RBC (4.30-5.90) m/uL Hgb (13.0-17.5) gm/dL Hct (39.0-53.0) % MCV (80.0-100.0) fL Neutrophils # (1.3-7.7) k/uL Lymphocytes # (1.0-4.8) k/uL PT (9.0-12.0) sec INR (<1.2) Carbon Dioxide (22-30) mmol/L BUN (9-20) mg/dL Creatinine (0.66-1.25) mg/dL Glucose (74-99) mg/dL POC Glucose (mg/dL) 333 H 477 H 434 H (75-99) mg/dL 06/24/17 06/24/17 06/25/17 Range/Units 23:17 23:44 00:16 RBC (4.30-5.90) m/uL Hgb (13.0-17.5) gm/dL Hct (39.0-53.0) % MCV (80.0-100.0) fL Neutrophils # (1.3-7.7) k/uL Lymphocytes # (1.0-4.8) k/uL PT (9.0-12.0) sec INR (<1.2) Carbon Dioxide (22-30) mmol/L BUN (9-20) mg/dL Creatinine (0.66-1.25) mg/dL Glucose (74-99) mg/dL POC Glucose (mg/dL) 360 H 413 H 315 H (75-99) mg/dL 06/25/17 06/25/17 06/25/17 Range/Units 00:44 02:45 04:06 RBC (4.30-5.90) m/uL Hgb (13.0-17.5) gm/dL Hct (39.0-53.0) % MCV (80.0-100.0) fL Neutrophils # (1.3-7.7) k/uL Lymphocytes # (1.0-4.8) k/uL PT (9.0-12.0) sec INR (<1.2) Carbon Dioxide (22-30) mmol/L BUN (9-20) mg/dL Creatinine (0.66-1.25) mg/dL Glucose (74-99) mg/dL POC Glucose (mg/dL) 234 H 186 H 114 H (75-99) mg/dL 06/25/17 06/25/17 06/25/17 Range/Units 05:07 06:09 06:19 RBC (4.30-5.90) m/uL Hgb (13.0-17.5) gm/dL Hct (39.0-53.0) % MCV (80.0-100.0) fL Neutrophils # (1.3-7.7) k/uL Lymphocytes # (1.0-4.8) k/uL PT 13.0 H (9.0-12.0) sec INR 1.4 H (<1.2) Carbon Dioxide (22-30) mmol/L BUN (9-20) mg/dL Creatinine (0.66-1.25) mg/dL Glucose (74-99) mg/dL POC Glucose (mg/dL) 150 H 171 H (75-99) mg/dL 06/25/17 06/25/17 06/25/17 Range/Units 06:19 06:19 07:08 RBC 2.92 L (4.30-5.90) m/uL Hgb 10.0 L (13.0-17.5) gm/dL Hct 30.6 L (39.0-53.0) % MCV 104.6 H (80.0-100.0) fL Neutrophils # 8.9 H (1.3-7.7) k/uL Lymphocytes # 0.9 L (1.0-4.8) k/uL PT (9.0-12.0) sec INR (<1.2) Carbon Dioxide 32 H (22-30) mmol/L BUN 22 H (9-20) mg/dL Creatinine 0.60 L (0.66-1.25) mg/dL Glucose 169 H (74-99) mg/dL POC Glucose (mg/dL) 202 H (75-99) mg/dL 06/25/17 06/25/17 06/25/17 Range/Units 08:03 10:25 11:57 RBC (4.30-5.90) m/uL Hgb (13.0-17.5) gm/dL Hct (39.0-53.0) % MCV (80.0-100.0) fL Neutrophils # (1.3-7.7) k/uL Lymphocytes # (1.0-4.8) k/uL PT (9.0-12.0) sec INR (<1.2) Carbon Dioxide (22-30) mmol/L BUN (9-20) mg/dL Creatinine (0.66-1.25) mg/dL Glucose (74-99) mg/dL POC Glucose (mg/dL) 220 H 240 H 180 H (75-99) mg/dL Microbiology - Last 24 Hours (Table) 06/24/17 20:28 Gram Stain - Preliminary Sputum Sputum Culture - Preliminary 06/22/17 12:58 Blood Culture - Preliminary Blood No Growth after 48 hours Assessment and Plan Assessment: Right lower lobe pneumonia Acute COPD exacerbation Left upper lobe 1.7 cm lung nodule Acute hypoxic restrictive failure related to above Baseline severe COPD emphysema Hypertension hypertensive cardiovascular disease Left lower lobe subsegmental pulmonary embolism probably old on Coumadin Diffuse coronary artery disease Peripheral arterial disease Dyslipidemia Extensive history of smoking and nicotine use Plan: IV gentle rehydration Broad-spectrum antibiotics Breathing treatments with B2 agonist and inhaled steroid IV steroids On Coumadin now Follow-up on sputum culture results and report Optimize cardiac therapy Further recommendations pending plan of care as per clinical response of the patient PET scan as outpatient and lung biopsy if patient and family is agreeable, and other option is for the vaginal resection of the left upper lobe nodule will make him more definitive decision after the PET scan these issues discussed with the family patient at length Time with Patient: Greater than 30
[2017-06-25 14:54] LABS: Glucose,Whole Blood 154 mg/dL (75-99)
[2017-06-25 16:51] LABS: Glucose,Whole Blood 139 mg/dL (75-99)
--- NOTE | 2017-06-25 16:51 | P.PN ---
Subjective Progress Note Date: 06/25/17 Principal diagnosis: Pneumonia Acute exacerbation COPD Patient is a 77-year-old male with a known history of hypertension, diabetes type 2, coronary artery disease history of coronary artery bypass graft, degenerative joint disease and COPD, not on home oxygen came to ER with complaints of shortness of breath for the past 7 days. Patient was also having subjective fevers and chills and shakes. Patient was seen at [facility] recently and wants to admit him but patient disagreed. Patient has been having worsening shortness of breath and chest pain with deep breathing. Otherwise patient denied any nausea vomiting or abdominal pain. No dysuria or hematuria. Patient is hard of hearing and is also poor historian. Patient's is at bedside. Denied any headache or dizziness or lightheadedness. Pulse ox was 72 % on admission. Patient is also complaining of right foot swelling about one day ago which has resolved now. Patient continues smoke 1 pack per day D-dimer 0.77 Troponin 0.040 Chest x-ray showed new right lower lobe opacity CT angiogram of the chest showed age indeterminate segmental and subsegmental nonocclusive left lower lobe pulmonary emboli Central lobar pulmonary emphysema. Multifocal pneumonia. Hiatal hernia. 06/25/2017 Patient is seen and evaluated at bedside; continues to complain of shortness of breath with minimal activity; continues to complain of cough with thick sputum; patient relates that her pain medications have been reduced immensely and wants his Percocet increased due to uncontrolled pain; patient relates that he has been told by the pulmonary service that his breathing can get suppressed with excessive use of narcotics; patient very agitated and demanding his Percocet be increased. Objective - Vital Signs Vital signs: Vital Signs Temp 97.5 F L 06/25/17 16:00 Pulse 82 06/25/17 16:08 Resp 18 06/25/17 16:00 BP 146/65 06/25/17 16:00 Pulse Ox 100 06/25/17 16:00 Intake & Output 06/24/17 06/25/17 06/25/17 18:59 06:59 18:59 Intake Total 1020 70.084 550.916 Output Total 2150 Balance 1020 -2079.916 550.916 Weight 80.3 kg 80.3 kg Intake: IV 600 160 0.9 600 160 Intake, IV Titration 70.084 30.916 Amount Insulin Regular 100 unit 70.084 30.916 In Sodium Chloride 0.9% 100 ml @ Titrate IV .Q0M [facility] Rx#:[id number] Oral 420 360 Output: Urine 2150 Other: Voiding Method Urinal # Voids 1 # Bowel Movements 1 - Exam On exam, alert and oriented x3. Somewhat agitated HEENT: Conjunctivae normal. eyes normal. NECK: No JVD. No thyroid enlargement. No LNs CARDIOVASCULAR: S1, S2 muffled. No murmur RESPIRATION: Breath sounds diminished in the bases. Scattered rhonchi and crackles. No bronchial breathing. ABDOMEN: Soft, nontender . No guarding. no masses palpable. No ascites, No hepatosplenomegaly.Bowel sounds heard. LEGS: No edema. no swelling NERVOUS SYSTEM: Cranial N 2-12 grossly normal. Moves all 4 limbs. No focal deficits. No sensory deficit. No signs of cerebellar dysfucntion. Skin: no ulcer no rash Joints: No active swelling. No inflammation. Lymphatic system. No LN neck axilla or groin. - Labs CBC & Chem 7: 06/25/17 06:19 06/25/17 06:19 Labs: Abnormal Lab Results - Last 24 Hours (Table) 06/24/17 06/24/17 06/24/17 Range/Units 21:07 22:44 23:17 RBC (4.30-5.90) m/uL Hgb (13.0-17.5) gm/dL Hct (39.0-53.0) % MCV (80.0-100.0) fL Neutrophils # (1.3-7.7) k/uL Lymphocytes # (1.0-4.8) k/uL PT (9.0-12.0) sec INR (<1.2) Carbon Dioxide (22-30) mmol/L BUN (9-20) mg/dL Creatinine (0.66-1.25) mg/dL Glucose (74-99) mg/dL POC Glucose (mg/dL) 477 H 434 H 360 H (75-99) mg/dL Hemoglobin A1c (4.0-6.0) % 06/24/17 06/25/17 06/25/17 Range/Units 23:44 00:16 00:44 RBC (4.30-5.90) m/uL Hgb (13.0-17.5) gm/dL Hct (39.0-53.0) % MCV (80.0-100.0) fL Neutrophils # (1.3-7.7) k/uL Lymphocytes # (1.0-4.8) k/uL PT (9.0-12.0) sec INR (<1.2) Carbon Dioxide (22-30) mmol/L BUN (9-20) mg/dL Creatinine (0.66-1.25) mg/dL Glucose (74-99) mg/dL POC Glucose (mg/dL) 413 H 315 H 234 H (75-99) mg/dL Hemoglobin A1c (4.0-6.0) % 06/25/17 06/25/17 06/25/17 Range/Units 02:45 04:06 05:07 RBC (4.30-5.90) m/uL Hgb (13.0-17.5) gm/dL Hct (39.0-53.0) % MCV (80.0-100.0) fL Neutrophils # (1.3-7.7) k/uL Lymphocytes # (1.0-4.8) k/uL PT (9.0-12.0) sec INR (<1.2) Carbon Dioxide (22-30) mmol/L BUN (9-20) mg/dL Creatinine (0.66-1.25) mg/dL Glucose (74-99) mg/dL POC Glucose (mg/dL) 186 H 114 H 150 H (75-99) mg/dL Hemoglobin A1c (4.0-6.0) % 06/25/17 06/25/17 06/25/17 Range/Units 06:09 06:19 06:19 RBC 2.92 L (4.30-5.90) m/uL Hgb 10.0 L (13.0-17.5) gm/dL Hct 30.6 L (39.0-53.0) % MCV 104.6 H (80.0-100.0) fL Neutrophils # 8.9 H (1.3-7.7) k/uL Lymphocytes # 0.9 L (1.0-4.8) k/uL PT 13.0 H (9.0-12.0) sec INR 1.4 H (<1.2) Carbon Dioxide (22-30) mmol/L BUN (9-20) mg/dL Creatinine (0.66-1.25) mg/dL Glucose (74-99) mg/dL POC Glucose (mg/dL) 171 H (75-99) mg/dL Hemoglobin A1c (4.0-6.0) % 06/25/17 06/25/17 06/25/17 Range/Units 06:19 06:19 07:08 RBC (4.30-5.90) m/uL Hgb (13.0-17.5) gm/dL Hct (39.0-53.0) % MCV (80.0-100.0) fL Neutrophils # (1.3-7.7) k/uL Lymphocytes # (1.0-4.8) k/uL PT (9.0-12.0) sec INR (<1.2) Carbon Dioxide 32 H (22-30) mmol/L BUN 22 H (9-20) mg/dL Creatinine 0.60 L (0.66-1.25) mg/dL Glucose 169 H (74-99) mg/dL POC Glucose (mg/dL) 202 H (75-99) mg/dL Hemoglobin A1c 7.7 H (4.0-6.0) % 06/25/17 06/25/17 06/25/17 Range/Units 08:03 10:25 11:57 RBC (4.30-5.90) m/uL Hgb (13.0-17.5) gm/dL Hct (39.0-53.0) % MCV (80.0-100.0) fL Neutrophils # (1.3-7.7) k/uL Lymphocytes # (1.0-4.8) k/uL PT (9.0-12.0) sec INR (<1.2) Carbon Dioxide (22-30) mmol/L BUN (9-20) mg/dL Creatinine (0.66-1.25) mg/dL Glucose (74-99) mg/dL POC Glucose (mg/dL) 220 H 240 H 180 H (75-99) mg/dL Hemoglobin A1c (4.0-6.0) % 06/25/17 Range/Units 14:52 RBC (4.30-5.90) m/uL Hgb (13.0-17.5) gm/dL Hct (39.0-53.0) % MCV (80.0-100.0) fL Neutrophils # (1.3-7.7) k/uL Lymphocytes # (1.0-4.8) k/uL PT (9.0-12.0) sec INR (<1.2) Carbon Dioxide (22-30) mmol/L BUN (9-20) mg/dL Creatinine (0.66-1.25) mg/dL Glucose (74-99) mg/dL POC Glucose (mg/dL) 154 H (75-99) mg/dL Hemoglobin A1c (4.0-6.0) % Microbiology - Last 24 Hours (Table) 06/22/17 12:58 Blood Culture - Preliminary Blood No Growth after 72 hours 06/24/17 20:28 Gram Stain - Preliminary Sputum Sputum Culture - Preliminary Assessment and Plan Assessment: 1. Right pneumonia 2. Left upper lung nodule 3. Acute hypoxic respiratory failure 4. Severe COPD; in acute exacerbation 5. Hypertensive cardiovascular disease 6. Left lower lobe segmental PE; patient remains on Coumadin 7. Diffuse coronary artery disease 8. Peripheral vascular occlusive disease 9. Hyperlipidemia 10. Extensive history of smoking and nicotine use; continues to smoke Plan; We will continue with the IV hydration; continue IV antibiotics per pulmonary's recommendation; patient remains on nebulizer treatments with bronchodilators and steroids; IV steroids remain in use; we will continue with the Coumadin as prescribed and continue to monitor PT and INR; coronary recommending follow-up on sputum culture and adjustment of antibiotics accordingly; continue all home medications. Further recommendations depending on clinical response of patient
[2017-06-25] MEDS: WARFARIN 5 MG TAB PO SCH (17:53)
[2017-06-25 21:00] LABS: Glucose,Whole Blood 444 mg/dL (75-99)
[2017-06-25] MEDS ORDERED: INSULIN DETEMIR 100 UNIT/ML 10 ML VIAL SQ SCH (21:00)
[2017-06-25] MEDS: ATORVASTATIN 40 MG TAB PO SCH (21:11)
[2017-06-25 22:00] LABS: Glucose,Whole Blood 479 mg/dL (75-99)
[2017-06-25 23:26] LABS: Glucose,Whole Blood 435 mg/dL (75-99)
[2017-06-26 06:12] LABS: INR 1.3 (<1.2); Prothrombin Time 12.4 sec (9.0-12.0)
[2017-06-26 06:18] LABS: Glucose,Whole Blood 238 mg/dL (75-99)
[2017-06-26] MEDS: INSULIN ASPART 100 UNIT/ML 1 ML 10 ML VIAL SQ SCH ×7 (06:40→20:39)
[2017-06-26] MEDS: methylPREDNISolone SOD SUCCI 125 MG/2 ML VIAL IV SCH ×4 (06:40→23:10)
[2017-06-26] MEDS: BUDESONIDE 0.5 MG/2 ML NEBU INHALATION SCH ×2 (07:46→19:38)
[2017-06-26] MEDS: IPRATROPIUM-ALBUTEROL 3 ML NEB INHALATION SCH ×4 (07:46→19:38)
[2017-06-26] MEDS: ATENOLOL 25 MG TAB PO SCH ×2 (08:50→20:31)
[2017-06-26] MEDS: CITALOPRAM HYDROBROMIDE 20 MG TAB PO SCH ×2 (08:50→20:31)
[2017-06-26] MEDS: amLODIPine 5 MG TAB PO SCH ×2 (08:50→20:31)
[2017-06-26] MEDS: CLOPIDOGREL 75 MG TAB PO SCH (08:51)
[2017-06-26] MEDS: FUROSEMIDE 20 MG TAB PO SCH ×2 (08:51→20:31)
[2017-06-26] MEDS: GABAPENTIN 300 MG CAP PO SCH ×3 (08:51→20:32)
[2017-06-26] MEDS: DOXYCYCLINE 50 MG CAP PO SCH ×2 (08:51→20:31)
[2017-06-26] MEDS: LISINOPRIL 10 MG TAB PO SCH (08:52)
[2017-06-26] MEDS: NICOTINE 21MG/24HR PATCH TRANSDERM SCH (08:52)
[2017-06-26] MEDS: oxyCODONE-APAP 7.5-325MG 1 EACH TAB PO PRN ×2 (08:56→19:01)
[2017-06-26] MEDS: ALPRAZolam 0.5 MG TAB PO PRN ×2 (08:56→19:02)
[2017-06-26] MEDS: cefTRIAXone IN SWFI 1,000 MG/10 ML SYRINGE IVP SCH (08:56)
--- NOTE | 2017-06-26 09:44 | P.PN ---
Subjective Progress Note Date: 06/26/17 Principal diagnosis: Shortness of breath This is a pleasant 77-year-old gentleman with a past medical history significant for peripheral arterial disease, COPD, hypertension, and dyslipidemia, who I I follow in the office as an outpatient who unfortunately continues to smoke, presented to the hospital complaining of shortness of breath. He does have a baseline exertional dyspnea but over the last week shortness of breath has gotten worse. Did not have any symptoms of chest pain or chest discomfort. He was experiencing cough productive of colored sputum as well as fever and chills. No bilateral lower extremities edema. No dizziness or lightheadedness. And no syncope. The EKG showed sinus rhythm with ST and T wave abnormalities seems to be diffuse. The cardiac enzymes were checked and came in to be unremarkable. The chest x-ray showed cardiomegaly with possible infiltrate consistent with pneumonia. The computed tomography scan of the chest was performed after abnormal d-dimer and that showed possible chronic PE. On follow-up with the patient today, he is feeling slightly better interim of shortness of breath as well as cough. He sounds better. From the cardiac vascular standpoint of view, the patient can be discharged home. Objective - Vital Signs Vital signs: Vital Signs Temp 97.5 F L 06/26/17 04:00 Pulse 56 L 06/26/17 08:03 Resp 16 06/26/17 04:00 BP 157/70 06/26/17 04:00 Pulse Ox 94 L 06/26/17 04:00 Intake & Output 06/25/17 06/26/17 06/26/17 18:59 06:59 18:59 Intake Total 550.916 Output Total 1100 Balance 550.916 -1100 Weight 80.3 kg Intake: IV 160 0.9 160 Intake, IV Titration 30.916 Amount Insulin Regular 100 unit 30.916 In Sodium Chloride 0.9% 100 ml @ Titrate IV .Q0M [facility] Rx#:[id number] Oral 360 Output: Urine 1100 Other: Voiding Method Urinal Urinal # Voids 0 - Constitutional General appearance: Present: no acute distress - Respiratory Respiratory: bilateral: wheezing - Cardiovascular Rhythm: regular Heart sounds: normal: S1, S2 - Labs CBC & Chem 7: 06/25/17 06:19 06/25/17 06:19 Labs: Abnormal Lab Results - Last 24 Hours (Table) 06/25/17 06/25/17 06/25/17 Range/Units 06:19 10:25 11:57 PT (9.0-12.0) sec INR (<1.2) POC Glucose (mg/dL) 240 H 180 H (75-99) mg/dL Hemoglobin A1c 7.7 H (4.0-6.0) % 06/25/17 06/25/17 06/25/17 Range/Units 14:52 16:49 20:57 PT (9.0-12.0) sec INR (<1.2) POC Glucose (mg/dL) 154 H 139 H 444 H (75-99) mg/dL Hemoglobin A1c (4.0-6.0) % 06/25/17 06/25/17 06/26/17 Range/Units 21:50 23:14 05:36 PT 12.4 H (9.0-12.0) sec INR 1.3 H (<1.2) POC Glucose (mg/dL) 479 H 435 H (75-99) mg/dL Hemoglobin A1c (4.0-6.0) % 06/26/17 Range/Units 06:00 PT (9.0-12.0) sec INR (<1.2) POC Glucose (mg/dL) 238 H (75-99) mg/dL Hemoglobin A1c (4.0-6.0) % Microbiology - Last 24 Hours (Table) 06/22/17 12:58 Blood Culture - Preliminary Blood No Growth after 72 hours 06/24/17 20:28 Gram Stain - Preliminary Sputum Sputum Culture - Preliminary Assessment and Plan Assessment: Assessment #1 acute on chronic respiratory failure #2 pneumonia #3 significant history of smoking #4 peripheral arterial disease #5 hypertension #6 dyslipidemia Plan #1 the patient shortness of breath is more related to COPD exacerbation/ pneumonia more than congestive heart failure. #2 continue the oral diuretics #3 the patient can be discharged home.
[2017-06-26 11:20] LABS: Glucose,Whole Blood 334 mg/dL (75-99)
--- NOTE | 2017-06-26 15:42 | P.PN ---
Subjective Progress Note Date: 06/26/17 Principal diagnosis: Acute hypoxic respirator failure related to acute COPD exacerbation, hypertension and hypertensive cardiovascular disease, left upper lobe nodule, chronic pulmonary embolism 06/26/2017, patient seen eval examined during the rounds breathing is still difficult especially on activity and exertion however severity or wheezing slightly better and improved patient remains on antibiotics breathing treatments steroids also on Coumadin for chronic thromboembolism 06/25/2017, patient seen eval reexamined during the rounds clinically doing well awake and alert still have shortness of breath on activity and exertion does have cough patient has been tolerating antibiotics breathing treatments steroids fairly well along with oral Coumadin computed tomography scan of the chest has been reviewed extensive degree of bullous lung disease around the left upper lobe nodule is present making it a very high risk for CT guided lung biopsy and or or transbronchial bronchoscopic lung biopsy 06/24/2017, patient seen eval reexamined during the rounds he still short of breath is still of ongoing cough congestion but severity has improved patient remains on broad-spectrum antibiotics breathing treatment and steroids seems to be helping patient is on optimized medical therapy gently being diuresed him a care plan discussed with the son present at bedside, patient is off of heparin drip now on Coumadin 77-year-old male with extensive history of smoking and nicotine use his significant cardiovascular disease presented emergency department with progressive increased shortness of breath and cough and wheezing is started about a week to 10 days ago prior to that patient was presented at [facility] was advised admission where he is Due to worsening problem patient presented yesterday was found to have saturation of only 72%, workup and evaluation revealed right lower lobe infiltrate on chest x-ray as well as the left lower lobe pulmonary embolism on CT [facility] which is nonocclusive, in addition to that patient has left apical nodule which is 1.4 x 1.7 cm in size has somewhat groundglass attenuation, extensive emphysema and COPD-like changes were noted as well as Objective - Vital Signs Vital signs: Vital Signs Temp 97.0 F L 06/26/17 12:00 Pulse 60 06/26/17 15:27 Resp 18 06/26/17 12:00 BP 148/68 06/26/17 12:00 Pulse Ox 98 06/26/17 15:15 Intake & Output 06/25/17 06/26/17 06/26/17 18:59 06:59 18:59 Intake Total 550.916 480 Output Total 1100 975 Balance 550.916 -1100 -495 Weight 80.3 kg 97.4 kg Intake: IV 160 0.9 160 Intake, IV Titration 30.916 Amount Insulin Regular 100 unit 30.916 In Sodium Chloride 0.9% 100 ml @ Titrate IV .Q0M [facility] Rx#:[id number] Oral 360 480 Output: Urine 1100 975 Other: Voiding Method Urinal Urinal # Voids 0 1 - Exam Patient is lying in the bed comfortably, mild distress, awake alert and oriented.. Patient is hard of hearing and has hearing aid HEENT: Normocephalic. Neck is supple. Pupils reactive. Nostrils clear. Oral cavity is moist. Ears reveal no drainage. Neck reveals no JVD, carotid bruits, or thyromegaly. CHEST/LUNGS EXAMINATION: Trachea is central. Symmetrical expansion. Bilateral diffuse rhonchi and crackles and expiratory wheezing. CARDIAC: Normal S1, S2 with no gallops. No murmurs ABDOMEN: Soft. Bowel sounds normal. No organomegaly. No abdominal bruits. Extremities: reveal no edema. No clubbing or cyanosis Neurologically awake, alert, oriented x3 with well-coordinated movements. No focal deficits noted Skin: No rash or skin lesions. Psychiatric: Cooperative. Nonsuicidal Musculoskeletal: No joint swelling or deformity. Normal range of motion. - Labs CBC & Chem 7: 06/25/17 06:19 06/25/17 06:19 Labs: Abnormal Lab Results - Last 24 Hours (Table) 06/25/17 06/25/17 06/25/17 Range/Units 06:19 16:49 20:57 PT (9.0-12.0) sec INR (<1.2) POC Glucose (mg/dL) 139 H 444 H (75-99) mg/dL Hemoglobin A1c 7.7 H (4.0-6.0) % 06/25/17 06/25/17 06/26/17 Range/Units 21:50 23:14 05:36 PT 12.4 H (9.0-12.0) sec INR 1.3 H (<1.2) POC Glucose (mg/dL) 479 H 435 H (75-99) mg/dL Hemoglobin A1c (4.0-6.0) % 06/26/17 06/26/17 Range/Units 06:00 11:00 PT (9.0-12.0) sec INR (<1.2) POC Glucose (mg/dL) 238 H 334 H (75-99) mg/dL Hemoglobin A1c (4.0-6.0) % Microbiology - Last 24 Hours (Table) 06/22/17 12:58 Blood Culture - Preliminary Blood No Growth after 96 hours 06/24/17 20:28 Gram Stain - Preliminary Sputum Sputum Culture - Preliminary Assessment and Plan Assessment: Right lower lobe pneumonia Acute COPD exacerbation Left upper lobe 1.7 cm lung nodule Acute hypoxic restrictive failure related to above Baseline severe COPD emphysema Hypertension hypertensive cardiovascular disease Left lower lobe subsegmental pulmonary embolism probably old on Coumadin Diffuse coronary artery disease Peripheral arterial disease Dyslipidemia Extensive history of smoking and nicotine use Plan: IV gentle rehydration Broad-spectrum antibiotics Breathing treatments with B2 agonist and inhaled steroid IV steroids On Coumadin now Follow-up on sputum culture results and report Optimize cardiac therapy Further recommendations pending plan of care as per clinical response of the patient PET scan as outpatient and lung biopsy if patient and family is agreeable, and other option is for the vaginal resection of the left upper lobe nodule will make him more definitive decision after the PET scan these issues discussed with the family patient at length Time with Patient: Greater than 30
[2017-06-26 16:35] LABS: Glucose,Whole Blood 359 mg/dL (75-99)
[2017-06-26] MEDS: WARFARIN 5 MG TAB PO SCH (17:01)
[2017-06-26 18:10] LABS: Glucose,Whole Blood 414 mg/dL (75-99)
[2017-06-26] MEDS ORDERED: INSULIN REGULAR 100 UNIT in SODIUM CHLORIDE 0.9% 100 ML IV SCH (18:30)
[2017-06-26] MEDS: LEVOTHYROXINE 50 MCG TAB PO SCH (18:58)
[2017-06-26 20:29] LABS: Glucose,Whole Blood 348 mg/dL (75-99)
[2017-06-26] MEDS: ATORVASTATIN 40 MG TAB PO SCH (20:31)
[2017-06-26] MEDS ORDERED: INSULIN DETEMIR 100 UNIT/ML 10 ML VIAL SQ SCH (21:00)
[2017-06-27 02:28] LABS: Glucose,Whole Blood 171 mg/dL (75-99)
[2017-06-27 06:07] LABS: Glucose,Whole Blood 197 mg/dL (75-99)
[2017-06-27] MEDS: methylPREDNISolone SOD SUCCI 125 MG/2 ML VIAL IV SCH ×2 (06:39→12:31)
[2017-06-27] MEDS: INSULIN ASPART 100 UNIT/ML 1 ML 10 ML VIAL SQ SCH ×4 (06:40→12:33)
[2017-06-27 06:58] LABS: INR 2.1 (<1.2); Prothrombin Time 19.4 sec (9.0-12.0)
[2017-06-27 07:01] LABS: Anion Gap 9 mmol/L; Blood Urea Nitrogen 20 mg/dL (9-20); Calcium 8.5 mg/dL (8.4-10.2); Carbon Dioxide 33 mmol/L (22-30); Chloride 100 mmol/L (98-107); Glucose 184 mg/dL (74-99); Potassium 4.3 mmol/L (3.5-5.1); Sodium 142 mmol/L (137-145)
[2017-06-27 07:07] LABS: HCT 32.1 % (39.0-53.0); HGB 10.7 gm/dL (13.0-17.5); MCH 34.8 pg (25.0-35.0); MCHC 33.3 g/dL (31.0-37.0); MCV 104.6 fL (80.0-100.0); Macrocytosis Slight; Mean Platelet Volume 8.1; Platelet Count 506 k/uL (150-450); RBC 3.07 m/uL (4.30-5.90); RDW 13.6 % (11.5-15.5); WBC 11.4 k/uL (3.8-10.6)
[2017-06-27] MEDS ORDERED: INSULIN ASPART 100 UNIT/ML 1 ML 10 ML VIAL SQ SCH (07:30)
[2017-06-27] MEDS: ATENOLOL 25 MG TAB PO SCH (08:23)
[2017-06-27] MEDS: cefTRIAXone IN SWFI 1,000 MG/10 ML SYRINGE IVP SCH (08:23)
[2017-06-27] MEDS: amLODIPine 5 MG TAB PO SCH (08:23)
[2017-06-27] MEDS: DOXYCYCLINE 50 MG CAP PO SCH (08:24)
[2017-06-27] MEDS: CITALOPRAM HYDROBROMIDE 20 MG TAB PO SCH (08:24)
[2017-06-27] MEDS: CLOPIDOGREL 75 MG TAB PO SCH (08:24)
[2017-06-27] MEDS: oxyCODONE-APAP 7.5-325MG 1 EACH TAB PO PRN (08:25)
[2017-06-27] MEDS: LISINOPRIL 10 MG TAB PO SCH (08:25)
[2017-06-27] MEDS: FUROSEMIDE 20 MG TAB PO SCH (08:25)
[2017-06-27] MEDS: GABAPENTIN 300 MG CAP PO SCH ×2 (08:25→15:53)
[2017-06-27] MEDS: NICOTINE 21MG/24HR PATCH TRANSDERM SCH (08:26)
[2017-06-27] MEDS: ALPRAZolam 0.5 MG TAB PO PRN (08:26)
[2017-06-27] MEDS: BUDESONIDE 0.5 MG/2 ML NEBU INHALATION SCH (08:35)
[2017-06-27] MEDS: IPRATROPIUM-ALBUTEROL 3 ML NEB INHALATION SCH ×3 (08:35→15:21)
[2017-06-27 08:51] LABS: Band Neutrophils % 1 %; Lymphocytes # (M) 1.14 k/uL (1.0-4.8); Metamyelocytes # (M) 0.46 k/uL (0); Metamyelocytes % 4 %; Myelocytes # (M) 0.23 k/uL (0); Myelocytes % 2 %; Neutrophils % (M) 79 %; Nucleated Red Blood Cells 0 /100 WBC (0-0); Total Cells Counted 200; Toxic Granulation Present
[2017-06-27 08:52] LABS: Poikilocytosis (M) Present
[2017-06-27 12:05] LABS: Glucose,Whole Blood 230 mg/dL (75-99)
[2017-06-27 12:07] VITALS: RESP 16
--- NOTE | 2017-06-27 12:38 | P.PN ---
Subjective Progress Note Date: 06/27/17 This is a pleasant 77-year-old gentleman with history of peripheral arterial disease, COPD, hypertension, hyperlipidemia who follows with Dr. Palomino as an outpatient. He presented to the hospital with symptoms of difficulty in breathing. EKG showed a sinus rhythm with ST and T-wave abnormalities which were diffuse, cardiac enzymes came back to be unremarkable. X-ray showed cardiomegaly with infiltrate consistent with pneumonia. Follow-up with the patient today, his breathing is stable, he entire length of the hallway without any difficulty. Hemodynamically he is stable. Objective - Vital Signs Vital signs: Vital Signs Temp 98.2 F 06/27/17 08:00 Pulse 60 06/27/17 12:15 Resp 16 06/27/17 12:15 BP 149/66 06/27/17 08:00 Pulse Ox 98 06/27/17 08:00 Intake & Output 06/26/17 06/27/17 06/27/17 18:59 06:59 18:59 Intake Total 480 Output Total 975 850 Balance -495 -850 Weight 78.9 kg Intake: Oral 480 Output: Urine 975 850 Other: Voiding Method Urinal # Voids 1 1 - Exam PHYSICAL EXAMINATION: HEENT: Head is atraumatic, normocephalic. Pupils equal, round. Neck is supple. There is no elevated jugular venous pressure. HEART EXAMINATION: Heart S1, S2 normal. No murmur or gallop heard. CHEST EXAMINATION: Lungs reveal scattered wheezes bilaterally ABDOMEN: Soft, nontender. Bowel sounds are heard. No organomegaly noted. EXTREMITIES: 2+ peripheral pulses with no evidence of peripheral edema and no calf tenderness noted. NEUROLOGIC patient is awake, alert and oriented -3. . - Labs CBC & Chem 7: 06/27/17 06:09 06/27/17 06:09 Labs: Abnormal Lab Results - Last 24 Hours (Table) 06/26/17 06/26/17 06/26/17 Range/Units 16:32 18:08 20:20 WBC (3.8-10.6) k/uL RBC (4.30-5.90) m/uL Hgb (13.0-17.5) gm/dL Hct (39.0-53.0) % MCV (80.0-100.0) fL Plt Count (150-450) k/uL Neutrophils # (Manual) (1.3-7.7) k/uL Metamyelocytes # (Man) (0) k/uL Myelocytes # (Manual) (0) k/uL PT (9.0-12.0) sec INR (<1.2) Carbon Dioxide (22-30) mmol/L Creatinine (0.66-1.25) mg/dL Glucose (74-99) mg/dL POC Glucose (mg/dL) 359 H 414 H 348 H (75-99) mg/dL 06/27/17 06/27/17 06/27/17 Range/Units 02:26 06:01 06:09 WBC (3.8-10.6) k/uL RBC (4.30-5.90) m/uL Hgb (13.0-17.5) gm/dL Hct (39.0-53.0) % MCV (80.0-100.0) fL Plt Count (150-450) k/uL Neutrophils # (Manual) (1.3-7.7) k/uL Metamyelocytes # (Man) (0) k/uL Myelocytes # (Manual) (0) k/uL PT 19.4 H (9.0-12.0) sec INR 2.1 H (<1.2) Carbon Dioxide (22-30) mmol/L Creatinine (0.66-1.25) mg/dL Glucose (74-99) mg/dL POC Glucose (mg/dL) 171 H 197 H (75-99) mg/dL 06/27/17 06/27/17 06/27/17 Range/Units 06:09 06:09 11:59 WBC 11.4 H (3.8-10.6) k/uL RBC 3.07 L (4.30-5.90) m/uL Hgb 10.7 L (13.0-17.5) gm/dL Hct 32.1 L (39.0-53.0) % MCV 104.6 H (80.0-100.0) fL Plt Count 506 H (150-450) k/uL Neutrophils # (Manual) 9.10 H (1.3-7.7) k/uL Metamyelocytes # (Man) 0.46 H (0) k/uL Myelocytes # (Manual) 0.23 H (0) k/uL PT (9.0-12.0) sec INR (<1.2) Carbon Dioxide 33 H (22-30) mmol/L Creatinine 0.60 L (0.66-1.25) mg/dL Glucose 184 H (74-99) mg/dL POC Glucose (mg/dL) 230 H (75-99) mg/dL Microbiology - Last 24 Hours (Table) 06/24/17 20:28 Gram Stain - Final Sputum Sputum Culture - Final 06/22/17 12:58 Blood Culture - Preliminary Blood No Growth after 96 hours Assessment and Plan Plan: Assessment and plan #1 acute on chronic respiratory failure likely secondary to pneumonia and COPD #2 nicotine dependence #3 PAD #4 hypertension # 5 hyperlipidemia Plan Cardiology's perspective, patient may be able to be discharged home once cleared by the primary. We will make him a follow-up appointment to see Dr. Palomino in the office post discharge. DNP note has been reviewed, I agree with a documented findings and plan of care. Patient was seen and examined.
[2017-06-27 13:16] VITALS: BP 138/64; TEMP 98
[2017-06-27 15:31] VITALS: PULSE 68
[2017-06-27] MEDS: WARFARIN 5 MG TAB PO SCH (15:53)
--- NOTE | 2017-06-27 16:17 | P.DS ---
Providers Date of admission: 06/22/17 16:54 Expected date of discharge: 06/27/17 Attending physician: Travis Xiong Consults: 06/22/17 16:54 Consult Physician Stat Consulting Provider: Humble Regan Consult Reason/Comments: Severe COPD Do you want consulting provider notified?: Yes Consult Physician Urgent Consulting Provider: Blair Quigley Consult Reason/Comments: Coronary artery disease, dyspnea Do you want consulting provider notified?: Yes Primary care physician: [facility] Course: Patient is a 77-year-old male with a known history of hypertension, diabetes type 2, coronary artery disease history of coronary artery bypass graft, degenerative joint disease and COPD, not on home oxygen came to ER with complaints of shortness of breath for the past 7 days. Patient was also having subjective fevers and chills and shakes. Patient was seen at [facility] recently and wants to admit him but patient disagreed. Patient has been having worsening shortness of breath and chest pain with deep breathing. Otherwise patient denied any nausea vomiting or abdominal pain. No dysuria or hematuria. Patient is hard of hearing and is also poor historian. Patient's is at bedside. Denied any headache or dizziness or lightheadedness. Pulse ox was 72 % on admission. Patient is also complaining of right foot swelling about one day ago which has resolved now. Patient continues smoke 1 pack per day D-dimer 0.77 Troponin 0.040 Chest x-ray showed new right lower lobe opacity CT angiogram of the chest showed age indeterminate segmental and subsegmental nonocclusive left lower lobe pulmonary emboli Central lobar pulmonary emphysema. Multifocal pneumonia. Hiatal hernia. Patient did show marked improvement with above treatment; he was started on IV heparin and then transitioned to oral Coumadin; INR remained stable; patient steroids and antibiotics were also switched to oral Patient Condition at Discharge: Fair Plan - Discharge Summary Discharge Rx Participant: No New Discharge Prescriptions: New Atorvastatin [Lipitor] 40 mg PO HS #30 tab Warfarin [Coumadin] 5 mg PO DAILY@1800 #30 tab Doxycycline Monohydrate [Monodox] 100 mg PO Q12HR 7 Days #14 cap predniSONE See Taper PO DIRECTED #10 tab NS Continue Furosemide [Lasix] 20 mg PO BID Citalopram Hydrobromide [CeleXA] 20 mg PO BID Cilostazol [Pletal] 50 mg PO BID ALPRAZolam [Xanax] 1 tab PO Q8H Clopidogrel Bisulfate [Plavix] 75 mg PO DAILY Zolpidem [Ambien] 5 mg PO HS Lisinopril [Zestril] 10 mg PO DAILY Gabapentin [Neurontin] 600 mg PO TID amLODIPine BESYLATE [Norvasc] 5 mg PO BID Atenolol [Tenormin] 25 mg PO BID oxyCODONE-APAP 7.5-325MG [Percocet 7.5-325 mg] 1 tab PO TID Aspirin EC [Ecotrin Low Dose] 81 mg PO DAILY Levothyroxine Sodium [Synthroid] 50 mcg PO Q72H Insulin Lispro [humaLOG Kwikpen] See Protocol SQ 5XD Insulin Glargine,Hum.rec.anlog [Basaglar Kwikpen U-100] See Protocol SQ HS Insulin Glargine,Hum.rec.anlog [Basaglar Kwikpen U-100] 15 unit SQ HS Doxycycline Hyclate [Vibramycin] 100 mg PO BID Discharge Medication List ALPRAZolam [Xanax] 1 tab PO Q8H 05/12/15 [History] Atenolol [Tenormin] 25 mg PO BID 05/12/15 [History] Cilostazol [Pletal] 50 mg PO BID 05/12/15 [History] Citalopram Hydrobromide [CeleXA] 20 mg PO BID 05/12/15 [History] Clopidogrel Bisulfate [Plavix] 75 mg PO DAILY 05/12/15 [History] Furosemide [Lasix] 20 mg PO BID 05/12/15 [History] Gabapentin [Neurontin] 600 mg PO TID 05/12/15 [History] Lisinopril [Zestril] 10 mg PO DAILY 05/12/15 [History] Zolpidem [Ambien] 5 mg PO HS 05/12/15 [History] amLODIPine BESYLATE [Norvasc] 5 mg PO BID 05/12/15 [History] Aspirin EC [Ecotrin Low Dose] 81 mg PO DAILY 06/22/17 [History] Doxycycline Hyclate [Vibramycin] 100 mg PO BID 06/22/17 [History] Insulin Glargine,Hum.rec.anlog [Basaglar Kwikpen U-100] 15 unit SQ HS 06/22/17 [ History] Insulin Glargine,Hum.rec.anlog [Basaglar Kwikpen U-100] See Protocol SQ HS 06/22 [History] Insulin Lispro [humaLOG Kwikpen] See Protocol SQ 5XD 06/22/17 [History] Levothyroxine Sodium [Synthroid] 50 mcg PO Q72H 06/22/17 [History] oxyCODONE-APAP 7.5-325MG [Percocet 7.5-325 mg] 1 tab PO TID 06/22/17 [History] Atorvastatin [Lipitor] 40 mg PO HS #30 tab 06/27/17 [Rx] Doxycycline Monohydrate [Monodox] 100 mg PO Q12HR 7 Days #14 cap 06/27/17 [Rx] Warfarin [Coumadin] 5 mg PO DAILY@1800 #30 tab 06/27/17 [Rx] predniSONE See Taper PO DIRECTED #10 tab NS 06/27/17 [Rx] Follow up Appointment(s)/Referral(s): Boaz Conner DO [Primary Care Provider] - 1-2 days Humble Regan MD [STAFF PHYSICIAN] - 1 Week Activity/Diet/Wound Care/Special Instructions: Pts copay for Eliquis is $549/month and Xarelto is $755/month Discharge Disposition: HOME SELF-CARE
--- NOTE | 2017-06-28 13:31 | ECHOF ---
Referral Reason:sob MEASUREMENTS -------- HEIGHT: 182.9 cm WEIGHT: 80.3 kg BP: 173/97 IVSd: 1.3 cm (0.6 - 1.1) LVIDd: 4.4 cm (3.9 - 5.3) LVPWd: 1.2 cm (0.6 - 1.1) IVSs: 1.8 cm LVIDs: 3.1 cm LVPWs: 1.8 cm LA Diam: 4.0 cm (2.7 - 3.8) RVIDd: 4.0 cm (< 3.3) LAESV Index (A-L): 35.12 ml/m Ao Diam: 3.6 cm (2.0 - 3.7) AV Cusp: 2.3 cm (1.5 - 2.6) EPSS: 1.0 cm MV E Vincent: 1.33 m/s MV DecT: 247 ms MV A Vincent: 0.52 m/s MV E/A Ratio: 2.53 AR PHT: 678 ms RAP: 15.00 mmHg RVSP: 48.86 mmHg MV EF SLOPE: 55.36 mm/s (70 - 150) MV EXCURSION: 14.23 mm (> 18.000) FINDINGS -------- Sinus rhythm. This was a technically good study. The left ventricular size is normal. There is mild concentric left ventricular hypertrophy. Overa ll left ventricular systolic function is normal with, an EF between 55 - 60 %. The right ventricle is moderately enlarged. LA is moderately dilated 34-39 ml/m2 The right atrium is normal in size. Possible ASD Aortic valve is trileaflet and is mildly thickened. There is mild aortic regurgitation. Mild mitral regurgitation is present. Nlzf-[id number] tricuspid regurgitation present. There is moderate pulmonary hypertension. The r ight ventricular systolic pressure, as measured by Doppler, is 48.86mmHg. Moderate pulmonic regurgitation. The aortic root size is normal. The inferior vena cava is dilated with poor inspiratory collapse which is consistent with estimated r ight atrial pressure of 20 mmHg. There is no pericardial effusion. CONCLUSIONS -------- 1. Sinus rhythm. 2. This was a technically good study. 3. The left ventricular size is normal. 4. There is mild concentric left ventricular hypertrophy. 5. Overall left ventricular systolic function is normal with, an EF between 55 - 60 %. 6. The right ventricle is moderately enlarged. 7. LA is moderately dilated 34-39 ml/m2 8. The right atrium is normal in size. 9. Possible ASD 10. Aortic valve is trileaflet and is mildly thickened. 11. There is mild aortic regurgitation. 12. Mild mitral regurgitation is present. 13. Vane-ke-qugahbqo tricuspid regurgitation present. 14. There is moderate pulmonary hypertension. 15. The right ventricular systolic pressure, as measured by Doppler, is 48.86mmHg. 16. Moderate pulmonic regurgitation. 17. The aortic root size is normal. 18. The inferior vena cava is dilated with poor inspiratory collapse which is consistent with estimat ed right atrial pressure of 20 mmHg. 19. There is no pericardial effusion. HAND SPRAYER: Astrid Pineda RDCS
--- NOTE | 2017-06-29 11:46 | CDI ---
Last Revision, February 2017 Documentation Clarification Form Date: 06/29/17 From: Kathy Stevan Sarah Lindquist, Media Analytics Manager between 8:30 am & 5 pm MUrbanF Admit Date: 06/22/2017 4:54:00 PM Patient Name: Marlo Saleh Visit Number: [id number] Discharge Date: 06/27/17 ATTENTION: The Clinical Documentation Specialists (CDI) and [facility] Coding Staff appreciate your assistance in clarifying documentation. Please respond to the clarification below the line at the bottom and electronically sign. The CDI & [facility] Coding staff will review the response and follow-up if needed. Please note: Queries are made part of the Legal Health Record. If you have any questions, please contact the author of this message via ITS. Dr. Carlos A Espinoza Patient presents with acute on chronic hypoxic respiratory failure. Per your consult felt that the patient wasn't in CHF. Echo revealed normal systolic function with an EF between 55-60%. He takes Lasix 20mg PO bid, and received one dose of IV Lasix 40 mg on the 06/24. No BNP done. CXR 06/22: New right lower lobe vague opacity that may represent confluence of engorged pulmonary vasculature or early developing pneumonia. In your professional opinion, can you please clarify the acuity and type of CHF if known? Type Systolic Heart Failure Diastolic Heart Failure Systolic & Diastolic Heart Failure Acuity Acute Chronic Acute on Chronic Heart Failure Unable to Determine Other, please specify Acute diastolic heart failure Please continue to document in your progress notes and discharge summary in order to capture severity of illness and risk of mortality. Include clinical findings that support your diagnosis. MTDD
== END 2017-06-27 17:49 | disposition home or self-care (01) | DRG 193 ==
LOC: EC 12:22 → 6SEL 16:54
PROVIDERS: ADMIT Hospitalist; ATTEND Hospitalist
DX: J18.9 Pneumonia, unspecified organism (principal); J96.21 Acute and chronic respiratory failure with hypoxia; I50.31 Acute diastolic (congestive) heart failure; I27.82 Chronic pulmonary embolism; E11.51 Type 2 diabetes mellitus with diabetic peripheral angiopathy without gangrene; E11.65 Type 2 diabetes mellitus with hyperglycemia; I11.9 Hypertensive heart disease without heart failure; J43.9 Emphysema, unspecified; F17.210 Nicotine dependence, cigarettes, uncomplicated; F32.9 Major depressive disorder, single episode, unspecified; I25.10 Atherosclerotic heart disease of native coronary artery without angina pectoris; K44.9 Diaphragmatic hernia without obstruction or gangrene; H91.90 Unspecified hearing loss, unspecified ear; E03.9 Hypothyroidism, unspecified; E78.5 Hyperlipidemia, unspecified; F41.9 Anxiety disorder, unspecified; G47.00 Insomnia, unspecified; R91.1 Solitary pulmonary nodule; M19.91 Primary osteoarthritis, unspecified site; M48.00 Spinal stenosis, site unspecified; T38.0X5A Adverse effect of glucocorticoids and synthetic analogues, initial encounter; I25.2 Old myocardial infarction; R74.8 Abnormal levels of other serum enzymes; Z79.02 Long term (current) use of antithrombotics/antiplatelets; Z79.82 Long term (current) use of aspirin; Z79.890 Hormone replacement therapy; Z79.4 Long term (current) use of insulin; Z79.891 Long term (current) use of opiate analgesic; Z79.899 Other long term (current) drug therapy; Z71.6 Tobacco abuse counseling; Z95.1 Presence of aortocoronary bypass graft; Z95.5 Presence of coronary angioplasty implant and graft; Z95.828 Presence of other vascular implants and grafts
CPT/HCPCS: 36415; 71046; 71275; 80048; 80053; 80061; 81003; 82550; 82553; 83036; 83605; 84484; 85025; 85379; 85610; 85730; 87040; 87070; 87086; 87205; 93005; 93306; 94640; 94644; 94760; 96361; 96365; 96366; 96375; 96376; 99291

== ENCOUNTER → 2017-07-17 | Outpatient (CLI) | payer MEDICARE, BC ==
--- NOTE | 2017-07-18 15:41 | PE ---
EXAMINATION TYPE: PET CT fusion skull to thigh DATE OF EXAM: 07/17/2017 CLINICAL HISTORY: 77-year-old male initially staging solitary pulmonary nodule. TECHNIQUE: Following the intravenous administration of 10.2 mCi of F-18 FDG, whole body images are performed from the skull base to the midthigh. Images are reviewed on the computer in the coronal, a xial, and sagittal planes. Reconstructed rotating images are created on independent workstation and reviewed on the computer. A localization and attenuation correction CT is performed in conjunction with the PET scan. Glucose level: 182 mg/dL CTDI: 3.88 mGy DLP: 345.65 mGy-cm COMPARISON: 06/26/2012 and 06/22/2017 FINDINGS: PET: Physiologic FDG uptake within the neck. A 7 mm right upper lobe pulmonary nodule axial image 77 is just at the threshold for adequate PET nicholas racterization but shows no discrete FDG uptake and was present back on 06/26/2012. A 1.8 cm related left apical pulmonary nodule showed only patchy groundglass on 06/26/2012. Max SUV 3.4 which is suspicious for a nodule of this size. Heterogeneous liver uptake likely normal variation. Average liver SUV is 2.8. Otherwise, physiologic FDG uptake within the abdomen and pelvis. Variable mild degenerative disc FDG uptake throughout the spine. Variable mild to moderate uptake at the left hip seems to relate to combination of heterotopic ossification anteriorly and gluteal insertional tendinosis. ATTENUATION CORRECTION CT: Visualized paranasal sinuses are clear. Post resection changes involving the left mastoid process. Rightward nasal septal deviation. No cervical lymphadenopathy. Median sternotomy wires are present with post-CABG changes. Heart upper limits of normal in size with out pericardial effusion. Aorta normal caliber with conventional arch was a branching anatomy and mild atherosclerotic calcifications . Large caliber to the main radial pulmonary arteries at 2.9 and 2.8 cm, respectively, suggesting underlying pulmonary arterial hypertension. Scattered nonenlarged mediastinal lymph nodes are present. Patchy peribronchovascular groundglass is noted in the mid and lower lungs. The overall opacities hav e improved from 06/22/2017. There is biapical pleural-parenchymal scarring and moderate emphysema. No p leural effusion. Normal variant azygos fissure. Tiny hiatal hernia. There is an endovascular abdominal aortic stent graft present distending from the level of the celiac axis. Infrarenal nenana sac size is 4.9 cm versus 5.3 cm preprocedural on 03/10/2016. Moderate stool burden. No mesent ana or retroperitoneal lymphadenopathy. Bladder is urine distended. Prostate gland prominent degenerative 5.2 cm wide. No abnormal fluid shade ection in the pelvis or pelvic lymphadenopathy seen. There is some scarring in the bilateral inguinal regions. Bones: Mild degenerative changes at the hips. Moderate degenerative changes SI joints. Endplate spond ylosis throughout the visualized spine and cervical spondylosis. No osseous destructive process seen. IMPRESSION: 1. The spiculated 1.8 cm left apical pulmonary nodule shows borderline moderate hypermetabolism and i s suspicious for lung cancer. 2. No evidence for metastatic disease. 3. A 7 mm right upper lobe pulmonary nodule shows no discrete FDG uptake and was present back in 2012 suggesting a benign etiology. 4. COPD with moderate emphysema and pulmonary arterial hypertension. 5. Some patchy peribronchovascular groundglass in the mid to lower lungs is improving from 06/22/2017. Correlate for possible causes such as improving pneumonia or inters titial pneumonitis. 6. Aortobiiliac endovascular stent graft. [place] sac measures 4.9 cm versus 5.3 cm on the preprocedur al exam of 03/10/2016.
== END ==
LOC: RADPETMAIN 12:36
PROVIDERS: ATTEND Internal Medicine Sleep Medicine
DX: R91.1 Solitary pulmonary nodule (principal); J43.9 Emphysema, unspecified; R91.8 Other nonspecific abnormal finding of lung field; I27.21 Secondary pulmonary arterial hypertension; Z95.828 Presence of other vascular implants and grafts
CPT/HCPCS: 78815; A9552

== ENCOUNTER 2017-08-10 20:19 | Emergency (ER) | payer MEDICARE, BC ==
[2017-08-10 21:38] LABS: HCT 35.4 % (39.0-53.0); HGB 11.4 gm/dL (13.0-17.5); MCH 34.6 pg (25.0-35.0); MCHC 32.1 g/dL (31.0-37.0); MCV 107.6 fL (80.0-100.0); Macrocytosis Marked; Mean Platelet Volume 7.2; Platelet Count 490 k/uL (150-450); RBC 3.29 m/uL (4.30-5.90); RDW 15.5 % (11.5-15.5); WBC 6.9 k/uL (3.8-10.6)
[2017-08-10 21:39] LABS: ALT 32 U/L (21-72); AST 67 U/L (17-59); Albumin 3.9 g/dL (3.5-5.0); Alkaline Phosphatase 81 U/L (38-126); Anion Gap 9 mmol/L; Blood Urea Nitrogen 17 mg/dL (9-20); Calcium 9.1 mg/dL (8.4-10.2); Carbon Dioxide 30 mmol/L (22-30); Chloride 100 mmol/L (98-107); Glucose 256 mg/dL (74-99); Potassium 4.3 mmol/L (3.5-5.1); Sodium 139 mmol/L (137-145); Total Bilirubin 0.4 mg/dL (0.2-1.3); Total Protein 6.3 g/dL (6.3-8.2)
[2017-08-10 21:40] LABS: Partial Thromboplastin Time 44.4 sec (22.0-30.0); Prothrombin Time 95.6 sec (9.0-12.0)
--- NOTE | 2017-08-10 21:40 | ED ---
General Adult HPI - General Chief complaint: Recheck/Abnormal Lab/Rx Stated complaint: blood is thin-sent by [facility] Time Seen by Provider: 08/10/17 21:19 Source: patient, RN notes reviewed, old records reviewed Mode of arrival: wheelchair Limitations: no limitations - History of Present Illness Initial comments: 77-year-old male presenting for evaluation of elevated INR. He was called by his sprinkler helper who urged him to present to the emergency department. He had INR greater than 8. Patient denies any symptoms. Denies chest pain or shortness of breath. Denies bleeding of the gums, denies hematuria or rectal bleeding. Denies abdominal pain. Patient is currently on Coumadin secondary to pulmonary embolism. He is also on aspirin and Plavix with history of CAD status post stenting and CVA in the past. Patient has no complaints at the time my evaluation. - Related Data Home Medications Medication Instructions Recorded Confirmed ALPRAZolam [Xanax] 1 tab PO Q8H 05/12/15 08/10/17 Atenolol [Tenormin] 25 mg PO BID 05/12/15 08/10/17 Cilostazol [Pletal] 50 mg PO BID 05/12/15 08/10/17 Citalopram Hydrobromide [CeleXA] 20 mg PO BID 05/12/15 08/10/17 Clopidogrel Bisulfate [Plavix] 75 mg PO DAILY 05/12/15 08/10/17 Furosemide [Lasix] 20 mg PO BID 05/12/15 08/10/17 Gabapentin [Neurontin] 600 mg PO TID 05/12/15 08/10/17 Lisinopril [Zestril] 10 mg PO DAILY 05/12/15 08/10/17 Zolpidem [Ambien] 5 mg PO HS 05/12/15 08/10/17 amLODIPine BESYLATE [Norvasc] 5 mg PO BID 05/12/15 08/10/17 Aspirin EC [Ecotrin Low Dose] 81 mg PO DAILY 06/22/17 08/10/17 Insulin Glargine,Hum.rec.anlog 15 unit SQ HS 06/22/17 08/10/17 [Jean [place] Martinezpen U-100] Insulin Glargine,Hum.rec.anlog See Protocol SQ HS 06/22/17 08/10/17 [Basaglar Kwikpen U-100] Insulin Lispro [humaLOG Kwikpen] See Protocol SQ 5XD 06/22/17 08/10/17 Levothyroxine Sodium [Synthroid] 50 mcg PO Q72H 06/22/17 08/10/17 oxyCODONE-APAP 7.5-325MG [Percocet 1 tab PO TID 06/22/17 08/10/17 7.5-325 mg] Warfarin [Coumadin] 2.5 mg PO THSA 08/10/17 08/10/17 Warfarin [Coumadin] 5 mg PO SUMOTUWEFR 08/10/17 08/10/17 Previous Rx's Medication Instructions Recorded Atorvastatin [Lipitor] 40 mg PO HS #30 tab 06/27/17 Allergies Allergy/AdvReac Type Severity Reaction Status Date / Time STATINS AdvReac MUSCLE Uncoded 08/10/17 21:41 WEAKNESS Review of Systems ROS Statement: Those systems with pertinent positive or pertinent negative responses have been documented in the HPI. ROS Other: All systems not noted in ROS Statement are negative. Past Medical History Past Medical History: Diabetes Mellitus, Hypertension, Myocardial Infarction (SC ) Additional Past Medical History / Comment(s): spinal stenosis, arthritis Last Myocardial Infarction Date:: unknown History of Any Multi-Drug Resistant Organisms: None Reported Past Surgical History: Coronary Bypass/CABG, Heart Catheterization With Stent, Orthopedic Surgery Additional Past Surgical History / Comment(s): pt. states he has stents in his legs and an aneurysm repair Past Anesthesia/Blood Transfusion Reactions: No Reported Reaction Date of Last Stent Placement:: unknown Past Psychological History: Depression Smoking Status: Current every day smoker Past Alcohol Use History: None Reported Past Drug Use History: None Reported General Exam Limitations: no limitations General appearance: alert, in no apparent distress Head exam: Present: atraumatic, normocephalic Eye exam: Present: normal appearance, PERRL, EOMI ENT exam: Present: normal exam Neck exam: Present: normal inspection, tenderness Respiratory exam: Present: normal lung sounds bilaterally. Absent: respiratory distress, wheezes Cardiovascular Exam: Present: regular rate, normal rhythm GI/Abdominal exam: Present: soft. Absent: distended, tenderness Extremities exam: Present: normal inspection, full ROM Back exam: Present: normal inspection, full ROM Neurological exam: Present: alert, oriented X3, CN II-XII intact. Absent: motor sensory deficit Psychiatric exam: Present: normal affect, normal mood Skin exam: Present: warm, dry, intact. Absent: cyanosis, diaphoretic Course Vital Signs 08/10/17 08/10/17 20:35 22:40 Temperature 98.6 F 98.4 F Pulse Rate 63 68 Respiratory 16 18 Rate Blood Pressure 191/91 152/69 O2 Sat by Pulse 96 95 Oximetry - Reevaluation(s) Reevaluation #1: 08/10/17 23:45 Patient does have a bowel movement while in the emergency department and there is no blood. Medical Decision Making - Medical Decision Making 77-year-old male presenting for evaluation of elevated INR. He is on Coumadin for history of pulmonary embolism. Laboratory studies are obtained, normal white blood cell count, hemoglobin is 11.4 which is improved from previous at 10.7. CMP is unremarkable. INR is greater than 10. Patient has no signs of bleeding. His Coumadin will be held. He will monitor for bleeding externally and in his urine and feces. He is given vitamin K in the emergency department. He will also hold one day of aspirin and Plavix and hold his Coumadin until his INR is rechecked. He will call for an appointment in the morning. - Lab Data Result diagrams: 08/10/17 21:15 08/10/17 21:15 Lab Results 08/10/17 08/10/17 08/10/17 Range/Units 21:15 21:15 21:15 WBC 6.9 (3.8-10.6) k/uL RBC 3.29 L (4.30-5.90) m/uL Hgb 11.4 L (13.0-17.5) gm/dL Hct 35.4 L (39.0-53.0) % MCV 107.6 H (80.0-100.0) fL MCH 34.6 (25.0-35.0) pg MCHC 32.1 (31.0-37.0) g/dL RDW 15.5 (11.5-15.5) % Plt Count 490 H (150-450) k/uL Neutrophils % (Manual) 41 % Lymphocytes % (Manual) 42 % Monocytes % (Manual) 9 % Eosinophils % (Manual) 5 % Metamyelocytes % 4 % Myelocytes % 1 % Neutrophils # (Manual) 2.83 (1.3-7.7) k/uL Lymphocytes # (Manual) 2.90 (1.0-4.8) k/uL Monocytes # (Manual) 0.62 (0-1.0) k/uL Eosinophils # (Manual) 0.35 (0-0.7) k/uL Metamyelocytes # (Man) 0.28 H (0) k/uL Myelocytes # (Manual) 0.07 H (0) k/uL Nucleated RBCs 0 (0-0) /100 WBC Polychromasia Present Macrocytosis Marked Ovalocytes Present PT (9.0-12.0) sec INR (<1.2) APTT (22.0-30.0) sec Sodium 139 (137-145) mmol/L Potassium 4.3 (3.5-5.1) mmol/L Chloride 100 (98-107) mmol/L Carbon Dioxide 30 (22-30) mmol/L Anion Gap 9 mmol/L BUN 17 (9-20) mg/dL Creatinine 0.62 L (0.66-1.25) mg/dL Est GFR (CKD-EPI)AfAm >90 (>60 ml/min/1.73 sqM) Est GFR (CKD-EPI)NonAf >90 (>60 ml/min/1.73 sqM) Glucose 256 H (74-99) mg/dL Calcium 9.1 (8.4-10.2) mg/dL Total Bilirubin 0.4 (0.2-1.3) mg/dL AST 67 H (17-59) U/L ALT 32 (21-72) U/L Alkaline Phosphatase 81 (38-126) U/L Total Creatine Kinase 47 L (55-170) U/L CK-MB (CK-2) 0.8 (0.0-2.4) ng/mL CK-MB (CK-2) Rel Index 1.7 Troponin I <0.012 (0.000-0.034) ng/mL Total Protein 6.3 (6.3-8.2) g/dL Albumin 3.9 (3.5-5.0) g/dL 08/10/17 Range/Units 21:15 WBC (3.8-10.6) k/uL RBC (4.30-5.90) m/uL Hgb (13.0-17.5) gm/dL Hct (39.0-53.0) % MCV (80.0-100.0) fL MCH (25.0-35.0) pg MCHC (31.0-37.0) g/dL RDW (11.5-15.5) % Plt Count (150-450) k/uL Neutrophils % (Manual) % Lymphocytes % (Manual) % Monocytes % (Manual) % Eosinophils % (Manual) % Metamyelocytes % % Myelocytes % % Neutrophils # (Manual) (1.3-7.7) k/uL Lymphocytes # (Manual) (1.0-4.8) k/uL Monocytes # (Manual) (0-1.0) k/uL Eosinophils # (Manual) (0-0.7) k/uL Metamyelocytes # (Man) (0) k/uL Myelocytes # (Manual) (0) k/uL Nucleated RBCs (0-0) /100 WBC Polychromasia Macrocytosis Ovalocytes PT 95.6 H (9.0-12.0) sec INR >10.0 H* (<1.2) APTT 44.4 H (22.0-30.0) sec Sodium (137-145) mmol/L Potassium (3.5-5.1) mmol/L Chloride (98-107) mmol/L Carbon Dioxide (22-30) mmol/L Anion Gap mmol/L BUN (9-20) mg/dL Creatinine (0.66-1.25) mg/dL Est GFR (CKD-EPI)AfAm (>60 ml/min/1.73 sqM) Est GFR (CKD-EPI)NonAf (>60 ml/min/1.73 sqM) Glucose (74-99) mg/dL Calcium (8.4-10.2) mg/dL Total Bilirubin (0.2-1.3) mg/dL AST (17-59) U/L ALT (21-72) U/L Alkaline Phosphatase (38-126) U/L Total Creatine Kinase (55-170) U/L CK-MB (CK-2) (0.0-2.4) ng/mL CK-MB (CK-2) Rel Index Troponin I (0.000-0.034) ng/mL Total Protein (6.3-8.2) g/dL Albumin (3.5-5.0) g/dL Disposition Clinical Impression: Supratherapeutic INR Disposition: HOME SELF-CARE Condition: Fair Instructions: Elevated INR (ED) Is patient prescribed a controlled substance at d/c from ED?: No Referrals: Boaz Conner DO [Primary Care Provider] - 1-2 days Edilberto Ray MD [STAFF PHYSICIAN] - 1-2 days Time of Disposition: 22:45
[2017-08-10 21:47] LABS: INR >10.0 (<1.2)
[2017-08-10 21:50] LABS: Creatine Kinase 47 U/L (55-170)
[2017-08-10 21:59] LABS: Eosinophils # (M) 0.35 k/uL (0-0.7); Metamyelocytes # (M) 0.28 k/uL (0); Metamyelocytes % 4 %; Monocytes # (M) 0.62 k/uL (0-1.0); Myelocytes # (M) 0.07 k/uL (0); Myelocytes % 1 %; Neutrophils # (M) 2.83 k/uL (1.3-7.7); Neutrophils % (M) 41 %; Nucleated Red Blood Cells 0 /100 WBC (0-0); Polychromasia Present; Total Cells Counted 200
[2017-08-10 22:00] LABS: Ovalocytes Present
[2017-08-10 22:02] LABS: Creatine Kinase MB 0.8 ng/mL (0.0-2.4); Troponin I <0.012 ng/mL (0.000-0.034)
[2017-08-10] MEDS ORDERED: PHYTONADIONE 5 MG in SODIUM CHLORIDE 0.9% 50 ML IVPB STA (22:19)
[2017-08-10] MEDS ORDERED: PHYTONADIONE ORAL 5 MG/5 ML ORAL.SYRG PO STA (22:26)
[2017-08-10 23:09] VITALS: RESP 18
[2017-08-11 00:20] VITALS: BP 171/78; PULSE 85; TEMP 98
== END 2017-08-11 00:20 | disposition home or self-care (01) ==
LOC: EC 20:19
DX: R79.1 Abnormal coagulation profile (principal); E11.9 Type 2 diabetes mellitus without complications; I10 Essential (primary) hypertension; I25.2 Old myocardial infarction; F32.9 Major depressive disorder, single episode, unspecified; F17.200 Nicotine dependence, unspecified, uncomplicated; Z86.73 Personal history of transient ischemic attack (TIA), and cerebral infarction without residual deficits; I25.10 Atherosclerotic heart disease of native coronary artery without angina pectoris; Z86.711 Personal history of pulmonary embolism; Z79.4 Long term (current) use of insulin; Z79.82 Long term (current) use of aspirin; Z79.01 Long term (current) use of anticoagulants; Z79.02 Long term (current) use of antithrombotics/antiplatelets; Z79.899 Other long term (current) drug therapy; Z88.8 Allergy status to other drugs, medicaments and biological substances; Z95.1 Presence of aortocoronary bypass graft; Z95.5 Presence of coronary angioplasty implant and graft
CPT/HCPCS: 36415; 80053; 82550; 82553; 84484; 85025; 85610; 85730; 93005; 99284

== ENCOUNTER 2018-05-19 17:47 | Inpatient (IN) | payer MEDICARE, BC ==
[2018-05-19] MEDS ORDERED: NICOTINE 21MG/24HR PATCH TRANSDERM STA (18:03)
[2018-05-19] MEDS ORDERED: NITROGLYCERIN SL TABS 0.4 MG TAB SUBLINGUAL PRN (18:09)
[2018-05-19] MEDS ORDERED: ASPIRIN 81 MG PO STA (18:09)
[2018-05-19] MEDS ORDERED: HEPARIN SODIUM,PORCINE 5,000 UNIT/ML 1 ML VIAL IV PRN (18:09)
[2018-05-19] MEDS ORDERED: HEPARIN SOD,PORK IN 0.45% NACL 25,000 UNIT in 0.45% NACL 1 250ML.BAG IV SCH (18:15)
[2018-05-19] MEDS ORDERED: IPRATROPIUM-ALBUTEROL 3 ML NEB INHALATION PRN (18:15)
[2018-05-19] MEDS ORDERED: PNEUMONIA PROTOCOL UTILIZED 1 EACH MISC PO PRN (18:15)
--- NOTE | 2018-05-19 18:16 | ED ---
General Adult HPI - General Chief complaint: Chest Pain Stated complaint: n stemi Time Seen by Provider: 05/19/18 17:53 Source: patient, family, EMS, RN notes reviewed, old records reviewed (Chart reviewed from [facility] as well as urgent care.) Mode of arrival: EMS Limitations: no limitations - History of Present Illness Initial comments: Patient is a pleasant 78-year-old male presenting as a transfer from [facility] with concern for non-ST elevation [place]. Patient states he did have discomfort in his chest 3-4 days ago that resolved with a single nitroglycerin. Patient states he has been having coughing with productive yellow sputum over the past several days. Patient states his breathing has somewhat improved with several realize her treatments today. Patient was originally seen in urgent care and transferred to the emergency department and transferred here in order to see the patient's human resources office manager, Dr. Espinoza. Patient has no chest discomfort at this time. - Related Data Home Medications Medication Instructions Recorded Confirmed ALPRAZolam [Xanax] 0.5 mg PO Q6H 05/12/15 05/19/18 Atenolol [Tenormin] 25 mg PO DAILY 05/12/15 05/19/18 Cilostazol [Pletal] 50 mg PO BID 05/12/15 05/19/18 Citalopram Hydrobromide [CeleXA] 20 mg PO BID 05/12/15 05/19/18 Clopidogrel Bisulfate [Plavix] 75 mg PO DAILY 05/12/15 05/19/18 Furosemide [Lasix] 20 mg PO BID 05/12/15 05/19/18 Gabapentin [Neurontin] 600 mg PO TID 05/12/15 05/19/18 Lisinopril [Zestril] 10 mg PO DAILY 05/12/15 05/19/18 Aspirin EC [Ecotrin Low Dose] 81 mg PO DAILY 06/22/17 05/19/18 Insulin Glargine,Hum.rec.anlog 25 - 50 unit SQ HS 06/22/17 05/19/18 [Basaglar Kwikpen U-100] Insulin Lispro [humaLOG Kwikpen] 10 unit SQ 5XD 06/22/17 05/19/18 Levothyroxine Sodium [Synthroid] 50 mcg PO Q72H 06/22/17 05/19/18 oxyCODONE-APAP 7.5-325MG [Percocet 1 tab PO TID 06/22/17 05/19/18 7.5-325 mg] Ferrous Sulfate [Feosol] 325 mg PO BID 05/19/18 05/19/18 Insulin Lispro [humaLOG Kwikpen] See Protocol SQ 5XD 05/19/18 05/19/18 Zolpidem [Ambien] 10 mg PO HS 05/19/18 05/19/18 Allergies Allergy/AdvReac Type Severity Reaction Status Date / Time STATINS AdvReac MUSCLE Uncoded 05/19/18 18:18 WEAKNESS Review of Systems ROS Statement: Those systems with pertinent positive or pertinent negative responses have been documented in the HPI. ROS Other: All systems not noted in ROS Statement are negative. Constitutional: Denies: fever Eyes: Denies: eye pain ENT: Denies: ear pain Respiratory: Reports: cough, dyspnea Cardiovascular: Reports: chest pain Endocrine: Reports: fatigue Gastrointestinal: Denies: abdominal pain, nausea, vomiting Genitourinary: Denies: dysuria Musculoskeletal: Denies: back pain Skin: Denies: rash Neurological: Denies: weakness Past Medical History Past Medical History: Diabetes Mellitus, Hypertension, Myocardial Infarction ([place] ) Additional Past Medical History / Comment(s): spinal stenosis, arthritis Last Myocardial Infarction Date:: unknown History of Any Multi-Drug Resistant Organisms: None Reported Past Surgical History: Coronary Bypass/CABG, Heart Catheterization With Stent, Orthopedic Surgery Additional Past Surgical History / Comment(s): pt. states he has stents in his legs and an aneurysm repair Past Anesthesia/Blood Transfusion Reactions: No Reported Reaction Date of Last Stent Placement:: unknown Past Psychological History: Depression Smoking Status: Current every day smoker Past Alcohol Use History: None Reported Past Drug Use History: None Reported General Exam Limitations: no limitations General appearance: alert, in no apparent distress Head exam: Present: atraumatic Eye exam: Present: normal appearance, PERRL ENT exam: Present: normal oropharynx Neck exam: Present: normal inspection Respiratory exam: Present: wheezes Cardiovascular Exam: Present: regular rate, normal rhythm Expanded Peripheral pulses: 2+: Radial (R), Radial (L), Dorsalis Pedis (R), Dorsalis Pedis (L) GI/Abdominal exam: Present: soft. Absent: tenderness Extremities exam: Present: normal inspection. Absent: pedal edema, calf tenderness Neurological exam: Present: alert Psychiatric exam: Present: normal affect, normal mood Skin exam: Present: normal color Course Vital Signs 05/19/18 05/19/18 05/19/18 17:51 18:30 19:30 Temperature 98.2 F Pulse Rate 64 62 59 L Respiratory 14 22 14 Rate Blood Pressure 182/84 164/111 148/61 O2 Sat by Pulse 99 97 Oximetry EKG Findings - EKG Comments: EKG Findings:: Normal sinus rhythm 64. SC 196. QRS 94. QT 392. QTC 507. Normal axis. Incomplete right bundle-branch block. Nonspecific ST-T. Medical Decision Making - Medical Decision Making Case was discussed in detail with practitioner Feroz, covering for Dr. estevez, covering for hospital call, who will admit. Heparin has been restarted. Computed tomography scan from [facility] does have concern for pneumonia. Sepsis protocol used. Blood culture and lactic acid ordered. IV antibiotics started. Patient did test negative for influenza at [facility]. - Lab Data Result diagrams: 05/19/18 18:30 05/19/18 18:30 Disposition Clinical Impression: Pneumonia, NSTEMI (non-ST elevated myocardial infarction) Disposition: ADMITTED IP TO THIS HOSP Is patient prescribed a controlled substance at d/c from ED?: No Decision Time: 18:40
[2018-05-19] MEDS ORDERED: AZITHROMYCIN 500 MG in SODIUM CHLORIDE 0.9% 250 ML IVPB STA (18:18)
[2018-05-19 18:57] LABS: Basophils # (A) 0.1 k/uL (0-0.2); Basophils % (A) 1 %; Eosinophils # (A) 0.5 k/uL (0-0.7); Eosinophils % (A) 5 %; HCT 30.5 % (39.0-53.0); HGB 9.8 gm/dL (13.0-17.5); Lymphocytes # (A) 1.9 k/uL (1.0-4.8); Lymphocytes % (A) 20 %; MCH 34.9 pg (25.0-35.0); MCV 108.9 fL (80.0-100.0); Macrocytosis Marked; Mean Platelet Volume 7.4; Monocytes # (A) 0.8 k/uL (0-1.0); Monocytes % (A) 8 %; Neutrophils # (A) 6.1 k/uL (1.3-7.7); Neutrophils % (A) 62 %; Platelet Count 415 k/uL (150-450); RDW 14.3 % (11.5-15.5); WBC 9.7 k/uL (3.8-10.6)
[2018-05-19 19:12] LABS: Partial Thromboplastin Time 26.4 sec (22.0-30.0)
[2018-05-19 19:15] LABS: ALT 23 U/L (21-72); AST 15 U/L (17-59); Albumin 3.6 g/dL (3.5-5.0); Alkaline Phosphatase 120 U/L (38-126); Anion Gap 6 mmol/L; Blood Urea Nitrogen 10 mg/dL (9-20); Calcium 8.1 mg/dL (8.4-10.2); Carbon Dioxide 27 mmol/L (22-30); Chloride 107 mmol/L (98-107); Glucose 217 mg/dL (74-99); Potassium 4.2 mmol/L (3.5-5.1); Sodium 140 mmol/L (137-145); Total Bilirubin 0.5 mg/dL (0.2-1.3); Total Protein 6.4 g/dL (6.3-8.2)
[2018-05-19] MEDS: SODIUM CHLORIDE 0.9% 1,000 ML IV SCH (19:16)
[2018-05-19 19:28] LABS: Creatine Kinase MB 1.1 ng/mL (0.0-2.4)
[2018-05-19 19:30] LABS: Troponin I 0.108 ng/mL (0.000-0.034)
[2018-05-19 19:38] LABS: Anisocytosis (M) Present; Hypochromasia (M) Present; Polychromasia Present
[2018-05-19 20:41] LABS: Glucose,Whole Blood 164 mg/dL (75-99)
[2018-05-19] MEDS: IPRATROPIUM-ALBUTEROL 3 ML NEB INHALATION SCH (21:07)
[2018-05-19 21:08] VITALS: BMI 23.6
[2018-05-19] MEDS ORDERED: ALPRAZolam 0.5 MG TAB PO PRN (21:10)
[2018-05-19] MEDS: CILOSTAZOL 100 MG TAB PO SCH (22:49)
[2018-05-19] MEDS: NITROGLYCERIN OINT 1 INCH/GM PACKET TOPICAL SCH (22:50)
[2018-05-19] MEDS: oxyCODONE-APAP 7.5-325MG 1 EACH TAB PO PRN (22:50)
[2018-05-19] MEDS: ZOLPIDEM 10 MG TAB PO SCH (22:50)
[2018-05-19] MEDS: INSULIN DETEMIR (LEVEMIR) 100 UNIT/ML SYR SQ SCH ×2 (22:50→22:56)
[2018-05-19] MEDS: FERROUS SULFATE 325 MG TAB PO SCH (22:50)
[2018-05-19] MEDS: FUROSEMIDE 20 MG TAB PO SCH (22:50)
[2018-05-19] MEDS: GABAPENTIN 300 MG CAP PO SCH (22:50)
[2018-05-19] MEDS: CITALOPRAM HYDROBROMIDE 20 MG TAB PO SCH (22:50)
[2018-05-20 00:54] LABS: Creatine Kinase MB 0.9 ng/mL (0.0-2.4)
[2018-05-20 01:01] LABS: Troponin I 0.095 ng/mL (0.000-0.034)
[2018-05-20] MEDS: LISINOPRIL 10 MG TAB PO SCH ×2 (05:04→08:27)
[2018-05-20] MEDS: ATENOLOL 25 MG TAB PO SCH ×2 (05:04→08:26)
[2018-05-20] MEDS: SODIUM CHLORIDE 0.9% 1,000 ML IV SCH ×3 (05:05→23:18)
[2018-05-20 05:46] LABS: Glucose,Whole Blood 75 mg/dL (75-99)
[2018-05-20] MEDS: INSULIN ASPART (NovoLOG) 100 UNIT/ML VIAL SQ SCH ×7 (05:57→21:39)
[2018-05-20] MEDS: NITROGLYCERIN OINT 1 INCH/GM PACKET TOPICAL SCH ×4 (06:02→23:18)
[2018-05-20 06:57] LABS: Mean Platelet Volume 6.9; Platelet Count 410 k/uL (150-450)
[2018-05-20 07:05] LABS: Cholesterol 158 mg/dL (<200); HDL Cholesterol 37 mg/dL (40-60); LDL Cholesterol,Calculated 103 mg/dL (0-99); Triglycerides 90 mg/dL (<150)
[2018-05-20] MEDS: IPRATROPIUM-ALBUTEROL 3 ML NEB INHALATION SCH ×4 (08:31→19:29)
[2018-05-20] MEDS: AZITHROMYCIN 500 MG TAB PO SCH (09:28)
[2018-05-20] MEDS: FERROUS SULFATE 325 MG TAB PO SCH ×2 (09:28→20:10)
[2018-05-20] MEDS: GABAPENTIN 300 MG CAP PO SCH ×3 (09:29→20:09)
[2018-05-20] MEDS: CITALOPRAM HYDROBROMIDE 20 MG TAB PO SCH ×2 (09:29→20:10)
[2018-05-20] MEDS: FUROSEMIDE 20 MG TAB PO SCH ×2 (09:29→15:12)
[2018-05-20] MEDS: ASPIRIN 325 MG TAB PO SCH (09:29)
[2018-05-20] MEDS: CILOSTAZOL 100 MG TAB PO SCH ×2 (09:29→20:10)
[2018-05-20] MEDS: amLODIPine 5 MG TAB PO SCH (09:40)
[2018-05-20 09:57] LABS: Glucose,Whole Blood 108 mg/dL (75-99)
[2018-05-20 11:00] LABS: Basophils # (A) 0.1 k/uL (0-0.2); Basophils % (A) 1 %; Eosinophils # (A) 0.6 k/uL (0-0.7); Eosinophils % (A) 7 %; HCT 29.5 % (39.0-53.0); HGB 9.5 gm/dL (13.0-17.5); Hypochromasia Slight; Lymphocytes # (A) 1.9 k/uL (1.0-4.8); Lymphocytes % (A) 24 %; MCH 36.1 pg (25.0-35.0); MCHC 32.2 g/dL (31.0-37.0); MCV 112.2 fL (80.0-100.0); Macrocytosis Marked; Mean Platelet Volume 7.5; Monocytes # (A) 2.4 k/uL (0-1.0); Monocytes % (A) 30 %; Neutrophils # (A) 2.8 k/uL (1.3-7.7); Neutrophils % (A) 34 %; Platelet Count 397 k/uL (150-450); RBC 2.63 m/uL (4.30-5.90); RDW 14.6 % (11.5-15.5)
--- NOTE | 2018-05-20 11:08 | CONS ---
CONSULTATION Mr. Saleh is a 78-year-old gentleman who is seen for the cardiac evaluation. This patient's medical records from [facility] reviewed. Patient gives a history that he had some mild chest discomfort 3 to 4 days ago and it got relieved with nitroglycerin. Pain did not last long. Patient has been having some cough with productive yellow sputum. Patient was seen at [facility]. Subsequently was admitted and transferred over here. The patient had extensive workup done over there. The CAT scan was negative for pulmonary embolism. There was suggestion of bilateral airspace disease. The patient has been having some productive yellow sputum, but denies any fever or chills. There is no recurrence of chest pain. This patient has a significant history of peripheral vascular disease, coronary artery disease with a prior history of coronary artery bypass surgery as well as a stent. Patient recently has been treated for the lung cancer with the radiation therapy. Patient has been found to have some new lesions in the liver for which the patient was going to have further workup. The patient is otherwise in functional class 3, unable to ambulate. HOME MEDICATIONS: Include Xanax, Tenormin, Pletal, Celexa, Plavix, Lasix, Zestril, and . REVIEW OF THE SYSTEM: Otherwise unremarkable. PAST MEDICAL HISTORY: Includes history of coronary artery bypass surgery, prior history of cardiac catheterization with stent, recent history of cancer in the lungs. Patient has a history of a stent in the legs as well as a aneurysm repair, history of diabetes, myocardial infarction, spinal stenosis. PHYSICAL EXAMINATION: At present reveals a 78-year-old gentleman who does not appear to be in any acute distress. This patient's blood pressure is 196/81 mmHg. HEENT examination is negative. Neck is supple. There is no increase in jugular venous pressure. Both the carotid pulses are felt. There is no bruit. Chest is symmetrical. Heart, the PMI is not felt. First and second heart sounds are heard. Lungs reveal bilateral scattered wheezes. Abdomen is soft. Liver and spleen are not enlarged. Peripheral pulses are not well felt. This patient has troponins are 0.108 and 0.095, which are flat and it is not suggestive of acute coronary syndrome. EKG shows nonspecific ST changes. FINAL IMPRESSION: This patient is primarily admitted with cough with purulent expectoration. There is a possibility of pneumonia or tracheobronchitis. Patient is currently getting IV antibiotic treatment. History of a recent cancer of the lung. There is a new lesion in the liver. Patient had a chest discomfort which got relieved with nitroglycerin. Two troponins are flat without any significant rise and fall and without any significant evolution of the EKG changes. The overall picture is not suggestive of acute coronary syndrome. We will repeat the troponin. Amlodipine 5 mg daily is added. Echo and Doppler study will be done. If the patient can be discharged from pulmonary point of view, we will recommend to evaluate the patient with a stress test as an outpatient. MMODL / IJN: [id number] /
[2018-05-20 11:14] LABS: Anion Gap 3 mmol/L; Blood Urea Nitrogen 10 mg/dL (9-20); Calcium 8.3 mg/dL (8.4-10.2); Carbon Dioxide 28 mmol/L (22-30); Chloride 110 mmol/L (98-107); Glucose 54 mg/dL (74-99); Sodium 141 mmol/L (137-145)
[2018-05-20 11:14] LABS: Glucose,Whole Blood 196 mg/dL (75-99)
--- NOTE | 2018-05-20 11:40 | P.HPIM ---
History of Present Illness 78-year-old pleasant gentleman was transferred from my in outside facility with suspicion of non-ST elevation microinfarction patient presented there with mild brief chest pain and left side of the chest which is a musculoskeletal nonpleuritic found to have minimally elevated troponins because of which patient was transferred here patient has minimally elevated plaque troponins because of his cardiology doesn't believe patient has acute microinfarction the recommending monitoring one more night. Patient does have history of lung cancer doesn't have any fever chills I was told the patient is found to have pneumonia on the chest x-ray although clinically patient does not have any pneumonia patient doesn't look toxic clinically doesn't appear to have some bronchitis with rhonchus breath sounds and minimal wheeze. Patient does have COPD, patient does have generalized weakness. Patient is coughing unable to bring up anything. Patient does not have a leukocytosis and fever and partially I am unable to open the chest x-ray images after multiple attempts and there is no reading either although patient clinically does not appear to have pneumonia as mentioned about doesn't have any bronchophony egophony. Patient will continue antibiotics for it today possibly can be discharged on azithromycin on doxycycline tomorrow for bronchitis. Patient will need inhalational treatments and inhalational steroids for his COPD with minimal exacerbation. Patient denied any focal weakness but does have generalized weakness patient does have physical therapy at home all get PT and OT evaluation here to make sure patient will not need any placement to subacute rehabilitation. Patient is a Lovenox for DVT prophylaxis which will be continued patient chest pain completely resolved and nonpleuritic in nature my suspicion for PE is low. Review of Systems REVIEW OF SYSTEMS: CONSTITUTIONAL: No fever, no malaise, no fatigue. HEENT: No recent visual problems or hearing problems. Denied any sore throat. CARDIOVASCULAR: No orthopnea, PND, no palpitations, no syncope. PULMONARY: No shortness of breath, no cough, no hemoptysis. GASTROINTESTINAL: No diarrhea, no nausea, no vomiting, no abdominal pain. NEUROLOGICAL: No headaches, no weakness, no numbness. HEMATOLOGICAL: Denies any bleeding or petechiae. GENITOURINARY: Denies any burning micturition, frequency, or urgency. MUSCULOSKELETAL/RHEUMATOLOGICAL: Denies any joint pain, swelling, or any muscle pain. ENDOCRINE: Denies any polyuria or polydipsia. The rest of the 14-point review of systems is negative. Past Medical History Past Medical History: Diabetes Mellitus, Hypertension, Myocardial Infarction ([place] ) Additional Past Medical History / Comment(s): spinal stenosis, arthritis Last Myocardial Infarction Date:: unknown History of Any Multi-Drug Resistant Organisms: None Reported Past Surgical History: Coronary Bypass/CABG, Heart Catheterization With Stent, Orthopedic Surgery Additional Past Surgical History / Comment(s): pt. states he has stents in his legs and an aneurysm repair Past Anesthesia/Blood Transfusion Reactions: No Reported Reaction Date of Last Stent Placement:: unknown Past Psychological History: Depression Smoking Status: Current every day smoker Past Alcohol Use History: None Reported Past Drug Use History: None Reported Medications and Allergies Home Medications Medication Instructions Recorded Confirmed Type ALPRAZolam [Xanax] 0.5 mg PO Q6H 05/12/15 05/19/18 History Atenolol [Tenormin] 25 mg PO DAILY 05/12/15 05/19/18 History Cilostazol [Pletal] 50 mg PO BID 05/12/15 05/19/18 History Citalopram Hydrobromide [CeleXA] 20 mg PO BID 05/12/15 05/19/18 History Clopidogrel Bisulfate [Plavix] 75 mg PO DAILY 05/12/15 05/19/18 History Furosemide [Lasix] 20 mg PO BID 05/12/15 05/19/18 History Gabapentin [Neurontin] 600 mg PO TID 05/12/15 05/19/18 History Lisinopril [Zestril] 10 mg PO DAILY 05/12/15 05/19/18 History Aspirin EC [Ecotrin Low Dose] 81 mg PO DAILY 06/22/17 05/19/18 History Insulin Glargine,Hum.rec.anlog 25 - 50 unit SQ HS 06/22/17 05/19/18 History [Basaglar Kwikpen U-100] Insulin Lispro [humaLOG Kwikpen] 10 unit SQ 5XD 06/22/17 05/19/18 History Levothyroxine Sodium [Synthroid] 50 mcg PO Q72H 06/22/17 05/19/18 History oxyCODONE-APAP 7.5-325MG [Percocet 1 tab PO TID 06/22/17 05/19/18 History 7.5-325 mg] Ferrous Sulfate [Feosol] 325 mg PO BID 05/19/18 05/19/18 History Insulin Lispro [humaLOG Kwikpen] See Protocol SQ 5XD 05/19/18 05/19/18 History Zolpidem [Ambien] 10 mg PO HS 05/19/18 05/19/18 History Allergies Allergy/AdvReac Type Severity Reaction Status Date / Time STATINS AdvReac MUSCLE Uncoded 05/19/18 18:18 WEAKNESS Physical Exam Vitals: Vital Signs Temp Pulse Pulse Resp BP BP Pulse Ox 05/20/18 08:00 98.2 F 68 17 196/81 95 05/20/18 06:02 163/72 05/20/18 04:00 97.8 F 74 18 193/81 96 05/20/18 00:00 69 18 05/19/18 23:59 98.2 F 69 18 165/72 95 05/19/18 21:15 88 05/19/18 21:09 84 05/19/18 20:56 98.3 F 62 18 167/74 98 05/19/18 20:05 98.3 F 62 18 167/74 98 05/19/18 19:30 59 L 14 148/61 97 05/19/18 18:30 62 22 164/111 05/19/18 17:51 98.2 F 64 14 182/84 99 Intake and Output 05/19/18 05/20/18 05/20/18 22:59 06:59 14:59 Intake Total 257.26 854.024 Output Total 1025 Balance 257.26 -170.976 Intake: Intake, IV Titration 257.26 854.024 Amount Azithromycin 500 mg In 250 Sodium Chloride 0.9% 250 ml @ 250 mls/hr IVPB ONCE STA Rx#:[id number] Heparin Sod,Pork in 0.45% 7.26 54.024 NaCl 25,000 unit In 0.45 % NaCl 1 250ml.bag @ 12 UNITS/KG/HR 9.47 mls/hr IV .Q24H JULIANNA Rx#: [id number] Sodium Chloride 0.9% 1, 800 000 ml @ 100 mls/hr IV . Q10H JULIANNA Rx#:[id number] Output: Urine 1025 Other: Voiding Method Urinal # Voids 1 # Bowel Movements 1 Weight 78.925 kg 72.5 kg PHYSICAL EXAMINATION: GENERAL: The patient is alert and oriented x3, not in any acute distress. Well developed, well nourished. HEENT: Pupils are round and equally reacting to light. EOMI. No scleral icterus. No conjunctival pallor. Normocephalic, atraumatic. No pharyngeal erythema. No thyromegaly. CARDIOVASCULAR: S1 and S2 present. No murmurs, rubs, or gallops. PULMONARY: Minimal expiratory wheezing rhonchus breath sounds. ABDOMEN: Soft, nontender, nondistended, normoactive bowel sounds. No palpable organomegaly. MUSCULOSKELETAL: No joint swelling or deformity. EXTREMITIES: No cyanosis, clubbing, or pedal edema. NEUROLOGICAL: Gross neurological examination did not reveal any focal deficits. SKIN: No rashes. Results CBC & Chem 7: 05/20/18 06:15 05/20/18 06:15 Labs: Abnormal Lab Results - Last 24 Hours (Table) 05/19/18 05/19/18 05/19/18 Range/Units 18:30 18:30 18:30 RBC 2.80 L (4.30-5.90) m/uL Hgb 9.8 L (13.0-17.5) gm/dL Hct 30.5 L (39.0-53.0) % MCV 108.9 H (80.0-100.0) fL APTT (22.0-30.0) sec Glucose (74-99) mg/dL POC Glucose (mg/dL) (75-99) mg/dL Calcium (8.4-10.2) mg/dL AST (17-59) U/L Creatine Kinase 53 L (55-170) U/L Troponin I 0.108 H* (0.000-0.034) ng/mL LDL Cholesterol, Calc (0-99) mg/dL HDL Cholesterol (40-60) mg/dL 05/19/18 05/19/18 05/20/18 Range/Units 18:30 20:40 00:00 RBC (4.30-5.90) m/uL Hgb (13.0-17.5) gm/dL Hct (39.0-53.0) % MCV (80.0-100.0) fL APTT 50.3 H (22.0-30.0) sec Glucose 217 H (74-99) mg/dL POC Glucose (mg/dL) 164 H (75-99) mg/dL Calcium 8.1 L (8.4-10.2) mg/dL AST 15 L (17-59) U/L Creatine Kinase (55-170) U/L Troponin I (0.000-0.034) ng/mL LDL Cholesterol, Calc (0-99) mg/dL HDL Cholesterol (40-60) mg/dL 05/20/18 05/20/18 05/20/18 Range/Units 00:00 00:00 06:15 RBC (4.30-5.90) m/uL Hgb (13.0-17.5) gm/dL Hct (39.0-53.0) % MCV (80.0-100.0) fL APTT (22.0-30.0) sec Glucose (74-99) mg/dL POC Glucose (mg/dL) (75-99) mg/dL Calcium (8.4-10.2) mg/dL AST (17-59) U/L Creatine Kinase 49 L (55-170) U/L Troponin I 0.095 H* (0.000-0.034) ng/mL LDL Cholesterol, Calc 103 H (0-99) mg/dL HDL Cholesterol 37 L (40-60) mg/dL 05/20/18 Range/Units 06:15 RBC (4.30-5.90) m/uL Hgb (13.0-17.5) gm/dL Hct (39.0-53.0) % MCV (80.0-100.0) fL APTT 36.7 H (22.0-30.0) sec Glucose (74-99) mg/dL POC Glucose (mg/dL) (75-99) mg/dL Calcium (8.4-10.2) mg/dL AST (17-59) U/L Creatine Kinase (55-170) U/L Troponin I (0.000-0.034) ng/mL LDL Cholesterol, Calc (0-99) mg/dL HDL Cholesterol (40-60) mg/dL Thrombosis Risk Factor Assmnt - Choose All That Apply Any of the Below Risk Factors Present?: Yes Other Risk Factors: Yes Each Risk Factor Represents 2 Points: Age 61-74 years Other congenital or acquired thrombophilia - If yes, enter type in comment: No Thrombosis Risk Factor Assessment Total Risk Factor Score: 2 Thrombosis Risk Factor Assessment Level: Low Risk Assessment and Plan Plan: Chest pain: Atypical probably muscular skeletal with minimally elevated troponins and cardiology evaluated the patient suspicion for acute microinfarction is low. IV heparin was discussed in patient is on DVT prophylaxis the occiput and -Bronchitis patient will be can you done above-mentioned antibiotics my suspicion of pneumonia is extremely low Rocephin will be this can you tomorrow patient will be discharged as mentioned above on azithromycin and doxycycline I do not believe patient relates systemic steroids patient was started on inhaled steroids and inhalational treatments pulmonary visit was consulted from ER. -Type 2 diabetes mellitus -Hypertension -Coronary artery disease with microinfarction patient had a CABG in the past -Continued nicotine use: Counseling was provided -History of lung cancer for which patient is following up as an outpatient had a radiation therapy in the past
[2018-05-20] MEDS: ENOXAPARIN 40 MG/0.4 ML SYRINGE SQ SCH (12:28)
--- NOTE | 2018-05-20 14:45 | P.CNPUL ---
History of Present Illness Consult date: 05/20/18 Reason for consult: dyspnea, cough, chest pain, COPD, hypoxemia Chief complaint: Increasing cough congestion shortness breath started about 3-4 days ago History of present illness: 78-year-old male who has a severe COPD emphysema has ongoing problems associated with cough congestion and yellow sputum production symptoms started about 4 days ago with some chest tightness as well patient does have a history of significant coronary artery disease has been seen by Dr. Palomino in the past with placement of stents, it appears that due to progressive symptoms patient went to the urgent care from there patient was advised to go to the hospital there was some suspicion of non-ST segment elevated [place], patient has been evaluated by cardiovascular services Review of Systems All systems: negative Past Medical History Past Medical History: Diabetes Mellitus, Hypertension, Myocardial Infarction ([place] ) Additional Past Medical History / Comment(s): spinal stenosis, arthritis Last Myocardial Infarction Date:: unknown History of Any Multi-Drug Resistant Organisms: None Reported Past Surgical History: Coronary Bypass/CABG, Heart Catheterization With Stent, Orthopedic Surgery Additional Past Surgical History / Comment(s): pt. states he has stents in his legs and an aneurysm repair Past Anesthesia/Blood Transfusion Reactions: No Reported Reaction Date of Last Stent Placement:: unknown Past Psychological History: Depression Smoking Status: Current every day smoker Past Alcohol Use History: None Reported Past Drug Use History: None Reported Medications and Allergies Home Medications Medication Instructions Recorded Confirmed Type ALPRAZolam [Xanax] 0.5 mg PO Q6H 05/12/15 05/19/18 History Atenolol [Tenormin] 25 mg PO DAILY 05/12/15 05/19/18 History Cilostazol [Pletal] 50 mg PO BID 05/12/15 05/19/18 History Citalopram Hydrobromide [CeleXA] 20 mg PO BID 05/12/15 05/19/18 History Clopidogrel Bisulfate [Plavix] 75 mg PO DAILY 05/12/15 05/19/18 History Furosemide [Lasix] 20 mg PO BID 05/12/15 05/19/18 History Gabapentin [Neurontin] 600 mg PO TID 05/12/15 05/19/18 History Lisinopril [Zestril] 10 mg PO DAILY 05/12/15 05/19/18 History Aspirin EC [Ecotrin Low Dose] 81 mg PO DAILY 06/22/17 05/19/18 History Insulin Glargine,Hum.rec.anlog 25 - 50 unit SQ HS 06/22/17 05/19/18 History [Basaglar Kwikpen U-100] Insulin Lispro [humaLOG Kwikpen] 10 unit SQ 5XD 06/22/17 05/19/18 History Levothyroxine Sodium [Synthroid] 50 mcg PO Q72H 06/22/17 05/19/18 History oxyCODONE-APAP 7.5-325MG [Percocet 1 tab PO TID 06/22/17 05/19/18 History 7.5-325 mg] Ferrous Sulfate [Feosol] 325 mg PO BID 05/19/18 05/19/18 History Insulin Lispro [humaLOG Kwikpen] See Protocol SQ 5XD 05/19/18 05/19/18 History Zolpidem [Ambien] 10 mg PO HS 05/19/18 05/19/18 History Allergies Allergy/AdvReac Type Severity Reaction Status Date / Time STATINS AdvReac MUSCLE Uncoded 05/19/18 18:18 WEAKNESS Physical Exam Vitals: Vital Signs Temp Pulse Pulse Resp BP BP Pulse Ox 05/20/18 12:00 98.2 F 67 17 178/62 95 05/20/18 08:00 98.2 F 68 17 196/81 95 05/20/18 06:02 163/72 05/20/18 04:00 97.8 F 74 18 193/81 96 05/20/18 00:00 69 18 05/19/18 23:59 98.2 F 69 18 165/72 95 05/19/18 21:15 88 05/19/18 21:09 84 05/19/18 20:56 98.3 F 62 18 167/74 98 05/19/18 20:05 98.3 F 62 18 167/74 98 05/19/18 19:30 59 L 14 148/61 97 05/19/18 18:30 62 22 164/111 05/19/18 17:51 98.2 F 64 14 182/84 99 Intake and Output 05/19/18 05/20/18 05/20/18 22:59 06:59 14:59 Intake Total 257.26 854.024 107.653 Output Total 1025 Balance 257.26 -170.976 107.653 Intake: Intake, IV Titration 257.26 854.024 107.653 Amount Azithromycin 500 mg In 250 Sodium Chloride 0.9% 250 ml @ 250 mls/hr IVPB ONCE STA Rx#:[id number] Heparin Sod,Pork in 0.45% 7.26 54.024 107.653 NaCl 25,000 unit In 0.45 % NaCl 1 250ml.bag @ 12 UNITS/KG/HR 9.47 mls/hr IV .Q24H [facility] Rx#: [id number] Sodium Chloride 0.9% 1, 800 000 ml @ 100 mls/hr IV . Q10H [facility] Rx#:[id number] Output: Urine 1025 Other: Voiding Method Urinal Urinal # Voids 1 # Bowel Movements 1 Weight 78.925 kg 72.5 kg - Constitutional General appearance: average body habitus, cooperative, disheveled, mild distress - EENT Eyes: EOMI, PERRLA, poor dentition, normal appearance ENT: normal oropharynx Ears: bilateral: normal - Neck Neck: normal ROM Carotids: bilateral: upstroke normal Thyroid: bilateral: normal size - Respiratory Respiratory: bilateral: rhonchi, wheezing, prolonged expiration - Cardiovascular Rhythm: regular Heart sounds: normal: S1, S2 - Gastrointestinal General gastrointestinal: soft - Integumentary Integumentary: normal, normal turgor - Neurologic Neurologic: CNII-XII intact - Musculoskeletal Musculoskeletal: gait normal, generalized weakness, strength equal bilaterally - Psychiatric Psychiatric: A&O x's 3, appropriate affect, intact judgment & insight Results - Laboratory Findings CBC and BMP: 05/20/18 06:15 05/20/18 06:15 PT/INR, D-dimer PT 11.0 sec (9.0-12.0) 05/19/18 18:30 INR 1.0 (<1.2) 05/19/18 18:30 Abnormal lab findings: Abnormal Labs 05/19/18 05/19/18 05/19/18 18:30 18:30 18:30 RBC 2.80 L Hgb 9.8 L Hct 30.5 L MCV 108.9 H MCH Monocytes # APTT Chloride Glucose POC Glucose (mg/dL) Calcium AST Creatine Kinase 53 L Troponin I 0.108 H* LDL Cholesterol, Calc HDL Cholesterol 05/19/18 05/19/1805/20/19 18:30 20:40 00:00 RBC Hgb Hct MCV MCH Monocytes # APTT 50.3 H Chloride Glucose 217 H POC Glucose (mg/dL) 164 H Calcium 8.1 L AST 15 L Creatine Kinase Troponin I LDL Cholesterol, Calc HDL Cholesterol 05/20/18 05/20/18 05/20/18 00:00 00:00 06:15 RBC Hgb Hct MCV MCH Monocytes # APTT Chloride Glucose POC Glucose (mg/dL) Calcium AST Creatine Kinase 49 L Troponin I 0.095 H* LDL Cholesterol, Calc 103 H HDL Cholesterol 37 L 05/20/18 05/20/18 05/20/18 06:15 06:15 06:15 RBC 2.63 L Hgb 9.5 L Hct 29.5 L MCV 112.2 H MCH 36.1 H Monocytes # 2.4 H APTT 36.7 H Chloride Glucose POC Glucose (mg/dL) Calcium AST Creatine Kinase Troponin I 0.121 H* LDL Cholesterol, Calc HDL Cholesterol 05/20/18 05/20/18 05/20/18 06:15 09:55 11:12 RBC Hgb Hct MCV MCH Monocytes # APTT Chloride 110 H Glucose 54 L POC Glucose (mg/dL) 108 H 196 H Calcium 8.3 L AST Creatine Kinase Troponin I LDL Cholesterol, Calc HDL Cholesterol - Diagnostic Findings Chest x-ray: pending Additional studies: EKG data and results are reviewed there is a normal sinus rhythm with incomplete right bundle branch block prolonged QT interval has been noted with nonspecific ST and T wave changes Assessment and Plan Assessment: Acute COPD exacerbation Acute purulent tracheobronchitis Coronary artery disease Elevated troponins Type 2 diabetes mellitus Hypertension hypertensive cardiovascular disease History of lung cancer status post XRT History of ongoing smoking and nicotine use Plan: Bronchodilators Broad-spectrum antibiotics IV steroids We will review chest x-ray once available unable to download Time with Patient: Greater than 30
--- NOTE | 2018-05-20 14:53 | XR ---
EXAMINATION TYPE: XR chest 2V DATE OF EXAM: 05/20/2018 COMPARISON: 06/22/2017 INDICATION: Pneumonia TECHNIQUE: Frontal and lateral views of the chest are obtained. FINDINGS: The heart size is normal. The pulmonary vasculature is diffusely. There is diffuse increased lung markings present bilaterally. No focal consolidations are evident. IMPRESSION: 1. Correlate for pulmonary edema or diffuse infectious etiology. Consider viral pneumonia.
[2018-05-20] MEDS: methylPREDNISolone SOD SUCCI 40 MG/ML 1 ML VIAL IV SCH ×2 (15:11→20:10)
[2018-05-20 16:17] LABS: Hemoglobin A1C 8.3 % (4.0-6.0)
[2018-05-20 16:53] LABS: Glucose,Whole Blood 102 mg/dL (75-99)
--- NOTE | 2018-05-20 18:38 | ECHOF ---
Referral Reason:nstemi MEASUREMENTS -------- HEIGHT: 182.9 cm WEIGHT: 72.1 kg BP: RVIDd: 3.0 cm (< 3.3) IVSd: 1.3 cm (0.6 - 1.1) LVIDd: 4.3 cm (3.9 - 5.3) LVPWd: 1.1 cm (0.6 - 1.1) IVSs: 1.4 cm LVIDs: 3.6 cm LVPWs: 1.2 cm LA Diam: 3.9 cm (2.7 - 3.8) LAESV Index (A-L): 28.96 ml/m Ao Diam: 3.6 cm (2.0 - 3.7) AV Cusp: 2.0 cm (1.5 - 2.6) LA Diam: 4.2 cm (2.7 - 3.8) MV EXCURSION: 19.783 mm (> 18.000) MV EF SLOPE: 62 mm/s (70 - 150) EPSS: 1.0 cm MV E Vincent: 0.98 m/s MV DecT: 181 ms MV A Vincent: 0.60 m/s MV E/A Ratio: 1.64 RAP: 5.00 mmHg RVSP: 44.16 mmHg FINDINGS -------- Sinus rhythm. This was a technically adequate study. The left ventricular size is normal. There is mild concentric left ventricular hypertrophy. Overa ll left ventricular systolic function is low-normal with, an EF between 50 - 55 %. The right ventricle is normal in size. The left atrial size is normal. The right atrial size is normal. There is mild aortic valve sclerosis. There is no evidence of aortic regurgitation. Mild mitral annular calcification present. Mild mitral regurgitation is present. Mild tricuspid regurgitation present. There is mild pulmonary hypertension. The right ventricular systolic pressure, as measured by Doppler, is 44.16mmHg. Trace/mild (physiologic) pulmonic regurgitation. The aortic root size is normal. There is no pericardial effusion. CONCLUSIONS -------- 1. The left ventricular size is normal. 2. There is mild concentric left ventricular hypertrophy. 3. Overall left ventricular systolic function is low-normal with, an EF between 50 - 55 %. 4. The right ventricle is normal in size. 5. The left atrial size is normal. 6. The right atrial size is normal. 7. There is mild aortic valve sclerosis. 8. Mild mitral annular calcification present. 9. Mild mitral regurgitation is present. 10. Mild tricuspid regurgitation present. 11. There is mild pulmonary hypertension. 12. The right ventricular systolic pressure, as measured by Doppler, is 44.16mmHg. 13. Trace/mild (physiologic) pulmonic regurgitation. 14. The aortic root size is normal. 15. There is no pericardial effusion. [employer] SECRETARY: Erin Castro RDCS
[2018-05-20] MEDS: SYMBICORT 160-4.5 MCG INHALER INHALATION SCH (19:29)
[2018-05-20] MEDS: oxyCODONE-APAP 7.5-325MG 1 EACH TAB PO PRN (20:09)
[2018-05-20] MEDS: ZOLPIDEM 10 MG TAB PO SCH (20:10)
[2018-05-20 20:56] LABS: Glucose,Whole Blood 373 mg/dL (75-99)
[2018-05-20] MEDS: INSULIN DETEMIR (LEVEMIR) 100 UNIT/ML SYR SQ SCH (21:39)
[2018-05-21 01:40] LABS: Glucose,Whole Blood 308 mg/dL (75-99)
[2018-05-21] MEDS: NITROGLYCERIN OINT 1 INCH/GM PACKET TOPICAL SCH ×2 (05:30→14:18)
[2018-05-21 06:18] LABS: Glucose,Whole Blood 304 mg/dL (75-99)
[2018-05-21 06:25] LABS: HCT 30.5 % (39.0-53.0); HGB 9.6 gm/dL (13.0-17.5); MCHC 31.5 g/dL (31.0-37.0); MCV 111.2 fL (80.0-100.0); Mean Platelet Volume 7.6; Platelet Count 431 k/uL (150-450); RBC 2.74 m/uL (4.30-5.90); RDW 14.5 % (11.5-15.5); WBC 7.1 k/uL (3.8-10.6)
[2018-05-21 06:26] LABS: Macrocytosis Marked
[2018-05-21] MEDS: INSULIN ASPART (NovoLOG) 100 UNIT/ML VIAL SQ SCH ×4 (06:32→12:11)
[2018-05-21 06:41] LABS: Anion Gap 7 mmol/L; Blood Urea Nitrogen 15 mg/dL (9-20); Calcium 8.8 mg/dL (8.4-10.2); Carbon Dioxide 24 mmol/L (22-30); Chloride 107 mmol/L (98-107); Glucose 299 mg/dL (74-99); Potassium 4.6 mmol/L (3.5-5.1); Sodium 138 mmol/L (137-145)
[2018-05-21] MEDS: SYMBICORT 160-4.5 MCG INHALER INHALATION SCH (07:21)
[2018-05-21] MEDS: IPRATROPIUM-ALBUTEROL 3 ML NEB INHALATION SCH ×2 (07:21→11:09)
[2018-05-21] MEDS: methylPREDNISolone SOD SUCCI 40 MG/ML 1 ML VIAL IV SCH (08:48)
[2018-05-21] MEDS: ASPIRIN 325 MG TAB PO SCH (08:49)
[2018-05-21] MEDS: ENOXAPARIN 40 MG/0.4 ML SYRINGE SQ SCH (08:49)
[2018-05-21] MEDS: CILOSTAZOL 100 MG TAB PO SCH (08:49)
[2018-05-21] MEDS: GABAPENTIN 300 MG CAP PO SCH (08:49)
[2018-05-21] MEDS: FERROUS SULFATE 325 MG TAB PO SCH (08:50)
[2018-05-21] MEDS: ATENOLOL 25 MG TAB PO SCH (08:50)
[2018-05-21] MEDS: LISINOPRIL 10 MG TAB PO SCH (08:50)
[2018-05-21] MEDS: AZITHROMYCIN 500 MG TAB PO SCH (08:50)
[2018-05-21] MEDS: FUROSEMIDE 20 MG TAB PO SCH (08:50)
[2018-05-21] MEDS ORDERED: amLODIPine 5 MG TAB PO SCH (09:00)
[2018-05-21] MEDS: oxyCODONE-APAP 7.5-325MG 1 EACH TAB PO PRN (09:36)
[2018-05-21 11:20] VITALS: TEMP 97.8
[2018-05-21 11:23] LABS: Glucose,Whole Blood 346 mg/dL (75-99)
[2018-05-21] MEDS: CITALOPRAM HYDROBROMIDE 20 MG TAB PO SCH (11:41)
[2018-05-21] MEDS: amLODIPine 5 MG TAB PO SCH (11:42)
--- NOTE | 2018-05-21 12:46 | P.PN ---
Subjective Progress Note Date: 05/21/18 This is a 78-year-old gentleman seen in consultation yesterday by Dr. VC Aoyub. Patient presented to the hospital with symptoms of productive cough of yellow sputum, no associated fever and chills. Patient has a significant history of peripheral vascular disease, coronary artery disease with prior history of coronary artery bypass grafting surgery and stent placement, recently treated for lung cancer with radiation therapy, and now has been found to have some new lesions in the liver for which the patient was going to have further workup. He is currently receiving treatment for a possibility of pneumonia and tracheobronchitis. His troponins were mildly abnormal, however they were flat with no significant rise and fall pattern, no significant evolution of EKG changes. Overall picture not suggestive of acute coronary syndrome. His echocardiogram with Doppler study showed a normal left ventricular systolic function. Objective - Vital Signs Vital signs: Vital Signs Temp 97.8 F 05/21/18 08:00 Pulse 84 05/21/18 11:27 Resp 18 05/21/18 08:59 BP 138/67 05/21/18 08:00 Pulse Ox 96 05/21/18 08:00 Intake & Output 05/20/18 05/21/18 05/21/18 18:59 06:59 18:59 Intake Total 967.653 360 Output Total 500 Balance 467.653 360 Weight 78.5 kg Intake: Intake, IV Titration 107.653 Amount Heparin Sod,Pork in 0.45% 107.653 NaCl 25,000 unit In 0.45 % NaCl 1 250ml.bag @ 12 UNITS/KG/HR 9.47 mls/hr IV .Q24H [facility] Rx#: [id number] Oral 860 360 Output: Urine 500 Other: Voiding Method Urinal Urinal Urinal # Voids 2 1 # Bowel Movements 1 - Exam PHYSICAL EXAMINATION: GENERAL: 78-year-old gentleman in no acute distress at the time of examination HEENT: Head is atraumatic, normocephalic. Pupils equal, round. Sclera anicteric. Conjunctiva are clear. Mucous membranes of the mouth are moist. Neck is supple. There is no elevated jugular venous pressure. No carotid bruit is heard. HEART EXAMINATION: Heart S1, S2 normal. No murmur or gallop heard. CHEST EXAMINATION:'s reveal some fine scattered wheezing throughout. ABDOMEN: Soft, nontender. Bowel sounds are heard. No organomegaly noted. EXTREMITIES: 2+ peripheral pulses with no evidence of peripheral edema and no calf tenderness noted. NEUROLOGIC patient is awake, alert and oriented 3 . . - Labs CBC & Chem 7: 05/21/18 06:05 05/21/18 06:05 Labs: Abnormal Lab Results - Last 24 Hours (Table) 05/20/18 05/20/18 05/20/18 Range/Units 06:15 16:52 20:54 RBC (4.30-5.90) m/uL Hgb (13.0-17.5) gm/dL Hct (39.0-53.0) % MCV (80.0-100.0) fL Glucose (74-99) mg/dL POC Glucose (mg/dL) 102 H 373 H (75-99) mg/dL Hemoglobin A1c 8.3 H (4.0-6.0) % 05/21/18 05/21/18 05/21/18 Range/Units 01:38 06:05 06:05 RBC 2.74 L (4.30-5.90) m/uL Hgb 9.6 L (13.0-17.5) gm/dL Hct 30.5 L (39.0-53.0) % MCV 111.2 H (80.0-100.0) fL Glucose 299 H (74-99) mg/dL POC Glucose (mg/dL) 308 H (75-99) mg/dL Hemoglobin A1c (4.0-6.0) % 05/21/18 05/21/18 Range/Units 06:11 11:18 RBC (4.30-5.90) m/uL Hgb (13.0-17.5) gm/dL Hct (39.0-53.0) % MCV (80.0-100.0) fL Glucose (74-99) mg/dL POC Glucose (mg/dL) 304 H 346 H (75-99) mg/dL Hemoglobin A1c (4.0-6.0) % Microbiology - Last 24 Hours (Table) 05/19/18 18:30 Blood Culture - Preliminary Blood No Growth after 24 hours Assessment and Plan Plan: Assessment and plan #1 symptoms of productive cough of yellow sputum, likely secondary to a possible pneumonia or acute tracheobronchitis, currently on IV antibiotics #2 atypical chest pain, troponins do not show a significant rise and fall pattern, clinical picture not suggestive of acute coronary syndrome. Echo reveals normal left ventricular systolic function. #3 diabetes #4 hypertension #5 hyperlipidemia #6 nicotine dependence #7 lung cancer with possible liver cancer #8 coronary artery disease with prior bypass surgery and PCI in the past. Plan From cardiology's perspective, patient may be able to be discharged home once cleared by primary. We'll make him a follow-up appointment in the office post discharge. DNP note has been reviewed, I agree with a documented findings and plan of care. Patient was seen and examined.
[2018-05-21 15:18] VITALS: BP 135/71; PULSE 89; RESP 17
--- NOTE | 2018-05-21 16:14 | P.DS ---
Providers Date of admission: 05/19/18 18:11 Attending physician: Phil Barone MD Consults: 05/19/18 18:09 Consult Physician Urgent Consulting Provider: Humble Regan Consult Reason/Comments: COPD Do you want consulting provider notified?: Yes 05/19/18 18:11 Consult Physician Urgent Consulting Provider: Carlos A Espinoza Consult Reason/Comments: nstemi Do you want consulting provider notified?: Yes Primary care physician: [facility] Course: 78-year-old pleasant gentleman was transferred from my in outside facility with suspicion of non-ST elevation microinfarction patient presented there with mild brief chest pain and left side of the chest which is a musculoskeletal nonpleuritic found to have minimally elevated troponins because of which patient was transferred here patient has minimally elevated plaque troponins because of his cardiology doesn't believe patient has acute microinfarction the recommending monitoring one more night. Patient does have history of lung cancer doesn't have any fever chills I was told the patient is found to have pneumonia on the chest x-ray although clinically patient does not have any pneumonia patient doesn't look toxic clinically doesn't appear to have some bronchitis with rhonchus breath sounds and minimal wheeze. Patient does have COPD, patient does have generalized weakness. Patient is coughing unable to bring up anything. Patient does not have a leukocytosis and fever and partially I am unable to open the chest x-ray images after multiple attempts and there is no reading either although patient clinically does not appear to have pneumonia as mentioned about doesn't have any bronchophony egophony. Patient will continue antibiotics for it today possibly can be discharged on azithromycin on doxycycline tomorrow for bronchitis. Patient will need inhalational treatments and inhalational steroids for his COPD with minimal exacerbation. Patient denied any focal weakness but does have generalized weakness patient does have physical therapy at home all get PT and OT evaluation here to make sure patient will not need any placement to subacute rehabilitation. Patient is a Lovenox for DVT prophylaxis which will be continued patient chest pain completely resolved and nonpleuritic in nature my suspicion for PE is low. 05/21/2018 Patient was pretty status improved will be discharged today in stable medical condition to home patient the is doing well with walker. Patient will follow- up with the pulmonology and his oncologist as well as primary care physician as an outpatient and patient is cleared by cardiology. PHYSICAL EXAMINATION: GENERAL: The patient is alert and oriented x3, not in any acute distress. Well developed, well nourished. HEENT: Pupils are round and equally reacting to light. EOMI. No scleral icterus. No conjunctival pallor. Normocephalic, atraumatic. No pharyngeal erythema. No thyromegaly. CARDIOVASCULAR: S1 and S2 present. No murmurs, rubs, or gallops. PULMONARY: Chest is clear to auscultation, no wheezing or crackles. ABDOMEN: Soft, nontender, nondistended, normoactive bowel sounds. No palpable organomegaly. MUSCULOSKELETAL: No joint swelling or deformity. EXTREMITIES: No cyanosis, clubbing, or pedal edema. NEUROLOGICAL: Gross neurological examination did not reveal any focal deficits. SKIN: No rashes. Assessment and Plan Plan: Chest pain: Atypical probably muscular skeletal with minimally elevated troponins and cardiology evaluated the patient suspicion for acute myocardial infarction is low. Patient was cleared for discharge from cardiology perspective -Bronchitis COPD with minimal exacerbation -Type 2 diabetes mellitus -Hypertension -Coronary artery disease with microinfarction patient had a CABG in the past -Continued nicotine use: Counseling was provided -History of lung cancer for which patient is following up as an outpatient had a radiation therapy in the past Plan - Discharge Summary Discharge Rx Participant: No New Discharge Prescriptions: New Azithromycin [Zithromax] 500 mg PO DAILY #5 tab Budesonide-Formot 160-4.5 Mcg [Symbicort 160-4.5 Mcg Inhaler] 2 puff INHALATION RT-BID #1 inhaler Albuterol Inhaler [Ventolin Hfa Inhaler] 1 - 2 puff INHALATION Q6HR PRN #1 inhaler PRN Reason: Shortness Of Breath Or Wheezing predniSONE 10 mg PO DAILY #30 tab Continue Furosemide [Lasix] 20 mg PO BID Citalopram Hydrobromide [CeleXA] 20 mg PO BID Cilostazol [Pletal] 50 mg PO BID ALPRAZolam [Xanax] 0.5 mg PO Q6H Clopidogrel Bisulfate [Plavix] 75 mg PO DAILY Lisinopril [Zestril] 10 mg PO DAILY Gabapentin [Neurontin] 600 mg PO TID Atenolol [Tenormin] 25 mg PO DAILY oxyCODONE-APAP 7.5-325MG [Percocet 7.5-325 mg] 1 tab PO TID Aspirin EC [Ecotrin Low Dose] 81 mg PO DAILY Levothyroxine Sodium [Synthroid] 50 mcg PO Q72H Insulin Lispro [humaLOG Kwikpen] 10 unit SQ 5XD Insulin Glargine,Hum.rec.anlog [Basaglar Kwikpen U-100] 25 - 50 unit SQ HS Insulin Lispro [humaLOG Kwikpen] See Protocol SQ 5XD Zolpidem [Ambien] 10 mg PO HS Ferrous Sulfate [Iron (65 MG Elemental)] 325 mg PO BID Discharge Medication List ALPRAZolam [Xanax] 0.5 mg PO Q6H 05/12/15 [History] Atenolol [Tenormin] 25 mg PO DAILY 05/12/15 [History] Cilostazol [Pletal] 50 mg PO BID 05/12/15 [History] Citalopram Hydrobromide [CeleXA] 20 mg PO BID 05/12/15 [History] Clopidogrel Bisulfate [Plavix] 75 mg PO DAILY 05/12/15 [History] Furosemide [Lasix] 20 mg PO BID 05/12/15 [History] Gabapentin [Neurontin] 600 mg PO TID 05/12/15 [History] Lisinopril [Zestril] 10 mg PO DAILY 05/12/15 [History] Aspirin EC [Ecotrin Low Dose] 81 mg PO DAILY 06/22/17 [History] Insulin Glargine,Hum.rec.anlog [Basaglar Kwikpen U-100] 25 - 50 unit SQ HS 06/22 [History] Insulin Lispro [humaLOG Kwikpen] 10 unit SQ 5XD 06/22/17 [History] Levothyroxine Sodium [Synthroid] 50 mcg PO Q72H 06/22/17 [History] oxyCODONE-APAP 7.5-325MG [Percocet 7.5-325 mg] 1 tab PO TID 06/22/17 [History] Ferrous Sulfate [Iron (65 MG Elemental)] 325 mg PO BID 05/19/18 [History] Insulin Lispro [humaLOG Kwikpen] See Protocol SQ 5XD 05/19/18 [History] Zolpidem [Ambien] 10 mg PO HS 05/19/18 [History] Albuterol Inhaler [Ventolin Hfa Inhaler] 1 - 2 puff INHALATION Q6HR PRN #1 inhaler 05/21/18 [Rx] Azithromycin [Zithromax] 500 mg PO DAILY #5 tab 05/21/18 [Rx] Budesonide-Formot 160-4.5 Mcg [Symbicort 160-4.5 Mcg Inhaler] 2 puff INHALATION RT-BID #1 inhaler 05/21/18 [Rx] predniSONE 10 mg PO DAILY #30 tab 05/21/18 [Rx] Follow up Appointment(s)/Referral(s): Boaz Conner DO [Primary Care Provider] - 3 Days Humble Regan MD [STAFF PHYSICIAN] - 1 Week Discharge Disposition: HOME SELF-CARE
== END 2018-05-21 16:13 | disposition home or self-care (01) | DRG 192 ==
LOC: EC 17:47 → 3SCARD 18:11
PROVIDERS: ADMIT Internal Medicine; ATTEND Internal Medicine
DX: J43.9 Emphysema, unspecified (principal); R07.89 Other chest pain; E11.51 Type 2 diabetes mellitus with diabetic peripheral angiopathy without gangrene; E78.5 Hyperlipidemia, unspecified; F17.200 Nicotine dependence, unspecified, uncomplicated; F32.9 Major depressive disorder, single episode, unspecified; R09.02 Hypoxemia; I11.9 Hypertensive heart disease without heart failure; I25.10 Atherosclerotic heart disease of native coronary artery without angina pectoris; I25.2 Old myocardial infarction; Z79.02 Long term (current) use of antithrombotics/antiplatelets; Z85.118 Personal history of other malignant neoplasm of bronchus and lung; Z79.4 Long term (current) use of insulin; Z79.82 Long term (current) use of aspirin; Z79.890 Hormone replacement therapy; Z79.899 Other long term (current) drug therapy; Z92.3 Personal history of irradiation; Z95.1 Presence of aortocoronary bypass graft; Z95.5 Presence of coronary angioplasty implant and graft; Z79.891 Long term (current) use of opiate analgesic; Z71.6 Tobacco abuse counseling
CPT/HCPCS: 36415; 71046; 80048; 80053; 80061; 82550; 82553; 83036; 83605; 84484; 85025; 85027; 85049; 85610; 85730; 87040; 93005; 93306; 94640; 94760; 96365; 96368; 99285

== ENCOUNTER 2018-09-25 14:26 | Inpatient (IN) | payer MEDICARE, BC ==
[2018-09-25] MEDS ORDERED: SODIUM CHLORIDE 0.9% 500 ML 500 ML IV STA (14:44)
[2018-09-25] MEDS ORDERED: methylPREDNISolone SOD SUCCI 125 MG/2 ML VIAL IV STA (14:44)
[2018-09-25] MEDS ORDERED: ALBUTEROL NEBULIZED 2.5 MG/3 ML INHALATION STA (14:44)
[2018-09-25] MEDS ORDERED: IPRATROPIUM 0.5 MG/2.5 ML NEBU INHALATION STA (14:44)
--- NOTE | 2018-09-25 14:48 | ED ---
General Adult HPI - General Chief complaint: Shortness of Breath Stated complaint: LENNIE Time Seen by Provider: 09/25/18 14:30 Source: patient, RN notes reviewed Mode of arrival: ambulatory Limitations: no limitations - History of Present Illness Initial comments: This is a 78-year-old male has a past medical history significant for COPD diabetes lung cancer with metastatic disease to the liver. According to the this morning the patient started having difficulty breathing and was oxygenating in the 50s on 4 L of oxygen. Patient has not had an increased cough. Patient is not complaining of any chest pain or palpitations. Patient has had no peripheral edema or calf tenderness. states there has been no recent fever or chills. Patient has had no abdominal pain there's been no nausea vomiting. There's been no headache no numbness weakness. Patient has had no lightheadedness or dizziness. According to the patient he did get weaker earlier today and fell and hurt his left knee medially. Patient did not hit his head did not his neck has no back pain chest pain or any extremity pain other than the left knee. - Related Data Home Medications Medication Instructions Recorded Confirmed ALPRAZolam [Xanax] 0.5 mg PO Q6H 05/12/15 09/25/18 Atenolol [Tenormin] 25 mg PO HS 05/12/15 09/25/18 Cilostazol [Pletal] 50 mg PO BID 05/12/15 09/25/18 Citalopram Hydrobromide [CeleXA] 20 mg PO BID 05/12/15 09/25/18 Clopidogrel Bisulfate [Plavix] 75 mg PO DAILY 05/12/15 09/25/18 Furosemide [Lasix] 20 mg PO BID 05/12/15 09/25/18 Gabapentin [Neurontin] 600 mg PO TID 05/12/15 09/25/18 Lisinopril [Zestril] 10 mg PO DAILY 05/12/15 09/25/18 Aspirin EC [Ecotrin Low Dose] 81 mg PO DAILY 06/22/17 09/25/18 Insulin Glargine,Hum.rec.anlog See Protocol SQ HS 06/22/17 09/25/18 [Basaglar Kwikpen U-100] Levothyroxine Sodium [Synthroid] 50 mcg PO Q72H 06/22/17 09/25/18 oxyCODONE-APAP 7.5-325MG [Percocet 1 tab PO QID PRN 06/22/17 09/25/18 7.5-325 mg] Ferrous Sulfate [Iron (65 MG 325 mg PO BID 05/19/18 09/25/18 Elemental)] Insulin Lispro [humaLOG Kwikpen] See Protocol SQ TID-W/MEALS 05/19/18 09/25/18 Folic Acid 1 mg PO DAILY 09/05/18 09/25/18 Zolpidem Tartrate [Ambien] 5 mg PO HS 09/05/18 09/25/18 Morphine Sulfate ER [Ms Contin] 30 mg PO Q12H 09/06/18 09/25/18 Cephalexin [Keflex] 500 mg PO QID 09/25/18 09/25/18 predniSONE See Taper PO DIRECTED 09/25/18 09/25/18 Allergies Allergy/AdvReac Type Severity Reaction Status Date / Time quetiapine [From Seroquel] AdvReac body pain Verified 09/25/18 15:07 STATINS AdvReac MUSCLE Uncoded 09/05/18 23:44 WEAKNESS Review of Systems ROS Statement: Those systems with pertinent positive or pertinent negative responses have been documented in the HPI. ROS Other: All systems not noted in ROS Statement are negative. Past Medical History Past Medical History: Cancer, COPD, CVA/TIA, Dementia, Diabetes Mellitus, Hearing Disorder / Deafness, Hyperlipidemia, Hypertension, Myocardial Infarction ([place]), Osteoarthritis (OA), Pneumonia, Vascular Disorder Additional Past Medical History / Comment(s): 2018 R lung cancer with liver mets treated with radiation and chemo therapy currently, IDDM type II, neuropathy bilateral hands/feet, slight dementia, UTI with sepsis, PVD, possible TIA with caratid surgery, spouse states pt has had 2 MIs in the past, spinal stenosis, lumbar disc disease, 2 lumbar herniated discs, hypothyroid, [place]-wears aide in R ear and 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 Last Myocardial Infarction Date:: unknown History of Any Multi-Drug Resistant Organisms: None Reported Past Surgical History: Coronary Bypass/CABG, Heart Catheterization, Heart Catheterization With Stent, Orthopedic Surgery Additional Past Surgical History / Comment(s): 2011 PTCA, 1999 CABG 3 vessels, 2017 abdominal aortic aneurysm repair, bilateral legs stented, L mastoid surgery, L knee surgery to stablilize patella, bilateral wrist ganglion cysts removed, R caratid endartectomy, bilateral cataract removals. Last stent with Dr Espinoza in 2013 Past Anesthesia/Blood Transfusion Reactions: No Reported Reaction Date of Last Stent Placement:: 2013 Past Psychological History: Anxiety, Depression Smoking Status: Current every day smoker Past Alcohol Use History: None Reported Past Drug Use History: None Reported - Past Family History Mother Family Medical History: Coronary Artery Disease (CAD) Father Family Medical History: Diabetes Mellitus General Exam - General Exam Comments Initial Comments: GENERAL: Patient is well-developed and well-nourished. Patient is nontoxic and well- hydrated and is in mild distress. ENT: Neck is soft and supple. No significant lymphadenopathy is noted. Oropharynx is clear. Moist mucous membranes. Neck has full range of motion without eliciting any pain. EYES: The sclera were anicteric and conjunctiva were pink and moist. Extraocular movements were intact and pupils were equal round and reactive to light. Eyelids were unremarkable. PULMONARY: Patient has diffuse expiratory wheezing CARDIOVASCULAR: There is a regular rate and rhythm without any murmurs gallops or rubs. ABDOMEN: Soft and nontender with normal bowel sounds. No palpable organomegaly was noted. There is no palpable pulsatile mass. SKIN: Skin is clear with no lesions or rashes and otherwise unremarkable. NEUROLOGIC: Patient is alert and oriented x3. Cranial nerves II through XII are grossly intact. Motor and sensory are also intact. Normal speech, volume and content. Symmetrical smile. MUSCULOSKELETAL: Normal extremities with adequate strength and full range of motion. LYMPHATICS: No significant lymphadenopathy is noted PSYCHIATRIC: Normal psychiatric evaluation. Limitations: no limitations Course Vital Signs 09/25/18 09/25/18 09/25/18 14:30 14:41 15:11 Temperature 98.4 F Pulse Rate 58 L 55 L Respiratory 18 18 Rate Blood Pressure 121/60 O2 Sat by Pulse 96 Oximetry 09/25/18 09/25/18 15:21 15:26 Temperature Pulse Rate 56 L 57 L Respiratory 48 H Rate Blood Pressure 91/74 O2 Sat by Pulse 96 Oximetry Medical Decision Making - Medical Decision Making EKG shows sinus bradycardia [address] interval 162 QRS is 80 QT intervals 472 QTC is 459. Patient's EKG shows no ST segment elevation or depression. Chest x-ray shows multiple infiltrates according to the radiologist could be just pulmonary fibrosis however with the patient's increased cough shortness of breath and white count I'm assuming the patient has a pneumonia at this time. Patient will be admitted. Patient received a few breathing treatments in the emergency department along with some steroids and was feeling slightly better. X-ray of the knee shows no acute abnormality. I spoke with some physicians he agreed to admit the patient admitted the patient I consulted oncology and pulmonology. - Lab Data Result diagrams: 09/25/18 15:13 09/25/18 15:13 Lab Results 09/25/18 09/25/18 09/25/18 Range/Units 15:13 15:13 15:13 WBC 16.7 H (3.8-10.6) k/uL RBC 2.90 L (4.30-5.90) m/uL Hgb 10.0 L (13.0-17.5) gm/dL Hct 30.9 L (39.0-53.0) % MCV 106.6 H (80.0-100.0) fL MCH 34.3 (25.0-35.0) pg MCHC 32.2 (31.0-37.0) g/dL RDW 14.4 (11.5-15.5) % Plt Count 400 (150-450) k/uL Neutrophils % 80 % Lymphocytes % 13 % Monocytes % 4 % Eosinophils % 2 % Basophils % 0 % Neutrophils # 13.4 H (1.3-7.7) k/uL Lymphocytes # 2.2 (1.0-4.8) k/uL Monocytes # 0.6 (0-1.0) k/uL Eosinophils # 0.4 (0-0.7) k/uL Basophils # 0.0 (0-0.2) k/uL Macrocytosis Moderate Sodium 132 L (137-145) mmol/L Potassium 4.1 (3.5-5.1) mmol/L Chloride 91 L (98-107) mmol/L Carbon Dioxide 38 H (22-30) mmol/L Anion Gap 3 mmol/L BUN 40 H (9-20) mg/dL Creatinine 1.02 (0.66-1.25) mg/dL Est GFR (CKD-EPI)AfAm 82 (>60 ml/min/1.73 sqM) Est GFR (CKD-EPI)NonAf 71 (>60 ml/min/1.73 sqM) Glucose 283 H (74-99) mg/dL Plasma Lactic Acid Chauncey 1.8 (0.7-2.0) mmol/L Calcium 8.9 (8.4-10.2) mg/dL Magnesium 2.2 (1.6-2.3) mg/dL Total Bilirubin 0.5 (0.2-1.3) mg/dL AST 24 (17-59) U/L ALT 21 (21-72) U/L Alkaline Phosphatase 94 (38-126) U/L Total Protein 5.8 L (6.3-8.2) g/dL Albumin 3.1 L (3.5-5.0) g/dL Critical Care Time Critical Care Time: Yes Total Critical Care Time: 35 Disposition Clinical Impression: Acute exacerbation of chronic obstructive airways disease, Liver metastases, Pneumonia Disposition: ADMITTED IP TO THIS HOSP Referrals: Boaz Conner DO [Primary Care Provider] - 1-2 days Time of Disposition: 15:57
[2018-09-25 15:27] LABS: Basophils % (A) 0 %; Eosinophils # (A) 0.4 k/uL (0-0.7); Eosinophils % (A) 2 %; HCT 30.9 % (39.0-53.0); Lymphocytes # (A) 2.2 k/uL (1.0-4.8); Lymphocytes % (A) 13 %; MCH 34.3 pg (25.0-35.0); MCHC 32.2 g/dL (31.0-37.0); MCV 106.6 fL (80.0-100.0); Macrocytosis Moderate; Mean Platelet Volume 7.4; Monocytes # (A) 0.6 k/uL (0-1.0); Monocytes % (A) 4 %; Neutrophils # (A) 13.4 k/uL (1.3-7.7); Neutrophils % (A) 80 %; Platelet Count 400 k/uL (150-450); RDW 14.4 % (11.5-15.5); WBC 16.7 k/uL (3.8-10.6)
[2018-09-25 15:36] LABS: Albumin 3.1 g/dL (3.5-5.0); Calcium 8.9 mg/dL (8.4-10.2); Magnesium 2.2 mg/dL (1.6-2.3); Potassium 4.1 mmol/L (3.5-5.1); Total Bilirubin 0.5 mg/dL (0.2-1.3); Total Protein 5.8 g/dL (6.3-8.2)
--- NOTE | 2018-09-25 15:45 | XR ---
EXAMINATION TYPE: XR chest 2V DATE OF EXAM: 09/25/2018 COMPARISON: 09/12/2018 HISTORY: Difficulty breathing TECHNIQUE: Frontal and lateral views of the chest are obtained. FINDINGS: There is coarse interstitial infiltrates throughout the lungs. There is right central veno us catheter with the tip in the right atrium. There are chest leads. There are sternal wires. There i s no sign of pleural effusion. IMPRESSION: Extensive coarse pulmonary interstitial infiltrate consistent with pulmonary fibrosis. T here is improvement in the pulmonary interstitial edema compared to last exam. No gross heart failure.
--- NOTE | 2018-09-25 15:46 | XR ---
EXAMINATION TYPE: XR knee complete LT DATE OF EXAM: 09/25/2018 COMPARISON: NONE HISTORY: Knee pain TECHNIQUE: 3 views FINDINGS: There is a staple in the proximal tibia. There is vascular calcification. There is narrowin g of the medial joint space. There is spurring of femoral and tibial condyles. IMPRESSION: Osteoarthritis. Previous surgery. No acute bony abnormality.
[2018-09-25] MEDS ORDERED: PIPERACILLIN-TAZOBACTAM 3.375 GM in SODIUM CHLORIDE 0.9% 100 ML IVPB STA (15:55)
[2018-09-25] MEDS ORDERED: LEVOFLOXACIN 750MG-D5W PMX 750 MG in DEXTROSE/WATER 1 150ML.BAG IVPB STA (15:58)
[2018-09-25] MEDS ORDERED: PNEUMONIA PROTOCOL UTILIZED 1 EACH MISC PO PRN (15:58)
[2018-09-25] MEDS ORDERED: IPRATROPIUM-ALBUTEROL 3 ML NEB INHALATION PRN (15:58)
[2018-09-25 16:34] LABS: Partial Thromboplastin Time 21.6 sec (22.0-30.0)
[2018-09-25 17:46] VITALS: BMI 22.1
[2018-09-25] MEDS ORDERED: ACETAMINOPHEN TAB 325 MG TAB PO PRN (18:47)
[2018-09-25] MEDS ORDERED: NALOXONE 0.4 MG/ML 1 ML VIAL IV PRN (18:47)
[2018-09-25] MEDS ORDERED: ONDANSETRON 4 MG/2 ML VIAL IVP PRN (18:47)
[2018-09-25] MEDS ORDERED: MELATONIN 3 MG TABLET PO PRN (18:47)
[2018-09-25] MEDS ORDERED: oxyCODONE-APAP 7.5-325MG 1 EACH TAB PO PRN (18:50)
[2018-09-25] MEDS ORDERED: ALBUTEROL NEBULIZED 2.5 MG/3 ML INHALATION PRN (18:58)
--- NOTE | 2018-09-25 18:58 | P.HPIM ---
History of Present Illness H&P Date: 09/25/18 Chief Complaint: shortness of breath Patient is a 78-year-old male with a past medical history of non-small cell lung cancer with metastases to the liver, hypertension, diabetes, dyslipidemia, arthritis, and coronary artery disease who presented to the ER with complaints of shortness of breath. He was recently here from 09/06 through 09/14 due to pneumonia with sepsis. He was seen by Dr. French and it was felt that this was more of a pneumonitis secondary to his immune modulating treatment for his cancer. He was discharged home on a slow oral steroid taper. He saw the nurse practitioner at Dr. French's office was decreased to 25 mg of prednisone daily. He has not yet received more Keytruda. He follow with Oncology out of [facility] Dr. Po Means. On arrival to the ER his vital signs were within normal limits. His laboratory analysis showed an elevated white blood cell count at 16.7. He was also slightly hyponatremic with a sodium of 132. Troponin was slightly elevated at 0.048 but this is resolution of his prior elevated troponin last month. Chest x-ray showed coarse pulmonary infiltrates consistent with pulmonary fibrosis and improvement in the interstitial edema compared to last exam. Knee x-ray showed no acute fracture. There was concerns for pneumonia and he was started on Levaquin and Zosyn. He was also given a dose of IV steroids and bronchodilators. He was admitted for further monitoring. Patient seen and examined at bedside with present. Apparently he has been feeling more weak for the last 2-3 days. He fell yesterday and again today. Today he started having some shortness of breath. He has felt overall tired and fatigued. His Lasix and giving out from under him. He denies any focal neuro deficits like 1 arm or 1 leg that is weak, numb, changes in speech, or difficulty swallowing. He does state that his vision has been going in and out of focus. It is usually out of focus with his blood sugars are high. Today he has had decreased appetite. His notes that he has been having some visual hallucinations for the last 3-4 days, and upset stomach with nausea, and insomnia. They note that his blood sugars have been ranging around 350. He also had a left toe injury that he sustained last week from hitting it on his bed frame. He saw the oncologist on Wednesday and was put on Keflex to prevent an infection due to immunosuppression. He denies any chest pain, palpitations, wheezing. He has a chronic cough that is unchanged. He denies any unusual diarrhea or constipation. He denies any dysuria or urinary frequency. He is having pain in his left knee and ankle after his fall today. Review of Systems Pertinent positives and negatives as discussed in HPI, a complete review of systems was performed and all other systems are negative. Past Medical History Past Medical History: Cancer, COPD, CVA/TIA, Dementia, Diabetes Mellitus, Hearing Disorder / Deafness, Hyperlipidemia, Hypertension, Myocardial Infarction ([place]), Osteoarthritis (OA), Pneumonia, Vascular Disorder Additional Past Medical History / Comment(s): 2018 R lung cancer with liver mets treated with radiation and chemo therapy currently, IDDM type II, neuropathy bilateral hands/feet, slight dementia, UTI with sepsis, PVD, possible TIA with caratid surgery, spouse states pt has had 2 MIs in the past, spinal stenosis, lumbar disc disease, 2 lumbar herniated discs, hypothyroid, [place]-wears aide in R ear and 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 Last Myocardial Infarction Date:: unknown History of Any Multi-Drug Resistant Organisms: None Reported Past Surgical History: Coronary Bypass/CABG, Heart Catheterization, Heart Catheterization With Stent, Orthopedic Surgery Additional Past Surgical History / Comment(s): 2011 PTCA, 1999 CABG 3 vessels, 2017 abdominal aortic aneurysm repair, bilateral legs stented, L mastoid surgery, L knee surgery to stablilize patella, bilateral wrist ganglion cysts removed, R caratid endartectomy, bilateral cataract removals. Last stent with Dr Espinoza in 2013 Past Anesthesia/Blood Transfusion Reactions: No Reported Reaction Date of Last Stent Placement:: 2013 Past Psychological History: Anxiety, Depression Additional Psychological History / Comment(s): Pt resides with his spouse and their son. The son is pt's caregiver, his spouse works midnights. Pt has a cane and walker but refused to use them. He no longer drives, spouse takes pt to appts. Smoking Status: Current every day smoker Past Alcohol Use History: None Reported Additional Past Alcohol Use History / Comment(s): Pt started smoking in 1957. He is a ppd smoker. Past Drug Use History: None Reported - Past Family History Mother Family Medical History: Coronary Artery Disease (CAD) Father Family Medical History: Diabetes Mellitus Medications and Allergies Home Medications Medication Instructions Recorded Confirmed Type ALPRAZolam [Xanax] 0.5 mg PO Q6H 05/12/15 09/25/18 History Atenolol [Tenormin] 25 mg PO HS 05/12/15 09/25/18 History Cilostazol [Pletal] 50 mg PO BID 05/12/15 09/25/18 History Citalopram Hydrobromide [CeleXA] 20 mg PO BID 05/12/15 09/25/18 History Clopidogrel Bisulfate [Plavix] 75 mg PO DAILY 05/12/15 09/25/18 History Furosemide [Lasix] 20 mg PO BID 05/12/15 09/25/18 History Gabapentin [Neurontin] 600 mg PO TID 05/12/15 09/25/18 History Lisinopril [Zestril] 10 mg PO DAILY 05/12/15 09/25/18 History Aspirin EC [Ecotrin Low Dose] 81 mg PO DAILY 06/22/17 09/25/18 History Insulin Glargine,Hum.rec.anlog See Protocol SQ HS 06/22/17 09/25/18 History [Basaglar Kwikpen U-100] Levothyroxine Sodium [Synthroid] 50 mcg PO Q72H 06/22/17 09/25/18 History oxyCODONE-APAP 7.5-325MG [Percocet 1 tab PO QID PRN 06/22/17 09/25/18 History 7.5-325 mg] Ferrous Sulfate [Iron (65 MG 325 mg PO BID 05/19/18 09/25/18 History Elemental)] Insulin Lispro [humaLOG Kwikpen] See Protocol SQ TID-W/MEALS 05/19/18 09/25/18 History Folic Acid 1 mg PO DAILY 09/05/18 09/25/18 History Zolpidem Tartrate [Ambien] 5 mg PO HS 09/05/18 09/25/18 History Morphine Sulfate ER [Ms Contin] 30 mg PO Q12H 09/06/18 09/25/18 History Cephalexin [Keflex] 500 mg PO QID 09/25/18 09/25/18 History predniSONE See Taper PO DIRECTED 09/25/18 09/25/18 History Allergies Allergy/AdvReac Type Severity Reaction Status Date / Time quetiapine [From Seroquel] AdvReac body pain Verified 09/25/18 15:07 STATINS AdvReac MUSCLE Uncoded 09/05/18 23:44 WEAKNESS Physical Exam Osteopathic Statement: *. No significant issues noted on an osteopathic structural exam other than those noted in the History and Physical/Consult. Vitals: Vital Signs Temp Pulse Pulse Resp BP BP Pulse Ox 09/25/18 17:20 97.9 F 88 59 L 18 130/87 159/63 99 09/25/18 16:28 98.7 F 61 18 132/55 96 09/25/18 15:26 57 L 09/25/18 15:21 56 L 48 H 91/74 96 09/25/18 15:11 55 L 09/25/18 14:41 18 09/25/18 14:30 98.4 F 58 L 18 121/60 96 Intake and Output 09/25/18 09/25/18 09/25/18 06:59 14:59 22:59 Other: Weight 78.018 kg General: non toxic, no distress, appears at stated age, normal weight Derm: Multiple areas of ecchymoses most significant over left ankle and forefoot, no unusual ecchymoses, warm, dry Head: atraumatic, normocephalic, symmetric Eyes: EOMI, no lid lag, anicteric sclera, pupils equal round reactive to light ENT: Nose and ears atraumatic, no thrush, no pharyngeal erythema Neck: No thyromegaly, no cervical lymphadenopathy, trachea midline, supple Mouth: no lip lesion, mucus membranes moist Cardiovascular: S1S2 reg, no murmur, positive posterior tibial pulse bilateral, no edema, capillary refill less than 2 seconds Lungs: course breath sounds bilateral, no rhonchi, no rales , no accessory mu scle use Abdominal: soft, nontender to palpation, no guarding, no appreciable organomegaly, normal bowel sounds Ext: left ankle and fore foot with edema and bruising, tender to palpation all over, able to move ankles and toes, no gross muscle atrophy, muscle strength 4 out of 5 in all 4 extremities grossly, no contractures, Neuro: CN II-XI grossly intact, light touch intact all 4 extremities, finger to nose within normal limits, Psych: Alert, oriented, appropriate affect Results CBC & Chem 7: 09/25/18 15:13 09/25/18 15:13 Labs: Abnormal Lab Results - Last 24 Hours (Table) 09/25/18 09/25/18 09/25/18 Range/Units 15:13 15:13 15:13 WBC 16.7 H (3.8-10.6) k/uL RBC 2.90 L (4.30-5.90) m/uL Hgb 10.0 L (13.0-17.5) gm/dL Hct 30.9 L (39.0-53.0) % MCV 106.6 H (80.0-100.0) fL Neutrophils # 13.4 H (1.3-7.7) k/uL APTT 21.6 L (22.0-30.0) sec Sodium 132 L (137-145) mmol/L Chloride 91 L (98-107) mmol/L Carbon Dioxide 38 H (22-30) mmol/L BUN 40 H (9-20) mg/dL Glucose 283 H (74-99) mg/dL Troponin I (0.000-0.034) ng/mL Total Protein 5.8 L (6.3-8.2) g/dL Albumin 3.1 L (3.5-5.0) g/dL 09/25/18 Range/Units 15:13 WBC (3.8-10.6) k/uL RBC (4.30-5.90) m/uL Hgb (13.0-17.5) gm/dL Hct (39.0-53.0) % MCV (80.0-100.0) fL Neutrophils # (1.3-7.7) k/uL APTT (22.0-30.0) sec Sodium (137-145) mmol/L Chloride (98-107) mmol/L Carbon Dioxide (22-30) mmol/L BUN (9-20) mg/dL Glucose (74-99) mg/dL Troponin I 0.048 H* (0.000-0.034) ng/mL Total Protein (6.3-8.2) g/dL Albumin (3.5-5.0) g/dL Chest x-ray: report reviewed Thrombosis Risk Factor Assmnt - DVT/VTE Prophylaxis DVT/VTE Prophylaxis: Pharmacologic Prophylaxis ordered - Choose All That Apply Any of the Below Risk Factors Present?: No Other Risk Factors: Yes Each Risk Factor Represents 2 Points: Patient confined to bed, Malignancy Each Risk Factor Represents 3 Points: Age 75 years or older Thrombosis Risk Factor Assessment Total Risk Factor Score: 7 Thrombosis Risk Factor Assessment Level: High Risk Assessment and Plan Assessment: Health care associated pneumonia, possible gram negative possible pneumonitis - bronchodilators - Zosyn, Levaquin -IV fluids -IV steroids -Pulmonary hygiene -Follow chest x-ray -Sputum culture -Pulmonary consult COPD with exacerbation -Pulmonary consult -Steroids -Bronchodilators -Pulmonary hygiene Hyponatremia likely secondary to dehydration -IV fluids -Repeat labs in a.m. -Encourage oral fluid intake Hallucinations per -Monitor for signs of hallucinations -Suspect secondary to steroid use -If worsens consult psychiatry -If worsens consider MRI brain to rule out possible metastasis Non-small cell lung cancer with metastases to the liver -Follows with oncology out of [facility] -Patient not currently on any therapy and has not been on it since early August. Diabetes mellitus type 2 with hyperglycemia -Continue with basal and bolus insulin -Follow blood sugars -Last A1c 8 09/06/18 Elevated troponin -This is actually resolving from last admission - no need to continue to follow at this point Anemia - stable and at baseline - follow CBC Chronic: Hypertension Dyslipidemia Coronary artery disease Osteoarthritis Anemia The patient is admitted with an anticipated greater than 2 midnight stay for evaluation of pneumonia. Surrogate decision-maker: CODE STATUS:full DVT prophylaxis:lovenox Discussed with: patient, nursing, ED physicians, Anticipated discharge date: 2-[address]: home A total of 65 minutes was spent on the care of this complex patient more than 50% of the time was spent in counseling and care coordination.
--- NOTE | 2018-09-25 19:07 | XR ---
EXAMINATION TYPE: XR ankle complete LT DATE OF EXAM: 09/25/2018 COMPARISON: NONE HISTORY: Pain TECHNIQUE: 3 views FINDINGS: There is nondisplaced fracture of the distal fibula. There is plantar calcaneal spurring. A nkle mortise is anatomic. There is mild soft tissue swelling over the lateral malleolus. IMPRESSION: Nondisplaced oblique fracture distal fibula.
--- NOTE | 2018-09-25 19:08 | XR ---
EXAMINATION TYPE: XR foot complete LT DATE OF EXAM: 09/25/2018 COMPARISON: NONE HISTORY: Foot pain TECHNIQUE: 3 views FINDINGS: Metatarsals are intact. There is a plantar calcaneal spur. I see no fracture nor dislocatio n. IMPRESSION: Calcaneal spurring. No fracture seen.
[2018-09-25] MEDS: SODIUM CHLORIDE 0.9% 1,000 ML IV SCH (19:22)
[2018-09-25] MEDS: MORPHINE SULFATE ER 30 MG TABLET PO SCH (20:47)
[2018-09-25] MEDS: FERROUS SULFATE 325 MG TAB PO SCH (20:47)
[2018-09-25] MEDS: ATENOLOL 25 MG TAB PO SCH (20:47)
[2018-09-25] MEDS: ALPRAZolam 0.5 MG TAB PO SCH (20:48)
[2018-09-25] MEDS: GABAPENTIN 300 MG CAP PO SCH (20:48)
[2018-09-25] MEDS: ZOLPIDEM 5 MG TAB PO SCH (20:48)
[2018-09-25] MEDS: CILOSTAZOL 100 MG TAB PO SCH (20:48)
[2018-09-25] MEDS: CITALOPRAM HYDROBROMIDE 20 MG TAB PO SCH (20:48)
[2018-09-25] MEDS: IPRATROPIUM-ALBUTEROL 3 ML NEB INHALATION SCH (20:51)
[2018-09-25 21:20] LABS: Glucose,Whole Blood 432 mg/dL (75-99)
[2018-09-25 21:20] LABS: Glucose,Whole Blood 454 mg/dL (75-99)
[2018-09-25] MEDS ORDERED: INSULIN ASPART (NovoLOG) 100 UNIT/ML VIAL SQ ONE (21:24)
[2018-09-25] MEDS: INSULIN DETEMIR (LEVEMIR) 100 UNIT/ML SYR SQ SCH (21:58)
[2018-09-25] MEDS: INSULIN ASPART (NovoLOG) 100 UNIT/ML VIAL SQ SCH (21:58)
[2018-09-25] MEDS: PIPERACILLIN-TAZOBACTAM 3.375 GM in SODIUM CHLORIDE 0.9% 100 ML IVPB SCH (23:57)
[2018-09-26] MEDS ORDERED: INSULIN ASPART (NovoLOG) 100 UNIT/ML VIAL SQ ONE (00:18)
[2018-09-26] MEDS: methylPREDNISolone SOD SUCCI 125 MG/2 ML VIAL IV SCH ×3 (00:18→12:19)
[2018-09-26 00:28] LABS: Glucose,Whole Blood 391 mg/dL (75-99)
[2018-09-26] MEDS: ALPRAZolam 0.5 MG TAB PO SCH ×3 (01:45→12:13)
[2018-09-26] MEDS: LEVOTHYROXINE 50 MCG TAB PO SCH (06:08)
[2018-09-26] MEDS: SODIUM CHLORIDE 0.9% 1,000 ML IV SCH ×2 (06:09→15:44)
[2018-09-26 07:14] LABS: Glucose,Whole Blood 174 mg/dL (75-99)
[2018-09-26] MEDS: GABAPENTIN 300 MG CAP PO SCH ×3 (07:19→20:37)
[2018-09-26] MEDS: FOLIC ACID 1 MG TAB PO SCH (07:19)
[2018-09-26] MEDS: CILOSTAZOL 100 MG TAB PO SCH ×2 (07:20→21:08)
[2018-09-26] MEDS: FERROUS SULFATE 325 MG TAB PO SCH ×2 (07:20→20:37)
[2018-09-26] MEDS: LISINOPRIL 10 MG TAB PO SCH (07:20)
[2018-09-26] MEDS: MORPHINE SULFATE ER 30 MG TABLET PO SCH ×2 (07:24→20:37)
[2018-09-26] MEDS: ASPIRIN 81 MG PO SCH (07:24)
[2018-09-26] MEDS: CITALOPRAM HYDROBROMIDE 20 MG TAB PO SCH ×2 (07:24→20:38)
--- NOTE | 2018-09-26 07:24 | XR ---
EXAMINATION TYPE: XR chest 1V portable DATE OF EXAM: 09/26/2018 Comparison: 09/25/2018 Clinical History: 78-year-old male pneumonia Findings: Right anterior chest wall injection port with catheter tip Cavoatrial junction. Multifocal patchy interstitial and patchy opacities throughout the lungs without significant change from prior. No sizable pleural effusion. Impression: Multifocal diffuse infiltrates relatively unchanged.
[2018-09-26] MEDS: ENOXAPARIN 40 MG/0.4 ML SYRINGE SQ SCH (07:25)
[2018-09-26] MEDS: INSULIN ASPART (NovoLOG) 100 UNIT/ML VIAL SQ SCH ×4 (07:25→21:08)
[2018-09-26] MEDS: PIPERACILLIN-TAZOBACTAM 3.375 GM in SODIUM CHLORIDE 0.9% 100 ML IVPB SCH ×2 (07:26→15:48)
[2018-09-26] MEDS: CLOPIDOGREL 75 MG TAB PO SCH (07:40)
[2018-09-26] MEDS: IPRATROPIUM-ALBUTEROL 3 ML NEB INHALATION SCH ×5 (09:38→21:13)
--- NOTE | 2018-09-26 10:21 | P.CNOR ---
History of Present Illness - [facility] Consult date: 09/26/18 Consult reason: fracture History of present illness: Patient is 78-year-old male who presented to [facility] with multiple medical complaints. Patient has a very detailed medical history, pertinent for lung cancer with liver metastases, recent history of pneumonia that required a significant hospital stay [facility]. Patient also had a fall yesterday at his home, he states he is utilizing his walker when he fell forward. Patient was admitted under internal medicine's care for his multiple medical comorbidities. Also x-rays were done on the patient, including left knee, left foot and left ankle. Images did find a left ankle lateral malleolus fracture. Our orthopedic team was consulted. Patient was examined today at bedside, he is resting comfortably. He notes pain on the lateral aspect of his ankle. He also notes medial sided knee pain. Patient denies any other orthopedic complaints at this time. Patient denies any previous surgery of the left ankle. Review of Systems Constitutional: Reports as per HPI Past Medical History Past Medical History: Cancer, COPD, CVA/TIA, Dementia, Diabetes Mellitus, Hearing Disorder / Deafness, Hyperlipidemia, Hypertension, Myocardial Infarction ([place]), Osteoarthritis (OA), Pneumonia, Vascular Disorder Additional Past Medical History / Comment(s): 2018 R lung cancer with liver mets treated with radiation and chemo therapy currently, IDDM type II, neuropathy bilateral hands/feet, slight dementia, UTI with sepsis, PVD, possible TIA with caratid surgery, spouse states pt has had 2 MIs in the past, spinal stenosis, lumbar disc disease, 2 lumbar herniated discs, hypothyroid, [place]-wears aide in R ear and 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 Last Myocardial Infarction Date:: unknown History of Any Multi-Drug Resistant Organisms: None Reported Past Surgical History: Coronary Bypass/CABG, Heart Catheterization, Heart Catheterization With Stent, Orthopedic Surgery Additional Past Surgical History / Comment(s): 2011 PTCA, 1999 CABG 3 vessels, 2017 abdominal aortic aneurysm repair, bilateral legs stented, L mastoid surgery, L knee surgery to stablilize patella, bilateral wrist ganglion cysts removed, R caratid endartectomy, bilateral cataract removals. Last stent with Dr Espinoza in 2013 Past Anesthesia/Blood Transfusion Reactions: No Reported Reaction Date of Last Stent Placement:: 2013 Past Psychological History: Anxiety, Depression Additional Psychological History / Comment(s): Pt resides with his spouse and their son. The son is pt's caregiver, his spouse works midnights. Pt has a cane and walker but refused to use them. He no longer drives, spouse takes pt to appts. Smoking Status: Current every day smoker Past Alcohol Use History: None Reported Additional Past Alcohol Use History / Comment(s): Pt started smoking in 1957. He is a ppd smoker. Past Drug Use History: None Reported - Past Family History Mother Family Medical History: Coronary Artery Disease (CAD) Father Family Medical History: Diabetes Mellitus Medications and Allergies Home Medications Medication Instructions Recorded Confirmed Type ALPRAZolam [Xanax] 0.5 mg PO Q6H 05/12/15 09/25/18 History Atenolol [Tenormin] 25 mg PO HS 05/12/15 09/25/18 History Cilostazol [Pletal] 50 mg PO BID 05/12/15 09/25/18 History Citalopram Hydrobromide [CeleXA] 20 mg PO BID 05/12/15 09/25/18 History Clopidogrel Bisulfate [Plavix] 75 mg PO DAILY 05/12/15 09/25/18 History Furosemide [Lasix] 20 mg PO BID 05/12/15 09/25/18 History Gabapentin [Neurontin] 600 mg PO TID 05/12/15 09/25/18 History Lisinopril [Zestril] 10 mg PO DAILY 05/12/15 09/25/18 History Aspirin EC [Ecotrin Low Dose] 81 mg PO DAILY 06/22/17 09/25/18 History Insulin Glargine,Hum.rec.anlog See Protocol SQ HS 06/22/17 09/25/18 History [Basaglar Kwikpen U-100] Levothyroxine Sodium [Synthroid] 50 mcg PO Q72H 06/22/17 09/25/18 History oxyCODONE-APAP 7.5-325MG [Percocet 1 tab PO QID PRN 06/22/17 09/25/18 History 7.5-325 mg] Ferrous Sulfate [Iron (65 MG 325 mg PO BID 05/19/18 09/25/18 History Elemental)] Insulin Lispro [humaLOG Kwikpen] See Protocol SQ TID-W/MEALS 05/19/18 09/25/18 History Folic Acid 1 mg PO DAILY 09/05/18 09/25/18 History Zolpidem Tartrate [Ambien] 5 mg PO HS 09/05/18 09/25/18 History Morphine Sulfate ER [Ms Contin] 30 mg PO Q12H 09/06/18 09/25/18 History Cephalexin [Keflex] 500 mg PO QID 09/25/18 09/25/18 History predniSONE See Taper PO DIRECTED 09/25/18 09/25/18 History Allergies Allergy/AdvReac Type Severity Reaction Status Date / Time quetiapine [From Seroquel] AdvReac body pain Verified 09/25/18 15:07 STATINS AdvReac MUSCLE Uncoded 09/05/18 23:44 WEAKNESS Physical Examination Left lower extremity: No obvious open lesions or sores present throughout the extremity Obvious scars present around the left knee Obvious bruising and swelling noted around the ankle and foot Tenderness with palpation over the lateral malleolus, no tenderness over the medial malleolus No effusion is present over the knee, he has significant tenderness along the medial joint line of the knee Logroll maneuver the hip reproduces no pain Sensation to light touch throughout the extremities intact, dorsal pedis pulses 2+ Results - Labs Labs: Abnormal Lab Results - Last 24 Hours (Table) 09/25/18 09/25/18 09/25/18 Range/Units 15:13 15:13 15:13 WBC 16.7 H (3.8-10.6) k/uL RBC 2.90 L (4.30-5.90) m/uL Hgb 10.0 L (13.0-17.5) gm/dL Hct 30.9 L (39.0-53.0) % MCV 106.6 H (80.0-100.0) fL Neutrophils # 13.4 H (1.3-7.7) k/uL APTT 21.6 L (22.0-30.0) sec Sodium 132 L (137-145) mmol/L Chloride 91 L (98-107) mmol/L Carbon Dioxide 38 H (22-30) mmol/L BUN 40 H (9-20) mg/dL Glucose 283 H (74-99) mg/dL POC Glucose (mg/dL) (75-99) mg/dL Troponin I (0.000-0.034) ng/mL Total Protein 5.8 L (6.3-8.2) g/dL Albumin 3.1 L (3.5-5.0) g/dL 09/25/18 09/25/18 09/25/18 Range/Units 15:13 21:16 21:17 WBC (3.8-10.6) k/uL RBC (4.30-5.90) m/uL Hgb (13.0-17.5) gm/dL Hct (39.0-53.0) % MCV (80.0-100.0) fL Neutrophils # (1.3-7.7) k/uL APTT (22.0-30.0) sec Sodium (137-145) mmol/L Chloride (98-107) mmol/L Carbon Dioxide (22-30) mmol/L BUN (9-20) mg/dL Glucose (74-99) mg/dL POC Glucose (mg/dL) 432 H 454 H (75-99) mg/dL Troponin I 0.048 H* (0.000-0.034) ng/mL Total Protein (6.3-8.2) g/dL Albumin (3.5-5.0) g/dL 09/26/18 09/26/18 Range/Units 00:16 07:02 WBC (3.8-10.6) k/uL RBC (4.30-5.90) m/uL Hgb (13.0-17.5) gm/dL Hct (39.0-53.0) % MCV (80.0-100.0) fL Neutrophils # (1.3-7.7) k/uL APTT (22.0-30.0) sec Sodium (137-145) mmol/L Chloride (98-107) mmol/L Carbon Dioxide (22-30) mmol/L BUN (9-20) mg/dL Glucose (74-99) mg/dL POC Glucose (mg/dL) 391 H 174 H (75-99) mg/dL Troponin I (0.000-0.034) ng/mL Total Protein (6.3-8.2) g/dL Albumin (3.5-5.0) g/dL H & H 09/25/18 Range/Units 15:13 Hgb 10.0 L (13.0-17.5) gm/dL Hct 30.9 L (39.0-53.0) % Coagulation 09/25/18 Range/Units 15:13 INR 1.0 (<1.2) Result Diagrams: 09/25/18 15:13 09/25/18 15:13 - Diagnostic results Knee x-ray: report reviewed, image reviewed Ankle/Foot x-ray: report reviewed, image reviewed Assessment and Plan Plan: Imaging: Multiple x-rays were done of the left lower extremity, including foot, ankle and knee. Images of the ankle demonstrate a minimally displaced left lateral malleolus fracture. The mortise joint remains intact. X-rays of the knee demonstrate no fractures or dislocations, evidence of medial joint osteoarthritis. Assessment: 1. Left ankle lateral malleolus fracture 2. Status post fall from standing 3. Left knee contusion 4. Left knee osteoarthritis 5. Multiple medical comorbidities Plan: I was able to discuss the case, including the physical exam findings and imaging studies my attending Dr. Parada. Nor orthopedic surgical intervention needed at this time. A prescription has been placed for a Cam Walker boot, patient may weight-bear as tolerated with walker Physical therapy evaluation Pain control via primary medical service GI and DVT prophylaxis via primary medical service Other medical technologist blood bank recommendations We'll be available for any further questions regarding patient Time with Patient: Less than 30
[2018-09-26 11:19] LABS: Glucose,Whole Blood 255 mg/dL (75-99)
[2018-09-26] MEDS: guaiFENesin 600 MG TABLET.ER PO SCH ×2 (12:12→20:37)
[2018-09-26 13:05] LABS: Calcium 8.1 mg/dL (8.4-10.2); Magnesium 2.4 mg/dL (1.6-2.3); Potassium 4.4 mmol/L (3.5-5.1)
[2018-09-26 13:19] LABS: Basophils % (A) 0 %; Eosinophils % (A) 0 %; HCT 25.1 % (39.0-53.0); Lymphocytes # (A) 0.5 k/uL (1.0-4.8); Lymphocytes % (A) 5 %; MCHC 32.7 g/dL (31.0-37.0); MCV 107.1 fL (80.0-100.0); Macrocytosis Moderate; Mean Platelet Volume 8.1; Monocytes # (A) 0.5 k/uL (0-1.0); Monocytes % (A) 5 %; Neutrophils # (A) 9.4 k/uL (1.3-7.7); Neutrophils % (A) 90 %; Platelet Count 325 k/uL (150-450); RBC 2.34 m/uL (4.30-5.90); WBC 10.4 k/uL (3.8-10.6)
[2018-09-26 13:20] LABS: HGB 8.2 gm/dL (13.0-17.5)
[2018-09-26] MEDS: methylPREDNISolone SOD SUCCI 40 MG/ML 1 ML VIAL IV SCH (15:44)
[2018-09-26 17:06] LABS: Glucose,Whole Blood 268 mg/dL (75-99)
--- NOTE | 2018-09-26 20:18 | P.CNPUL ---
History of Present Illness Consult date: 09/25/18 Reason for consult: dyspnea, cough, COPD, hypoxemia Chief complaint: Family brought him into the hospital with confusion History of present illness: This is a 78-year-old male with non-small cell lung cancer with metastases to the liver kidneys has other medical problems including diabetes hypertension he has a lung cancer with the chemotherapy he was having acute lung injury and ARDS he was on 12 L oxygen he was treated with low-dose prednisone developed severe problems with confusion and agitation and brought into the hospital by family, He fell yesterday and again today. Today he started having some shortness of breath. He has felt overall tired and fatigued. His Lasix and giving out from under him. He denies any focal neuro deficits like 1 arm or 1 leg that is weak, numb, changes in speech, or difficulty swallowing. He does state that his vision has been going in and out of focus. It is usually out of focus with his blood sugars are high. Today he has had decreased appetite. His notes that he has been having some visual hallucinations for the last 3-4 days, and upset stomach with nausea, and insomnia. They note that his blood sugars have been ranging around 350. He also had a left toe injury that he sustained last week from hitting it on his bed frame. He saw the oncologist on Wednesday and was put on Keflex to prevent an infection due to immunosuppression. He denies any chest pain, palpitations, wheezing. He has a chronic cough that is unchanged. He denies any unusual diar liz or constipation. He denies any dysuria or urinary frequency. Review of Systems All systems: negative Past Medical History Past Medical History: Cancer, COPD, CVA/TIA, Dementia, Diabetes Mellitus, Hearing Disorder / Deafness, Hyperlipidemia, Hypertension, Myocardial Infarction ([place]), Osteoarthritis (OA), Pneumonia, Vascular Disorder Additional Past Medical History / Comment(s): 2018 R lung cancer with liver mets treated with radiation and chemo therapy currently, IDDM type II, neuropathy bilateral hands/feet, slight dementia, UTI with sepsis, PVD, possible TIA with caratid surgery, spouse states pt has had 2 MIs in the past, spinal stenosis, lumbar disc disease, 2 lumbar herniated discs, hypothyroid, [place]-wears aide in R ear and 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 Last Myocardial Infarction Date:: unknown History of Any Multi-Drug Resistant Organisms: None Reported Past Surgical History: Coronary Bypass/CABG, Heart Catheterization, Heart Catheterization With Stent, Orthopedic Surgery Additional Past Surgical History / Comment(s): 2011 PTCA, 1999 CABG 3 vessels, 2017 abdominal aortic aneurysm repair, bilateral legs stented, L mastoid surgery, L knee surgery to stablilize patella, bilateral wrist ganglion cysts removed, R caratid endartectomy, bilateral cataract removals. Last stent with Dr Espinoza in 2013 Past Anesthesia/Blood Transfusion Reactions: No Reported Reaction Date of Last Stent Placement:: 2013 Past Psychological History: Anxiety, Depression Additional Psychological History / Comment(s): Pt resides with his spouse and their son. The son is pt's caregiver, his spouse works midnights. Pt has a cane and walker but refused to use them. He no longer drives, spouse takes pt to appts. Smoking Status: Current every day smoker Past Alcohol Use History: None Reported Additional Past Alcohol Use History / Comment(s): Pt started smoking in 1956. He is a ppd smoker. Past Drug Use History: None Reported - Past Family History Mother Family Medical History: Coronary Artery Disease (CAD) Father Family Medical History: Diabetes Mellitus Medications and Allergies Home Medications Medication Instructions Recorded Confirmed Type ALPRAZolam [Xanax] 0.5 mg PO Q6H 05/12/15 09/25/18 History Atenolol [Tenormin] 25 mg PO HS 05/12/15 09/25/18 History Cilostazol [Pletal] 50 mg PO BID 05/12/15 09/25/18 History Citalopram Hydrobromide [CeleXA] 20 mg PO BID 05/12/15 09/25/18 History Clopidogrel Bisulfate [Plavix] 75 mg PO DAILY 05/12/15 09/25/18 History Furosemide [Lasix] 20 mg PO BID 05/12/15 09/25/18 History Gabapentin [Neurontin] 600 mg PO TID 05/12/15 09/25/18 History Lisinopril [Zestril] 10 mg PO DAILY 05/12/15 09/25/18 History Aspirin EC [Ecotrin Low Dose] 81 mg PO DAILY 06/22/17 09/25/18 History Insulin Glargine,Hum.rec.anlog See Protocol SQ HS 06/22/17 09/25/18 History [Basaglar Kwikpen U-100] Levothyroxine Sodium [Synthroid] 50 mcg PO Q72H 06/22/17 09/25/18 History oxyCODONE-APAP 7.5-325MG [Percocet 1 tab PO QID PRN 06/22/17 09/25/18 History 7.5-325 mg] Ferrous Sulfate [Iron (65 MG 325 mg PO BID 05/19/18 09/25/18 History Elemental)] Insulin Lispro [humaLOG Kwikpen] See Protocol SQ TID-W/MEALS 05/19/18 09/25/18 History Folic Acid 1 mg PO DAILY 09/05/18 09/25/18 History Zolpidem Tartrate [Ambien] 5 mg PO HS 09/05/18 09/25/18 History Morphine Sulfate ER [Ms Contin] 30 mg PO Q12H 09/06/18 09/25/18 History Cephalexin [Keflex] 500 mg PO QID 09/25/18 09/25/18 History predniSONE See Taper PO DIRECTED 09/25/18 09/25/18 History Allergies Allergy/AdvReac Type Severity Reaction Status Date / Time quetiapine [From Seroquel] AdvReac body pain Verified 09/25/18 15:07 STATINS AdvReac MUSCLE Uncoded 09/05/18 23:44 WEAKNESS Physical Exam Vitals: Vital Signs Temp Pulse Pulse Resp BP BP Pulse Ox 09/25/18 21:07 64 09/25/18 20:51 60 98 09/25/18 17:20 97.9 F 88 59 L 18 130/87 159/63 99 09/25/18 16:28 98.7 F 61 18 132/55 96 09/25/18 15:26 57 L 09/25/18 15:21 56 L 48 H 91/74 96 09/25/18 15:11 55 L 09/25/18 14:41 18 09/25/18 14:30 98.4 F 58 L 18 121/60 96 Intake and Output 09/25/18 09/25/18 09/26/18 14:59 22:59 06:59 Other: Weight 78.018 kg - Constitutional General appearance: average body habitus, cooperative, disheveled, no acute distress - EENT Eyes: EOMI, PERRLA, poor dentition Ears: bilateral: normal - Neck Neck: normal ROM Carotids: bilateral: upstroke normal, bruit absent Thyroid: bilateral: normal size - Respiratory Respiratory: bilateral: CTA - Cardiovascular Rhythm: regular Heart sounds: normal: S1, S2 - Gastrointestinal General gastrointestinal: decreased bowel sounds - Integumentary Integumentary: normal turgor - Neurologic Neurologic: CNII-XII intact - Musculoskeletal Musculoskeletal: gait normal, generalized weakness, strength equal bilaterally - Psychiatric Psychiatric: A&O x's 3, appropriate affect Results - Laboratory Findings CBC and BMP: 09/26/18 12:16 09/26/18 12:16 PT/INR, D-dimer PT 11.0 sec (9.0-12.0) 09/25/18 15:13 INR 1.0 (<1.2) 09/25/18 15:13 Abnormal lab findings: Abnormal Labs 09/25/18 09/25/18 09/25/18 15:13 15:13 15:13 WBC 16.7 H RBC 2.90 L Hgb 10.0 L Hct 30.9 L MCV 106.6 H Neutrophils # 13.4 H APTT 21.6 L Sodium 132 L Chloride 91 L Carbon Dioxide 38 H BUN 40 H Glucose 283 H POC Glucose (mg/dL) Troponin I Total Protein 5.8 L Albumin 3.1 L 09/25/18 09/25/18 09/25/18 15:13 21:16 21:17 WBC RBC Hgb Hct MCV Neutrophils # APTT Sodium Chloride Carbon Dioxide BUN Glucose POC Glucose (mg/dL) 432 H 454 H Troponin I 0.048 H* Total Protein Albumin - Diagnostic Findings Chest x-ray: report reviewed, image reviewed (Diffuse pulmonary fibrosis) Assessment and Plan Assessment: Pulmonary fibrosis Acute hypoxic on chronic respiratory failure Visual hallucinations COPD exacerbation Hyponatremia Left ankle lateral malleolar fracture Plan: Gentle rehydration Broad-spectrum antibiotics Hold his steroids Bronchodilators Further recommendations pending plan of care as per clinical response of the patient Time with Patient: Greater than 30
--- NOTE | 2018-09-26 20:24 | P.PN ---
Subjective Progress Note Date: 09/26/18 Principal diagnosis: Pulmonary fibrosis, acute on chronic hypoxic respiratory failure visual hallucination COPD exacerbation and hyponatremia non-small cell lung cancer stage IV 09/26/2018, patient seen and evaluated examined during the rounds he is doing better in terms of mentation less confused breathing better he remains on supplemental oxygen, currently is on 4 L has a cannula saturation is 95-96%, denies any cough or sputum production denies any chest pain, his labs showed white cell count of 10,400 without healthcare associated pneumonia more appeared to be a chronic process or drug related This is a 78-year-old male with non-small cell lung cancer with metastases to the liver kidneys has other medical problems including diabetes hypertension he has a lung cancer with the chemotherapy he was having acute lung injury and ARDS he was on 12 L oxygen he was treated with low-dose prednisone developed severe problems with confusion and agitation and brought into the hospital by family, He fell yesterday and again today. Today he started having some shortness of breath. He has felt overall tired and fatigued. His Lasix and giving out from under him. He denies any focal neuro deficits like 1 arm or 1 leg that is weak, numb, changes in speech, or difficulty swallowing. He does state that his vision has been going in and out of focus. It is usually out of focus with his blood sugars are high. Today he has had decreased appetite. His notes that he has been having some visual hallucinations for the last 3-4 days, and upset stomach with nausea, and insomnia. They note that his blood sugars have been ranging around 350. He also had a left toe injury that he sustained last week from hitting it on his bed frame. He saw the oncologist on Wednesday and was put on Keflex to prevent an infection due to immunosuppression. He denies any chest pain, palpitations, wheezing. He has a chronic cough that is unchanged. He denies any unusual diarrhea or constipation. He denies any dysuria or urinary frequency. Objective - Vital Signs Vital signs: Vital Signs Temp 98.1 F 09/26/18 16:05 Pulse 68 09/26/18 17:48 Resp 16 09/26/18 17:38 BP 114/54 09/26/18 16:05 Pulse Ox 95 09/26/18 17:38 Intake & Output 09/26/18 09/26/18 09/27/18 06:59 18:59 06:59 Intake Total 300 Output Total 1600 Balance -1300 Weight 78.018 kg Intake: Oral 300 Output: Urine 1600 Other: Voiding Method Urinal # Voids 1 0 - Exam - Constitutional General appearance: average body habitus, cooperative, disheveled, no acute distress - EENT Eyes: EOMI, PERRLA, poor dentition Ears: bilateral: normal - Neck Neck: normal ROM Carotids: bilateral: upstroke normal, bruit absent Thyroid: bilateral: normal size - Respiratory Respiratory: bilateral: CTA - Cardiovascular Rhythm: regular Heart sounds: normal: S1, S2 - Gastrointestinal General gastrointestinal: decreased bowel sounds - Integumentary Integumentary: normal turgor - Neurologic Neurologic: CNII-XII intact - Musculoskeletal Musculoskeletal: gait normal, generalized weakness, strength equal bilaterally - Psychiatric Psychiatric: A&O x's 3, appropriate affect - Labs CBC & Chem 7: 09/26/18 12:16 09/26/18 12:16 Labs: Abnormal Lab Results - Last 24 Hours (Table) 09/25/18 09/25/18 09/26/18 Range/Units 21:16 21:17 00:16 RBC (4.30-5.90) m/uL Hgb (13.0-17.5) gm/dL Hct (39.0-53.0) % MCV (80.0-100.0) fL Neutrophils # (1.3-7.7) k/uL Lymphocytes # (1.0-4.8) k/uL Sodium (137-145) mmol/L Chloride (98-107) mmol/L Carbon Dioxide (22-30) mmol/L BUN (9-20) mg/dL Glucose (74-99) mg/dL POC Glucose (mg/dL) 432 H 454 H 391 H (75-99) mg/dL Calcium (8.4-10.2) mg/dL Magnesium (1.6-2.3) mg/dL 09/26/18 09/26/18 09/26/18 Range/Units 07:02 11:17 12:16 RBC 2.34 L (4.30-5.90) m/uL Hgb 8.2 L D (13.0-17.5) gm/dL Hct 25.1 L (39.0-53.0) % MCV 107.1 H (80.0-100.0) fL Neutrophils # 9.4 H (1.3-7.7) k/uL Lymphocytes # 0.5 L (1.0-4.8) k/uL Sodium (137-145) mmol/L Chloride (98-107) mmol/L Carbon Dioxide (22-30) mmol/L BUN (9-20) mg/dL Glucose (74-99) mg/dL POC Glucose (mg/dL) 174 H 255 H (75-99) mg/dL Calcium (8.4-10.2) mg/dL Magnesium (1.6-2.3) mg/dL 09/26/18 09/26/18 Range/Units 12:16 16:57 RBC (4.30-5.90) m/uL Hgb (13.0-17.5) gm/dL Hct (39.0-53.0) % MCV (80.0-100.0) fL Neutrophils # (1.3-7.7) k/uL Lymphocytes # (1.0-4.8) k/uL Sodium 134 L (137-145) mmol/L Chloride 96 L (98-107) mmol/L Carbon Dioxide 34 H (22-30) mmol/L BUN 33 H (9-20) mg/dL Glucose 208 H (74-99) mg/dL POC Glucose (mg/dL) 268 H (75-99) mg/dL Calcium 8.1 L (8.4-10.2) mg/dL Magnesium 2.4 H (1.6-2.3) mg/dL Microbiology - Last 24 Hours (Table) 09/25/18 15:13 Blood Culture - Preliminary Blood No Growth after 24 hours Assessment and Plan Assessment: Pulmonary fibrosis Acute hypoxic on chronic respiratory failure Visual hallucinations COPD exacerbation Hyponatremia Left ankle lateral malleolar fracture Plan: Gentle rehydration Broad-spectrum antibiotics can be discontinued after 2-3 day of therapy and observe off of antibiotics afterwards Monitor off of his prednisone, IV steroids appeared to be tolerating very well Bronchodilators Further recommendations pending plan of care as per clinical response of the patient Time with Patient: Greater than 30
[2018-09-26] MEDS: ZOLPIDEM 5 MG TAB PO SCH (20:37)
[2018-09-26] MEDS: ATENOLOL 25 MG TAB PO SCH (20:37)
[2018-09-26] MEDS: INSULIN DETEMIR (LEVEMIR) 100 UNIT/ML SYR SQ SCH (20:39)
[2018-09-26 20:50] LABS: Glucose,Whole Blood 317 mg/dL (75-99)
[2018-09-26] MEDS ORDERED: LEVOFLOXACIN 750MG-D5W PMX 750 MG in DEXTROSE/WATER 1 150ML.BAG IVPB SCH (21:00)
[2018-09-27] MEDS: methylPREDNISolone SOD SUCCI 40 MG/ML 1 ML VIAL IV SCH ×2 (00:02→07:36)
[2018-09-27] MEDS: PIPERACILLIN-TAZOBACTAM 3.375 GM in SODIUM CHLORIDE 0.9% 100 ML IVPB SCH ×3 (00:03→15:50)
--- NOTE | 2018-09-27 00:14 | P.PN ---
Progress Note - Text Progress Note Date: 09/26/18 Presenting complaint: Tired Interval history: Patient admitted with pneumonia and COPD exacerbation, low sodium. Has underlying non-small cell lung cancer with metastasis, being followed at [facility]-. Has a cough. A bit congested. Not bringing up any sputum. Did tolerate her diet. Some wheezing. . Review of systems: Was done for constitutional, cardiovascular, GI, pulmonary. relevant finding as above Current medications are reviewed and include: DuoNeb, IV Solu-Medrol, IV Zosyn, On examination: VITAL SIGNS: 97.7, 51, 16, 154/65, 97% on 4 L GENERAL APPEARANCE: . Laying in bed, tired appearing HEENT: Normal external appearance of nose and ear. Oral cavity normal EYES: Pupils equal. Conjunctiva pale NECK: JVD unable to assess. Mass not palpable. RESPIRATORY: Respiratory effort increased Decreased breath sounds. Some crackles CARDIOVASCULAR: First and second sounds normal. No edema. ABDOMEN: Soft. Liver and spleen not palpable. No tenderness. No mass palpable. PSYCHIATRY: Patient able to answer simple questions Investigations: White count 10.4, hemoglobin 8.2, potassium 4.4, BUN 33, creatinine 0.97 Accu-Cheks noted Chest x-ray film personally reviewed by me shows some scattered infiltrates Assessment: -Pneumonia suspect gram-negative organism , POA. -Acute hypoxic respiratory failure felt to be combination of COPD/pneumonia -Bilateral pneumonitis probably secondary to chemotherapy and radiation, as determined of loss admission -Non-small cell lung cancer with metastatic, getting radiation and chemotherapy -Macrocytic anemia likely from underlying malignancy -COPD in a current smoker -Chronic nicotine dependence patient active cigarette smoker -Diabetes mellitus type 2 uncontrolled hyperglycemia, -Primary osteoarthritis -Coronary artery disease with prior history of [place] -Hypothyroid -Chronic urinary incontinence -Essential hypertension -Hyperlipidemia -Peripheral artery disease with peripheral stents -Chronic pain for which patient is on MS Contin and Percocet - chronic congestive heart exacerbation from diastolic dysfunction from underl thad coronary artery disease -Moderate tricuspid regurgitation nonrheumatic Plan: Continue current medication treatment plan. We'll await input from pulmonary. We'll also get oncology input. To clarify patient's treatment status. Patient remains on bronchodilators, steroids, and IV Zosyn.
[2018-09-27] MEDS: IPRATROPIUM-ALBUTEROL 3 ML NEB INHALATION SCH ×7 (00:26→22:09)
[2018-09-27] MEDS: SODIUM CHLORIDE 0.9% 1,000 ML IV SCH ×3 (04:58→20:07)
[2018-09-27 07:12] LABS: Glucose,Whole Blood 109 mg/dL (75-99)
[2018-09-27] MEDS: INSULIN ASPART (NovoLOG) 100 UNIT/ML VIAL SQ SCH ×4 (07:31→20:54)
[2018-09-27] MEDS: guaiFENesin 600 MG TABLET.ER PO SCH ×2 (07:31→20:05)
[2018-09-27] MEDS: LISINOPRIL 10 MG TAB PO SCH (07:32)
[2018-09-27] MEDS: FERROUS SULFATE 325 MG TAB PO SCH ×2 (07:32→20:05)
[2018-09-27] MEDS: ASPIRIN 81 MG PO SCH (07:32)
[2018-09-27] MEDS: GABAPENTIN 300 MG CAP PO SCH ×3 (07:32→20:06)
[2018-09-27] MEDS: CLOPIDOGREL 75 MG TAB PO SCH (07:32)
[2018-09-27] MEDS: CITALOPRAM HYDROBROMIDE 20 MG TAB PO SCH ×2 (07:32→20:05)
[2018-09-27] MEDS: FOLIC ACID 1 MG TAB PO SCH (07:32)
[2018-09-27] MEDS: CILOSTAZOL 100 MG TAB PO SCH ×2 (07:33→20:53)
[2018-09-27] MEDS: MORPHINE SULFATE ER 30 MG TABLET PO SCH ×2 (07:34→20:05)
[2018-09-27] MEDS: ENOXAPARIN 40 MG/0.4 ML SYRINGE SQ SCH (07:36)
[2018-09-27] MEDS: ALPRAZolam 0.5 MG TAB PO PRN ×3 (10:21→20:54)
[2018-09-27] MEDS ORDERED: predniSONE 20 MG TAB PO SCH (11:00)
[2018-09-27 12:12] LABS: Glucose,Whole Blood 229 mg/dL (75-99)
--- NOTE | 2018-09-27 13:01 | P.PN ---
Subjective Progress Note Date: 09/27/18 Principal diagnosis: Pulmonary fibrosis, acute on chronic hypoxic respiratory failure visual hallucination COPD exacerbation and hyponatremia non-small cell lung cancer stage IV 09/27/2018, patient seen eval reexamined during the rounds, now patient have a sitter as he is extremely agitated and restless, the oxygen is decreased to 3 L a cannula oxygen saturation is 94% denies any chest pain, his last chest x-ray from yesterday is reviewed 09/26/2018, patient seen and evaluated examined during the rounds he is doing better in terms of mentation less confused breathing better he remains on supplemental oxygen, currently is on 4 L has a cannula saturation is 95-96%, denies any cough or sputum production denies any chest pain, his labs showed white cell count of 10,400 without healthcare associated pneumonia more appeared to be a chronic process or drug related This is a 78-year-old male with non-small cell lung cancer with metastases to the liver kidneys has other medical problems including diabetes hypertension he has a lung cancer with the chemotherapy he was having acute lung injury and ARDS he was on 12 L oxygen he was treated with low-dose prednisone developed severe problems with confusion and agitation and brought into the hospital by family, He fell yesterday and again today. Today he started having some shortness of breath. He has felt overall tired and fatigued. His Lasix and giving out from under him. He denies any focal neuro deficits like 1 arm or 1 leg that is weak, numb, changes in speech, or difficulty swallowing. He does state that his vision has been going in and out of focus. It is usually out of focus with his blood sugars are high. Today he has had decreased appetite. His notes that he has been having some visual hallucinations for the last 3-4 days, and upset stomach with nausea, and insomnia. They note that his blood sugars have been ranging around 350. He also had a left toe injury that he sustained last week from hitting it on his bed frame. He saw the oncologist on Wednesday and was put on Keflex to prevent an infection due to immunosuppression. He denies any chest pain, palpitations, wheezing. He has a chronic cough that is unchanged. He denies any unusual diarrhea or constipation. He denies any dysuria or urinary frequency. Objective - Vital Signs Vital signs: Vital Signs Temp 98.5 F 09/27/18 12:17 Pulse 65 09/27/18 12:17 Resp 20 09/27/18 12:17 BP 153/59 09/27/18 12:17 Pulse Ox 94 L 09/27/18 12:17 Intake & Output 09/26/18 09/27/18 09/27/18 18:59 06:59 18:59 Intake Total 300 Output Total 900 Balance -600 Weight 78.018 kg Intake: Oral 300 Output: Urine 900 Other: Voiding Method Urinal Diaper Incontinent # Voids 0 0 # Bowel Movements 0 - Exam - Constitutional General appearance: average body habitus, cooperative, disheveled, no acute distress - EENT Eyes: EOMI, PERRLA, poor dentition Ears: bilateral: normal - Neck Neck: normal ROM Carotids: bilateral: upstroke normal, bruit absent Thyroid: bilateral: normal size - Respiratory Respiratory: bilateral: CTA - Cardiovascular Rhythm: regular Heart sounds: normal: S1, S2 - Gastrointestinal General gastrointestinal: decreased bowel sounds - Integumentary Integumentary: normal turgor - Neurologic Neurologic: CNII-XII intact - Musculoskeletal Musculoskeletal: gait normal, generalized weakness, strength equal bilaterally - Psychiatric Psychiatric: A&O x's 3, appropriate affect - Labs CBC & Chem 7: 09/26/18 12:16 09/26/18 12:16 Labs: Abnormal Lab Results - Last 24 Hours (Table) 09/26/18 09/26/18 09/26/18 Range/Units 12:16 12:16 16:57 RBC 2.34 L (4.30-5.90) m/uL Hgb 8.2 L D (13.0-17.5) gm/dL Hct 25.1 L (39.0-53.0) % MCV 107.1 H (80.0-100.0) fL Neutrophils # 9.4 H (1.3-7.7) k/uL Lymphocytes # 0.5 L (1.0-4.8) k/uL Sodium 134 L (137-145) mmol/L Chloride 96 L (98-107) mmol/L Carbon Dioxide 34 H (22-30) mmol/L BUN 33 H (9-20) mg/dL Glucose 208 H (74-99) mg/dL POC Glucose (mg/dL) 268 H (75-99) mg/dL Calcium 8.1 L (8.4-10.2) mg/dL Magnesium 2.4 H (1.6-2.3) mg/dL 09/26/18 09/27/18 09/27/18 Range/Units 20:48 07:10 11:55 RBC (4.30-5.90) m/uL Hgb (13.0-17.5) gm/dL Hct (39.0-53.0) % MCV (80.0-100.0) fL Neutrophils # (1.3-7.7) k/uL Lymphocytes # (1.0-4.8) k/uL Sodium (137-145) mmol/L Chloride (98-107) mmol/L Carbon Dioxide (22-30) mmol/L BUN (9-20) mg/dL Glucose (74-99) mg/dL POC Glucose (mg/dL) 317 H 109 H 229 H (75-99) mg/dL Calcium (8.4-10.2) mg/dL Magnesium (1.6-2.3) mg/dL Microbiology - Last 24 Hours (Table) 09/25/18 15:13 Blood Culture - Preliminary Blood No Growth after 24 hours Assessment and Plan Assessment: Pulmonary fibrosis Acute hypoxic on chronic respiratory failure Visual hallucinations COPD exacerbation Hyponatremia Left ankle lateral malleolar fracture Bilateral pneumonia Plan: Continue antibiotics Gentle rehydration Broad-spectrum antibiotics can be discontinued after 2-3 day of therapy and observe off of antibiotics afterwards We will decrease prednisone to 20 mg Bronchodilators Send a sputum from Gram stain and culture Further recommendations pending plan of care as per clinical response of the patient Time with Patient: Greater than 30
[2018-09-27 16:41] LABS: Basophils % (A) 0 %; Eosinophils % (A) 0 %; HCT 25.4 % (39.0-53.0); HGB 8.4 gm/dL (13.0-17.5); Lymphocytes # (A) 0.5 k/uL (1.0-4.8); Lymphocytes % (A) 4 %; MCH 35.5 pg (25.0-35.0); MCHC 32.9 g/dL (31.0-37.0); MCV 107.9 fL (80.0-100.0); Mean Platelet Volume 7.8; Monocytes # (A) 0.6 k/uL (0-1.0); Monocytes % (A) 5 %; Neutrophils # (A) 12.8 k/uL (1.3-7.7); Neutrophils % (A) 91 %; Platelet Count 317 k/uL (150-450); RBC 2.36 m/uL (4.30-5.90); RDW 15.2 % (11.5-15.5); WBC 14.1 k/uL (3.8-10.6)
[2018-09-27 16:48] LABS: ALT 22 U/L (21-72); AST 30 U/L (17-59); African American GFR (CKD) >90 (>60 ml/min/1.73 sqM); Albumin 2.8 g/dL (3.5-5.0); Alkaline Phosphatase 83 U/L (38-126); Anion Gap 4 mmol/L; Blood Urea Nitrogen 30 mg/dL (9-20); Carbon Dioxide 30 mmol/L (22-30); Chloride 101 mmol/L (98-107); Glucose 134 mg/dL (74-99); LDH 799 U/L (313-618); Magnesium 2.5 mg/dL (1.6-2.3); Potassium 4.6 mmol/L (3.5-5.1); Sodium 135 mmol/L (137-145); Total Bilirubin 0.5 mg/dL (0.2-1.3); Total Protein 5.4 g/dL (6.3-8.2)
[2018-09-27 16:51] LABS: Macrocytosis Moderate
[2018-09-27 17:24] LABS: Glucose,Whole Blood 190 mg/dL (75-99)
[2018-09-27] MEDS: ZOLPIDEM 5 MG TAB PO SCH (20:04)
[2018-09-27] MEDS: ATENOLOL 25 MG TAB PO SCH (20:05)
--- NOTE | 2018-09-27 20:27 | P.CONS ---
History of Present Illness - Reason for Consult Consult date: 09/27/18 NSCLCA on immune therapy Requesting physician: Janet Sánchez - Chief Complaint weakness SOB - History of Present Illness Patient of Dr. Nolan Means at [facility] who has been treated with chemo and immune therapy. He has a baseline dementia which appears to have been worsening since recently placed on steroids for pneumonitis, thought to be immune related. He has had falls at homes and overall performance has declined. Review of Systems 14 point review of systems unable to be assessed and completed ROS unobtainable: due to mental status Past Medical History Past Medical History: Cancer, COPD, CVA/TIA, Dementia, Diabetes Mellitus, Hearing Disorder / Deafness, Hyperlipidemia, Hypertension, Myocardial Infarction ([place]), Osteoarthritis (OA), Pneumonia, Vascular Disorder Additional Past Medical History / Comment(s): 2018 R lung cancer with liver mets treated with radiation and chemo therapy currently, IDDM type II, neuropathy bilateral hands/feet, slight dementia, UTI with sepsis, PVD, possible TIA with caratid surgery, spouse states pt has had 2 MIs in the past, spinal stenosis, lumbar disc disease, 2 lumbar herniated discs, hypothyroid, 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 Last Myocardial Infarction Date:: unknown History of Any Multi-Drug Resistant Organisms: None Reported Past Surgical History: Coronary Bypass/CABG, Heart Catheterization, Heart Catheterization With Stent, Orthopedic Surgery Additional Past Surgical History / Comment(s): 2011 PTCA, 1999 CABG 3 vessels, 2017 abdominal aortic aneurysm repair, bilateral legs stented, L mastoid surgery, L knee surgery to stablilize patella, bilateral wrist ganglion cysts removed, R caratid endartectomy, bilateral cataract removals. Last stent with Dr Espinoza in 2013 Past Anesthesia/Blood Transfusion Reactions: No Reported Reaction Date of Last Stent Placement:: 2013 Past Psychological History: Anxiety, Depression Additional Psychological History / Comment(s): Pt resides with his spouse and their son. The son is pt's caregiver, his spouse works midnights. Pt has a cane and walker but refused to use them. He no longer drives, spouse takes pt to appts. Smoking Status: Current every day smoker Past Alcohol Use History: None Reported Additional Past Alcohol Use History / Comment(s): Pt started smoking in 1957. He is a ppd smoker. Past Drug Use History: None Reported - Past Family History Mother Family Medical History: Coronary Artery Disease (CAD) Father Family Medical History: Diabetes Mellitus Medications and Allergies Home Medications Medication Instructions Recorded Confirmed Type ALPRAZolam [Xanax] 0.5 mg PO Q6H 05/12/15 09/25/18 History Atenolol [Tenormin] 25 mg PO HS 05/12/15 09/25/18 History Cilostazol [Pletal] 50 mg PO BID 05/12/15 09/25/18 History Citalopram Hydrobromide [CeleXA] 20 mg PO BID 05/12/15 09/25/18 History Clopidogrel Bisulfate [Plavix] 75 mg PO DAILY 05/12/15 09/25/18 History Furosemide [Lasix] 20 mg PO BID 05/12/15 09/25/18 History Gabapentin [Neurontin] 600 mg PO TID 05/12/15 09/25/18 History Lisinopril [Zestril] 10 mg PO DAILY 05/12/15 09/25/18 History Aspirin EC [Ecotrin Low Dose] 81 mg PO DAILY 06/22/17 09/25/18 History Insulin Glargine,Hum.rec.anlog See Protocol SQ HS 06/22/17 09/25/18 History [Basaglar Kwikpen U-100] Levothyroxine Sodium [Synthroid] 50 mcg PO Q72H 06/22/17 09/25/18 History oxyCODONE-APAP 7.5-325MG [Percocet 1 tab PO QID PRN 06/22/17 09/25/18 History 7.5-325 mg] Ferrous Sulfate [Iron (65 MG 325 mg PO BID 05/19/18 09/25/18 History Elemental)] Insulin Lispro [humaLOG Kwikpen] See Protocol SQ TID-W/MEALS 05/19/18 09/25/18 History Folic Acid 1 mg PO DAILY 09/05/18 09/25/18 History Zolpidem Tartrate [Ambien] 5 mg PO HS 09/05/18 09/25/18 History Morphine Sulfate ER [Ms Contin] 30 mg PO Q12H 09/06/18 09/25/18 History Cephalexin [Keflex] 500 mg PO QID 09/25/18 09/25/18 History predniSONE See Taper PO DIRECTED 09/25/18 09/25/18 History Allergies Allergy/AdvReac Type Severity Reaction Status Date / Time quetiapine [From Seroquel] AdvReac body pain Verified 09/25/18 15:07 STATINS AdvReac MUSCLE Uncoded 09/05/18 23:44 WEAKNESS Physical Exam Vitals: Vital Signs Temp Pulse Pulse Resp BP BP Pulse Ox 09/27/18 12:17 98.5 F 65 20 153/59 94 L 09/27/18 09:23 60 09/27/18 09:13 56 L 95 09/27/18 04:38 98.3 F 60 22 157/62 95 09/26/18 22:20 97.8 F 52 L 20 107/48 91 L 09/26/18 21:26 70 09/26/18 21:13 70 09/26/18 17:48 68 09/26/18 17:38 55 L 16 95 09/26/18 16:05 98.1 F 56 L 16 114/54 127/51 95 Intake and Output 09/27/18 09/27/18 09/27/18 06:59 14:59 22:59 Intake Total 100 Output Total 900 Balance -800 Intake: Oral 100 Output: Urine 900 Other: Voiding Method Urinal Diaper Incontinent # Voids 0 # Bowel Movements 0 General: Alert and Oriented x3, No Acute Distress Head: Normocytic, Atraumatic Neck: Supple Mouth: No Lesions, No Thrush Eyes: Non-sclerotic No Palpable cervical, supraclavicular, axillary adenopathy Heart: Regular Rate, Regular Rhythm Lungs: Clear to Ausculations, No Wheeze, No Rhonchi, Diminishe bilateral lower lobes, No increased respiratory effort noted Abdomen: Soft, Non-Distended, Non-Tended, BSx4 Extremities: No Edema, Equal Strength Results CBC & Chem 7: 09/27/18 16:17 09/27/18 16:17 Labs: Abnormal Lab Results - Last 24 Hours (Table) 09/26/18 09/26/18 09/27/18 Range/Units 16:57 20:48 07:10 POC Glucose (mg/dL) 268 H 317 H 109 H (75-99) mg/dL 09/27/18 Range/Units 11:55 POC Glucose (mg/dL) 229 H (75-99) mg/dL Microbiology - Last 24 Hours (Table) 09/25/18 15:13 Blood Culture - Preliminary Blood No Growth after 24 hours Assessment and Plan Plan: Assessment and Recommendation: NSCLCA - Liver - Treatment with Dr. Means - Treatment on hold until improved performance Increased Mental Status: - Baseline Dementia - Worsened on steroids, likely induced Recommend ECF at discharge and then after increased strength follow-up with Dr. Means I spoke with his primary physciain
[2018-09-27 20:32] LABS: Glucose,Whole Blood 283 mg/dL (75-99)
[2018-09-27] MEDS: INSULIN DETEMIR (LEVEMIR) 100 UNIT/ML SYR SQ SCH (20:54)
[2018-09-27] MEDS ORDERED: HALOPERIDOL LACTATE 5 MG/ML 1 ML VIAL IM ONE ×2 (21:55→23:30)
[2018-09-28] MEDS: PIPERACILLIN-TAZOBACTAM 3.375 GM in SODIUM CHLORIDE 0.9% 100 ML IVPB SCH ×4 (00:13→23:22)
--- NOTE | 2018-09-28 01:22 | P.PN ---
Progress Note - Text Progress Note Date: 09/27/18 Presenting complaint: Tired Interval history: Patient admitted with pneumonia and COPD exacerbation, low sodium. Has underlying non-small cell lung cancer with metastasis, being followed at [facility] Today-. Did tolerate some diet. Per orthopedics given a boot to wear on the left ankle. Patient refusing to wear the same. Sometimes a bit confused. . Review of systems: Was done for constitutional, cardiovascular, GI, pulmonary. relevant finding as above Current medications are reviewed and include: DuoNeb, IV Solu-Medrol, IV Zosyn, BC On examination: VITAL SIGNS: 98 points 5, 65, 20, 1 53/59, 94% on 3 L GENERAL APPEARANCE: . Laying in bed, tired appearing HEENT: Normal external appearance of nose and ear. Oral cavity normal EYES: Pupils equal. Conjunctiva pale NECK: JVD unable to assess. Mass not palpable. RESPIRATORY: Respiratory effort increased Decreased breath sounds. Some crackles CARDIOVASCULAR: First and second sounds normal. No edema. ABDOMEN: Soft. Liver and spleen not palpable. No tenderness. No mass palpable. PSYCHIATRY: Patient able to answer simple questions, occasionally confused Investigations: White count 14.1, hemoglobin 8.4, potassium 4.6, creatinine 0.95 [id number], 283 Assessment: -Pneumonia suspect gram-negative organism , POA. -Acute hypoxic respiratory failure felt to be combination of COPD/pneumonia -Bilateral pneumonitis probably secondary to chemotherapy and radiation, as determined of loss admission -Non-small cell lung cancer with metastatic, getting radiation and chemotherapy -Macrocytic anemia likely from underlying malignancy -COPD in a current smoker -Chronic nicotine dependence patient active cigarette smoker -Diabetes mellitus type 2 uncontrolled hyperglycemia, -Primary osteoarthritis -Coronary artery disease with prior history of [place] -Hypothyroid -Chronic urinary incontinence -Essential hypertension -Hyperlipidemia -Peripheral artery disease with peripheral stents -Chronic pain for which patient is on MS Contin and Percocet - chronic congestive heart exacerbation from diastolic dysfunction from underlying coronary artery disease -Moderate tricuspid regurgitation nonrheumatic -Acute delirium possibly from steroids -[id number] underlying cognitive impairment suspected -Left ankle lateral malleolus fracture, given a cam boot walker, allowed weightbearing as tolerated with walker Plan: Continue with current IV antibiotic. I was informed by the correctional counselor/case manager that patient requesting change of an/syq 13 nav/c2 operator. Did tell them to check with the patient and family and give them the other options. IV Solu-Medrol were discontinued switched to by mouth prednisone. Overall prognosis is guarded. Patient will be returning home. Hoping to be discharged to home with family. Prognosis guarded.
[2018-09-28 02:50] LABS: Folate, Serum >24.0 ng/mL
[2018-09-28] MEDS: IPRATROPIUM-ALBUTEROL 3 ML NEB INHALATION SCH ×5 (03:43→19:53)
[2018-09-28 06:59] LABS: Glucose,Whole Blood 44 mg/dL (75-99)
[2018-09-28] MEDS: DEXTROSE 10 % IN WATER 250 ML IV ONE ×2 (07:00→12:05)
[2018-09-28 07:09] LABS: Glucose,Whole Blood 51 mg/dL (75-99)
[2018-09-28 07:26] LABS: Glucose,Whole Blood 130 mg/dL (75-99)
[2018-09-28] MEDS ORDERED: predniSONE 20 MG TAB PO SCH (09:00)
[2018-09-28 10:21] LABS: Albumin 2.9 g/dL (3.5-5.0); Calcium 7.9 mg/dL (8.4-10.2); Potassium 4.2 mmol/L (3.5-5.1); Total Bilirubin 0.5 mg/dL (0.2-1.3); Total Protein 5.4 g/dL (6.3-8.2)
[2018-09-28 10:26] LABS: Basophils % (A) 0 %; Eosinophils # (A) 0.5 k/uL (0-0.7); Eosinophils % (A) 4 %; HCT 26.6 % (39.0-53.0); HGB 8.6 gm/dL (13.0-17.5); Lymphocytes # (A) 1.8 k/uL (1.0-4.8); Lymphocytes % (A) 13 %; MCH 34.9 pg (25.0-35.0); MCHC 32.2 g/dL (31.0-37.0); MCV 108.4 fL (80.0-100.0); Macrocytosis Marked; Mean Platelet Volume 8.2; Monocytes # (A) 0.7 k/uL (0-1.0); Monocytes % (A) 5 %; Neutrophils # (A) 10.4 k/uL (1.3-7.7); Neutrophils % (A) 77 %; Platelet Count 346 k/uL (150-450); RBC 2.45 m/uL (4.30-5.90); RDW 15.5 % (11.5-15.5); WBC 13.6 k/uL (3.8-10.6)
[2018-09-28] MEDS: LISINOPRIL 10 MG TAB PO SCH (10:50)
[2018-09-28] MEDS: CITALOPRAM HYDROBROMIDE 20 MG TAB PO SCH (10:50)
[2018-09-28] MEDS: FOLIC ACID 1 MG TAB PO SCH (10:50)
[2018-09-28] MEDS: ASPIRIN 81 MG PO SCH (10:50)
[2018-09-28] MEDS: GABAPENTIN 300 MG CAP PO SCH (10:50)
[2018-09-28] MEDS: ALPRAZolam 0.5 MG TAB PO PRN (10:50)
[2018-09-28] MEDS: guaiFENesin 600 MG TABLET.ER PO SCH ×2 (10:50→19:46)
[2018-09-28] MEDS: CLOPIDOGREL 75 MG TAB PO SCH (10:50)
[2018-09-28] MEDS: SODIUM CHLORIDE 0.9% 1,000 ML IV SCH (10:51)
[2018-09-28] MEDS: MORPHINE SULFATE ER 30 MG TABLET PO SCH ×2 (10:51→19:46)
[2018-09-28] MEDS: FERROUS SULFATE 325 MG TAB PO SCH ×2 (10:51→19:46)
[2018-09-28] MEDS: INSULIN ASPART (NovoLOG) 100 UNIT/ML VIAL SQ SCH ×4 (10:52→21:36)
[2018-09-28] MEDS: ENOXAPARIN 40 MG/0.4 ML SYRINGE SQ SCH (10:52)
[2018-09-28] MEDS: CILOSTAZOL 100 MG TAB PO SCH ×2 (10:55→21:47)
[2018-09-28 11:34] LABS: Anisocytosis (M) Present; Poikilocytosis (M) Present; Polychromasia Present
[2018-09-28 12:07] LABS: Glucose,Whole Blood 48 mg/dL (75-99)
[2018-09-28 12:23] LABS: Glucose,Whole Blood 174 mg/dL (75-99)
[2018-09-28] MEDS: DEXTROSE 5%-0.45% NACL 1,000 ML IV SCH ×2 (12:38→21:46)
--- NOTE | 2018-09-28 14:58 | P.CN ---
Psychiatric Consult - . Consult date: 09/28/18 Consult:: 09/28/18 14:40 Identification: Patient is a 78-year-old male who was brought to the emergency room with shortness of breath, increasing weakness Reason for Consult: altered mental status History of Present Illness: Patient's chart was reviewed, patient was seen and interviewed in his room no family members were present. Patient was admitted with shortness of breath and had recently been in the hospital and treated for pneumonia in August of this year. Patient has a diagnosis of non-small cell lung cancer with metastatic disease. Patient is being treated with Keytruda, unclear when last treatment was. Patient is unable to give a history, most of the history is obtained from the chart or in speaking with his nurse. Patient has become combative, confused and not cooperating with the nursing staff. Patient is not wearing a boot on his left leg for a fracture of the left ankle that he sustained when he fell at home. Patient is currently seen with the sitter present, he reported to me that he was concerned about his and stated he wanted to know who the other person in the room was looking at and empty recliner in the corner of the room. Patient then went on to state that he wants to know what the other people in the other room or doing, he thought he was at home, states that he is concerned about his because he's tried to call her and she hasn't answered. Patient thought he was in his own home, asked me to repair his ankle. Past Psychiatric History: Patient is taking Celexa, Ambien and Xanax, I have no information regarding his prior psychiatric history Past Medical/Surgical History: Patient has a history of hypertension and diabetes, arthritis coronary artery disease, CVA, non-small cell lung cancer with metastatic disease and a new fracture of the left ankle. Patient is status post CABG procedure, abdominal aortic aneurysm repair, bilateral leg stents, status post right carotid endarterectomy, Social History: Unable to obtain as there is no family present and the patient is unable to give me a social history. Substance Use History: Unable to obtain Mental status: Appearance/Attitude: Patient is dressed in a hospital gown, lying in a hospital bed makes intermittent eye contact Behavior: Patient does not exhibit any psychomotor retardation, he appears slightly restless Speech/Language: Patient's speech is garbled due to lack of dentition Thought Process: Patient responded to questions, his answers at times were irrelevant Thought Content: Patient reports that he is seeing things in the room, he pointed to a recliner in the corner and asked who was sitting there, patient is suspicious about people in another room, concerned about his and why she hasn't called him. Suicidal/Homicidal Ideation: Unable to assess as patient did not respond to these questions Sensorium/Cognition: Patient is oriented to person, states he is at home further cognitive testing is not performed due to the patient's inability to cooperate with the evaluation, he was awake during the interview Mood/Affect: Patient's mood is slightly irritable and suspicious affect is appropriate to his mood Insight/Judgment: Since insight and judgment are impaired Assessment: Patient presents with shortness of breath, weakness after having recently been treated for pneumonia in August and being treated for non-small cell lung cancer with metastatic disease. Patient has multiple other medical probl ems. Patient has an unknown psychiatric history, I have no information regarding why the patient is taking Celexa, Xanax or Ambien. At this time the patient is presenting with a delirium that is most likely multifactorial in etiology. Patient received Xanax 1.5 mg on September 27, is receiving Celexa 20 mg twice a day and Ambien 5 mg at bedtime as well as patient is also on Neurontin 600 mg 3 times a day. Patient is currently on steroids now prednisone 20 mg a day for his pulmonary problems. Patient is also received Haldol 2.5 mg IM 2 for his agitated, assaultive behavior. Per the nurse the patient was receiving Xanax 0.5 mg at home at bedtime and then periodically during the day. Diagnosis: Delirium Plan: I suspect this patient's delirium is a combination of his underlying medical problems, multiple medications and the addition of steroids. I would recommend at this time discontinuing the Xanax as this will only compound his confusion and disorientation. I will also discontinue the patient's Celexa at this time I see no need for an antidepressant, I will also taper his Ambien to 2.5 mg at bedtime for 3 days and then discontinue this can also add to his confusion and disorientation. Would suggest consideration of discontinuing his Neurontin if not medically necessary. Patient's prednisone can be continued if it is viewed to be medically necessary to treat his underlying pulmonary problems. Will begin Risperdal M tabs 1 mg twice a day as needed for agitation to target his agitated aggressive behavior. Would recommend continuing his fire safety director with this patient to ensure his safety and to assist the patient. I will follow the patient and adjust his Risperdal as needed to target his agitation. Given any questions or concerns please don't hesitate to contact me 09/28/18 14:44 09/28/18 14:56
[2018-09-28] MEDS: risperiDONE ODT 1 MG TAB PO PRN (16:03)
[2018-09-28 17:15] LABS: Glucose,Whole Blood 164 mg/dL (75-99)
[2018-09-28 20:45] LABS: Glucose,Whole Blood 131 mg/dL (75-99)
[2018-09-28] MEDS: ATENOLOL 25 MG TAB PO SCH (21:45)
[2018-09-28] MEDS: ZOLPIDEM 5 MG TAB PO SCH (21:47)
[2018-09-28] MEDS: INSULIN DETEMIR (LEVEMIR) 100 UNIT/ML SYR SQ SCH (22:50)
[2018-09-28 23:01] LABS: Glucose,Whole Blood 163 mg/dL (75-99)
--- NOTE | 2018-09-28 23:16 | P.PN ---
Progress Note - Text Progress Note Date: 09/28/18 Presenting complaint: Tired Interval history: Patient admitted with pneumonia and COPD exacerbation, low sodium. Has underlying non-small cell lung cancer with metastasis, being followed at [place] . Has been intermittently confused. Sometimes agitated. Today-. Oral intake variable. Psychiatry was consulted. Intermittently confused. Had a sitter. IV Solu-Medrol had been discontinued. Was put on oral prednisone 20 mg by pulmonary Review of systems: Was attempted for constitutional, cardiovascular, GI, pulmonary. relevant finding as above Current medications are reviewed and include: DuoNeb, prednisone 20 mg IV Zosyn, On examination: VITAL SIGNS: 97.5, 54, 22, 1 44 x 56, 91% on 4 L GENERAL APPEARANCE: . Laying in bed, intermittently confused HEENT: Normal external appearance of nose and ear. Oral cavity with dry EYES: Pupils equal. Conjunctiva pale NECK: JVD unable to assess. Mass not palpable. RESPIRATORY: Respiratory effort increased Decreased breath sounds. Some crackles CARDIOVASCULAR: First and second sounds normal. No edema. ABDOMEN: Soft. Liver and spleen not palpable. No tenderness. No mass palpable. PSYCHIATRY: Patient able to answer simple questions, occasionally confused EXTREMITY: Some bruising along the left ankle, POA Investigations: White count 13.6, hemoglobin 8.6, potassium 4.2, creatinine 1.03 [id number]-49, 51, 130 Assessment: -Pneumonia suspect gram-negative organism , POA. -Acute hypoxic respiratory failure felt to be combination of COPD/pneumonia -Bilateral pneumonitis probably secondary to chemotherapy and radiation, as determined of loss admission -Non-small cell lung cancer with metastatic, getting radiation and chemotherapy -Macrocytic anemia likely from underlying malignancy -COPD in a current smoker -Chronic nicotine dependence patient active cigarette smoker -Diabetes mellitus type 2 uncontrolled hyperglycemia, and hypoglycemia from decreased oral intake -Primary osteoarthritis -Coronary artery disease with prior history of [place] -Hypothyroid -Chronic urinary incontinence -Essential hypertension -Hyperlipidemia -Peripheral artery disease with peripheral stents -Chronic pain for which patient is on MS Contin and Percocet - chronic congestive heart exacerbation from diastolic dysfunction from underlying coronary artery disease -Moderate tricuspid regurgitation nonrheumatic -Acute delirium possibly from steroids -[id number] underlying cognitive impairment suspected -Left ankle lateral malleolus fracture, given a cam boot walker, allowed weightbearing as tolerated with walker Plan: We'll totally DC the steroids. Later patient was seen by psychiatry Dr. Head. Ambien is to be tapered off. Also suggested stopping the Neurontin which we will do. Risperdal was started by them. Sitter is to continue. Prognosis is guarded.
[2018-09-29] MEDS: IPRATROPIUM-ALBUTEROL 3 ML NEB INHALATION SCH ×7 (00:36→23:26)
[2018-09-29] MEDS: risperiDONE ODT 1 MG TAB PO PRN (01:06)
[2018-09-29 03:55] LABS: Glucose,Whole Blood 260 mg/dL (75-99)
[2018-09-29] MEDS: LEVOTHYROXINE 50 MCG TAB PO SCH (05:18)
[2018-09-29 07:21] LABS: Glucose,Whole Blood 40 mg/dL (75-99)
[2018-09-29] MEDS: DEXTROSE 10 % IN WATER 250 ML IV ONE (07:42)
[2018-09-29 07:48] LABS: Glucose,Whole Blood 42 mg/dL (75-99)
[2018-09-29 08:13] LABS: Glucose,Whole Blood 101 mg/dL (75-99)
[2018-09-29] MEDS: ENOXAPARIN 40 MG/0.4 ML SYRINGE SQ SCH (08:22)
[2018-09-29] MEDS: LISINOPRIL 10 MG TAB PO SCH (08:23)
[2018-09-29] MEDS: PIPERACILLIN-TAZOBACTAM 3.375 GM in SODIUM CHLORIDE 0.9% 100 ML IVPB SCH ×2 (08:23→16:50)
[2018-09-29] MEDS: ASPIRIN 81 MG PO SCH (08:23)
[2018-09-29] MEDS: FOLIC ACID 1 MG TAB PO SCH (08:23)
[2018-09-29] MEDS: CLOPIDOGREL 75 MG TAB PO SCH (08:23)
[2018-09-29] MEDS: guaiFENesin 600 MG TABLET.ER PO SCH ×2 (08:23→20:14)
[2018-09-29] MEDS: MORPHINE SULFATE ER 30 MG TABLET PO SCH ×2 (08:23→20:13)
[2018-09-29] MEDS: FERROUS SULFATE 325 MG TAB PO SCH ×2 (08:23→20:13)
[2018-09-29] MEDS: INSULIN ASPART (NovoLOG) 100 UNIT/ML VIAL SQ SCH ×4 (08:24→21:21)
[2018-09-29] MEDS: DEXTROSE 5%-0.45% NACL 1,000 ML IV SCH ×2 (10:12→17:46)
[2018-09-29 12:38] LABS: Glucose,Whole Blood 71 mg/dL (75-99)
[2018-09-29] MEDS: MORPHINE SULFATE 4 MG/ML SYRINGE IV PRN (14:54)
[2018-09-29] MEDS: CILOSTAZOL 100 MG TAB PO SCH ×2 (16:51→20:14)
[2018-09-29] MEDS ORDERED: risperiDONE ODT 1 MG TAB PO PRN (17:06)
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
[2018-09-29 17:15] LABS: Glucose,Whole Blood 64 mg/dL (75-99)
[2018-09-29 17:22] LABS: Glucose,Whole Blood 62 mg/dL (75-99)
[2018-09-29 17:51] LABS: Glucose,Whole Blood 86 mg/dL (75-99)
[2018-09-29] MEDS: ZOLPIDEM 5 MG TAB PO SCH (20:13)
[2018-09-29] MEDS: ATENOLOL 25 MG TAB PO SCH (20:14)
--- NOTE | 2018-09-29 20:43 | P.PN ---
Progress Note - Text Progress Note Date: 09/29/18 Presenting complaint: Tired Interval history: Patient admitted with pneumonia and COPD exacerbation, low sodium. Has underlying non-small cell lung cancer with metastasis, being followed at [facility] . Has been intermittently confused. Sometimes agitated. Today-. Medications were adjusted by psychiatry yesterday. Neurontin was stopped. Steroids were stopped. Ambien cut back. Started on Risperdal. Patient appears more calm today. Restful. uneventful night Review of systems: Was attempted for constitutional, cardiovascular, GI, pulmonary. relevant finding as above Current medications are reviewed and include: DuoNeb, IV Zosyn, Respinol M On examination: VITAL SIGNS: 97.7, 18, 20, 100/49, Odalis 4% on 5 L, GENERAL APPEARANCE: . Laying in bed, appears calm HEENT: Normal external appearance of nose and ear. Oral cavity with dry EYES: Pupils equal. Conjunctiva pale NECK: JVD unable to assess. Mass not palpable. RESPIRATORY: Respiratory effort increased Decreased breath sounds. Some crackles CARDIOVASCULAR: First and second sounds normal. No edema. ABDOMEN: Soft. Liver and spleen not palpable. No tenderness. No mass palpable. PSYCHIATRY: Patient able to answer simple questions, occasionally confused EXTREMITY: Some bruising along the left ankle, POA Investigations: White count 13.6, hemoglobin 8.6, potassium 4.2, creatinine 1.03 [id number], 71, 64 Assessment: -Pneumonia suspect gram-negative organism , POA. -Acute hypoxic respiratory failure felt to be combination of COPD/pneumonia -Bilateral pneumonitis probably secondary to chemotherapy and radiation, as determined of loss admission -Non-small cell lung cancer with metastatic, getting radiation and chemotherapy -Macrocytic anemia likely from underlying malignancy -COPD in a current smoker -Chronic nicotine dependence patient active cigarette smoker -Diabetes mellitus type 2 uncontrolled hyperglycemia, and hypoglycemia from decreased oral intake -Primary osteoarthritis -Coronary artery disease with prior history of NM -Hypothyroid -Chronic urinary incontinence -Essential hypertension -Hyperlipidemia -Peripheral artery disease with peripheral stents -Chronic pain for which patient is on MS Contin and Percocet - chronic congestive heart exacerbation from diastolic dysfunction from underlying coronary artery disease -Moderate tricuspid regurgitation nonrheumatic -Acute delirium possibly from steroids -[id number] underlying cognitive impairment suspected -Left ankle lateral malleolus fracture, given a cam boot walker, allowed weightbearing as tolerated with walker Plan: Patient's is to be more restful. Spoke to correctional case manager. Family he to take him back home. We'll give him at least 24 hours. That'll settle down a bit more. We will DC the Zosyn. Start Augmentin. Insulin to be held right now because sugars running low.
[2018-09-29 21:06] LABS: Glucose,Whole Blood 209 mg/dL (75-99)
[2018-09-29] MEDS: AMOXIC-POT CLAV 875-125MG 1 EACH TAB PO SCH (21:14)
[2018-09-30 02:04] LABS: Glucose,Whole Blood 78 mg/dL (75-99)
[2018-09-30 03:07] LABS: Glucose,Whole Blood 87 mg/dL (75-99)
[2018-09-30] MEDS: IPRATROPIUM-ALBUTEROL 3 ML NEB INHALATION SCH ×5 (03:12→19:33)
[2018-09-30] MEDS: MORPHINE SULFATE 4 MG/ML SYRINGE IV PRN (04:41)
[2018-09-30] MEDS: DEXTROSE 5%-0.45% NACL 1,000 ML IV SCH ×2 (04:49→17:21)
[2018-09-30 04:52] LABS: Glucose,Whole Blood 186 mg/dL (75-99)
[2018-09-30 05:01] VITALS: BP 100/59; RESP 14; TEMP 100
[2018-09-30 07:13] LABS: Glucose,Whole Blood 318 mg/dL (75-99)
[2018-09-30] MEDS: guaiFENesin 600 MG TABLET.ER PO SCH (08:37)
[2018-09-30] MEDS: FERROUS SULFATE 325 MG TAB PO SCH (08:37)
[2018-09-30] MEDS: CLOPIDOGREL 75 MG TAB PO SCH (08:38)
[2018-09-30] MEDS: MORPHINE SULFATE ER 30 MG TABLET PO SCH (08:38)
[2018-09-30] MEDS: FOLIC ACID 1 MG TAB PO SCH (08:38)
[2018-09-30] MEDS: ASPIRIN 81 MG PO SCH (08:38)
[2018-09-30] MEDS: LISINOPRIL 10 MG TAB PO SCH (08:38)
[2018-09-30] MEDS: AMOXIC-POT CLAV 875-125MG 1 EACH TAB PO SCH (08:38)
[2018-09-30] MEDS: CILOSTAZOL 100 MG TAB PO SCH (08:39)
[2018-09-30] MEDS: INSULIN ASPART (NovoLOG) 100 UNIT/ML VIAL SQ SCH ×3 (08:39→18:02)
[2018-09-30] MEDS: ENOXAPARIN 40 MG/0.4 ML SYRINGE SQ SCH (09:11)
[2018-09-30 12:20] LABS: Glucose,Whole Blood 283 mg/dL (75-99)
--- NOTE | 2018-09-30 14:36 | P.PN ---
Progress Note - Text Progress Note Date: 09/30/18 Interval History: Patient is a 78-year-old male who was seen today, patient is lying in his bed he is actually wearing the boot on his left foot to support his left ankle. Patient per the sitter was less agitated today, there've been no attempts to hit anyone, he did eat breakfast but not lunch. Patient is restless in bed trying to get comfortable but is not reported seeing any animals in his room. Patient did respond to his name when I spoke with him, could not tell me where we were. Mental Status: Patient is sitting up in bed wearing the boot on his left foot, he is somewhat restless trying to get comfortable in bed, he is not picking at his covers as much as he has been and has not been as agitated and has not attempted to hit anyone. Patient is alert, responds to his name but is not oriented to place or time or situation, however he has not reported seeing things in the room. Patient is difficult to understand due to not having any teeth. Assessment: Patient has not been as agitated, there've been no episodes of assaultive behavior and he received his last dose of as needed Risperdal at 10 something last evening. Patient is also wearing the boot on his left foot which is different as he would not allow anyone to place this before. Patient did eat some breakfast but not lunch per his sitter. Patient remains oriented to person only but is not reporting any visual hallucinations today. He is difficult to understand due to his lack of teeth. Plan: I spoke with Dr. gamez and I would recommend and of written a prescription for Risperdal M tabs 0.25 mg to be used at home on an as-needed basis every 8 hours for agitation. Patient's family should be instructed that this is to be used when the patient becomes agitated, assaultive, it should not be used [id number]. Patient should be reassessed by his PCP or oncologist about the continued need for Risperdal. I will sign off the case of 30 further questions or concerns please don't hesitate to contact me
[2018-09-30 17:20] LABS: Glucose,Whole Blood 315 mg/dL (75-99)
[2018-09-30 19:49] VITALS: PULSE 72
--- NOTE | 2018-10-02 00:19 | P.DS ---
Providers Date of admission: 09/25/18 15:58 Expected date of discharge: 09/30/18 Attending physician: Niko Anguiano Consults: 09/25/18 18:48 Consult Physician Routine Consulting Provider: Humble Regan Consult Reason/Comments: pneumonia, lung cancer Do you want consulting provider notified?: Yes 09/25/18 19:20 Consult Physician Routine Consulting Provider: Maurisio Leger Consult Reason/Comments: Left fibular frature Do you want consulting provider notified?: Yes 09/26/18 12:08 Consult Physician Routine Consulting Provider: Mir Núñez Consult Reason/Comments: lung cancer Do you want consulting provider notified?: Yes 09/28/18 12:22 Consult Physician Routine Consulting Provider: Anali Head Consult Reason/Comments: altered mental status Do you want consulting provider notified?: Yes Primary care physician: [facility] Hospital Course: Presenting complaint: Tired Interval history: Patient admitted with pneumonia and COPD exacerbation, low sodium. Has underlying non-small cell lung cancer with metastasis, being followed at [facility] . Has been intermittently confused. Sometimes agitated. During the hospital stay, patient continued to deteriorate. Not eating much. Encephalopathic delirious. Patient also has a fracture of the left malleolus. The Un[place] boot On the day of discharge spoke at length to patient's sister. Poor prognosis was discussed. Patient she does express the patient and family does understand prognosis is not good. Did even talk about hospice. At this point elected to take the patient home with palliative care. Spoke to the protective services case worker, also spoke to the nurse from [facility]. Family is thinking of transitioning to hospice down the road. Forms were signed f. Patient's oral intake has been minimal. Otherwise been no pain. Patient's family was skiing to take the patient home. For further care. Discussion discharge planning more than [address] Head from psychiatry Dr. David Regan from pulmonary Dr. Montero from orthopedics Review of systems: Was attempted for constitutional, cardiovascular, GI, pulmonary. relevant finding as above Current medications are reviewed and include: DuoNeb, IV Zosyn, Respinol M On examination: VITAL SIGNS: 100/59, 94% on 5 L, GENERAL APPEARANCE: . Laying in bed, appears calm HEENT: Normal external appearance of nose and ear. Oral cavity with dry EYES: Pupils equal. Conjunctiva pale NECK: JVD unable to assess. Mass not palpable. RESPIRATORY: Respiratory effort increased Decreased breath sounds. CARDIOVASCULAR: First and second sounds normal. No edema. ABDOMEN: Soft. Liver and spleen not palpable. No tenderness. No mass palpable. PSYCHIATRY: Patient able to answer simple questions, occasionally confused EXTREMITY: Some bruising along the left ankle, POA Investigations: Ankle and foot x-ray did show fracture of the left lateral malleolus Assessment: -Pneumonia suspect gram-negative organism , POA. -Acute hypoxic respiratory failure felt to be combination of COPD/pneumonia -Bilateral pneumonitis probably secondary to chemotherapy and radiation, as determined of loss admission -Non-small cell lung cancer with metastatic, getting radiation and chemotherapy -Macrocytic anemia likely from underlying malignancy -COPD in a current smoker -Chronic nicotine dependence patient active cigarette smoker -Diabetes mellitus type 2 uncontrolled hyperglycemia, and hypoglycemia from decreased oral intake -Primary osteoarthritis -Coronary artery disease with prior history of [place] -Hypothyroid -Chronic urinary incontinence -Essential hypertension -Hyperlipidemia -Peripheral artery disease with peripheral stents -Chronic pain for which patient is on MS Contin and Percocet - chronic congestive heart exacerbation from diastolic dysfunction from underlying coronary artery disease -Moderate tricuspid regurgitation nonrheumatic -Acute delirium possibly from steroids -[id number] underlying cognitive impairment suspected -Left ankle lateral malleolus fracture, given a cam boot walker, allowed weightbearing as tolerated with walker Disposition: Home with palliative care. Patient Condition at Discharge: Poor Plan - Discharge Summary Discharge Rx Participant: No New Discharge Prescriptions: New guaiFENesin [Mucinex] 1,200 mg PO Q12HR #30 tablet.er risperiDONE [risperiDONE ODT] 0.25 mg PO TID PRN #21 tab.rapdis PRN Reason: Agitation Continue Cilostazol [Pletal] 50 mg PO BID Clopidogrel Bisulfate [Plavix] 75 mg PO DAILY Lisinopril [Zestril] 10 mg PO DAILY Atenolol [Tenormin] 25 mg PO HS oxyCODONE-APAP 7.5-325MG [Percocet 7.5-325 mg] 1 tab PO QID PRN PRN Reason: Breakthrough Pain Aspirin EC [Ecotrin Low Dose] 81 mg PO DAILY Levothyroxine Sodium [Synthroid] 50 mcg PO Q72H Insulin Glargine,Hum.rec.anlog [Basaglar Tavon U-100] See Protocol SQ HS Insulin Lispro [humaLOG Kwikpen] See Protocol SQ TID-W/MEALS Ferrous Sulfate [Iron (65 MG Elemental)] 325 mg PO BID Folic Acid 1 mg PO DAILY Morphine Sulfate ER [Ms Contin] 30 mg PO Q12H Discontinued Furosemide [Lasix] 20 mg PO BID Citalopram Hydrobromide [CeleXA] 20 mg PO BID ALPRAZolam [Xanax] 0.5 mg PO Q6H Gabapentin [Neurontin] 600 mg PO TID Zolpidem Tartrate [Ambien] 5 mg PO HS Cephalexin [Keflex] 500 mg PO QID predniSONE See Taper PO DIRECTED No Action Amoxic-Pot Clav 875-125Mg [Augmentin 875-125] 1 tab PO Q12HR Ipratropium-Albuterol Nebulize [Duoneb 0.5 mg-3 mg/3 ml Soln] 3 ml INHALATION RT-TID Discharge Medication List Atenolol [Tenormin] 25 mg PO HS 05/12/15 [History] Cilostazol [Pletal] 50 mg PO BID 05/12/15 [History] Clopidogrel Bisulfate [Plavix] 75 mg PO DAILY 05/12/15 [History] Lisinopril [Zestril] 10 mg PO DAILY 05/12/15 [History] Aspirin EC [Ecotrin Low Dose] 81 mg PO DAILY 06/22/17 [History] Insulin Glargine,Hum.rec.anlog [Basaglar Kwikpen U-100] See Protocol SQ HS 06/22/17 [History] Levothyroxine Sodium [Synthroid] 50 mcg PO Q72H 06/22/17 [History] oxyCODONE-APAP 7.5-325MG [Percocet 7.5-325 mg] 1 tab PO QID PRN 06/22/17 [History] Ferrous Sulfate [Iron (65 MG Elemental)] 325 mg PO BID 05/19/18 [History] Insulin Lispro [humaLOG Kwikpen] See Protocol SQ TID-W/MEALS 05/19/18 [History] Folic Acid 1 mg PO DAILY 09/05/18 [History] Morphine Sulfate ER [Ms Contin] 30 mg PO Q12H 09/06/18 [History] guaiFENesin [Mucinex] 1,200 mg PO Q12HR #30 tablet.er 09/30/18 [Rx] risperiDONE [risperiDONE ODT] 0.25 mg PO TID PRN #21 tab.rapdis 09/30/18 [Rx] Amoxic-Pot Clav 875-125Mg [Augmentin 875-125] 1 tab PO Q12HR 10/01/18 [History] Ipratropium-Albuterol Nebulize [Duoneb 0.5 mg-3 mg/3 ml Soln] 3 ml INHALATION RT-TID 10/01/18 [History] Follow up Appointment(s)/Referral(s): oncologistdr [Other] - 3 Days 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 PATIENT SHOULD NOT SMOKE NEAR OXYGEN DELIVERY SYSTEMS NOR WITH OXYGEN VIA NASAL CANNULA. Discharge Disposition: HOME SELF-CARE
== END 2018-09-30 20:12 | disposition home or self-care (01) | DRG 177 ==
LOC: EC 14:26 → 4SSUR 15:58 → 4MS4W 09-26 14:20
PROVIDERS: ADMIT Internal Medicine; ATTEND Hospitalist
DX: J15.6 Pneumonia due to other Gram-negative bacteria (principal); J96.21 Acute and chronic respiratory failure with hypoxia; J44.1 Chronic obstructive pulmonary disease with (acute) exacerbation; C78.7 Secondary malignant neoplasm of liver and intrahepatic bile duct; E87.1 Hypo-osmolality and hyponatremia; C34.91 Malignant neoplasm of unspecified part of right bronchus or lung; I50.32 Chronic diastolic (congestive) heart failure; J44.0 Chronic obstructive pulmonary disease with (acute) lower respiratory infection; J70.4 Drug-induced interstitial lung disorders, unspecified; R44.1 Visual hallucinations; D63.0 Anemia in neoplastic disease; S82.62XA Displaced fracture of lateral malleolus of left fibula, initial encounter for closed fracture; W19.XXXA Unspecified fall, initial encounter; E03.9 Hypothyroidism, unspecified; E78.5 Hyperlipidemia, unspecified; E86.0 Dehydration; E11.51 Type 2 diabetes mellitus with diabetic peripheral angiopathy without gangrene; E11.65 Type 2 diabetes mellitus with hyperglycemia; G89.29 Other chronic pain; M17.12 Unilateral primary osteoarthritis, left knee; I25.10 Atherosclerotic heart disease of native coronary artery without angina pectoris; I11.0 Hypertensive heart disease with heart failure; T45.1X5A Adverse effect of antineoplastic and immunosuppressive drugs, initial encounter; T50.8X5A Adverse effect of diagnostic agents, initial encounter; F17.210 Nicotine dependence, cigarettes, uncomplicated; I36.1 Nonrheumatic tricuspid (valve) insufficiency; S80.02XA Contusion of left knee, initial encounter; N39.498 Other specified urinary incontinence; F32.9 Major depressive disorder, single episode, unspecified; F41.9 Anxiety disorder, unspecified; F03.90 Unspecified dementia, unspecified severity, without behavioral disturbance, psychotic disturbance, mood disturbance, and anxiety; Z51.5 Encounter for palliative care; H91.90 Unspecified hearing loss, unspecified ear; R41.0 Disorientation, unspecified; T38.0X5A Adverse effect of glucocorticoids and synthetic analogues, initial encounter; Y92.230 Patient room in hospital as the place of occurrence of the external cause; Z87.440 Personal history of urinary (tract) infections; Z97.4 Presence of external hearing-aid; Y92.009 Unspecified place in unspecified non-institutional (private) residence as the place of occurrence of the external cause; I25.2 Old myocardial infarction; Z79.02 Long term (current) use of antithrombotics/antiplatelets; Z79.82 Long term (current) use of aspirin; Z79.890 Hormone replacement therapy; Z79.891 Long term (current) use of opiate analgesic; Z79.899 Other long term (current) drug therapy; Z95.1 Presence of aortocoronary bypass graft; Z86.79 Personal history of other diseases of the circulatory system; Z88.8 Allergy status to other drugs, medicaments and biological substances; Z86.73 Personal history of transient ischemic attack (TIA), and cerebral infarction without residual deficits; Z95.820 Peripheral vascular angioplasty status with implants and grafts; Z95.5 Presence of coronary angioplasty implant and graft; Z98.42 Cataract extraction status, left eye; Z98.41 Cataract extraction status, right eye; Z79.52 Long term (current) use of systemic steroids; Z82.49 Family history of ischemic heart disease and other diseases of the circulatory system; Z83.3 Family history of diabetes mellitus
CPT/HCPCS: 36415; 71045; 71046; 80048; 80053; 82533; 82607; 82746; 83605; 83615; 83735; 83921; 84443; 84484; 85025; 85610; 85730; 87040; 93005; 94640; 94760; 96361; 96365; 96375; 99291

== ENCOUNTER 2018-10-01 13:31 | Observation (INO) | payer MEDICARE, BC ==
[2018-10-01] MEDS ORDERED: SODIUM CHLORIDE 0.9% 1,000 ML IV ONE ×2 (13:47)
--- NOTE | 2018-10-01 14:01 | ED ---
Altered Mental Status HPI - General Chief Complaint: Altered Mental Status Stated Complaint: altered mental status, weakness Time Seen by Provider: 10/01/18 13:31 Source: patient, EMS Mode of arrival: EMS Limitations: altered mental status, physical limitation - History of Present Illness Initial Comments: This is a 78-year-old male with a history of recent admission for pneumonia COPD exacerbation and diagnoses of lung cancer who was discharged yesterday his back today with complaints per paramedics from family of decreased level of consciousness/lethargy. Patient's a poor historian at this time apparently normally is more awake and alert. No reports of any trauma no fevers chills nausea vomiting sweats at this time. The patient is unable to provide any information other then brief answers to questions MD Complaint: decreased responsiveness - Related Data Home Medications Medication Instructions Recorded Confirmed Atenolol [Tenormin] 25 mg PO HS 05/12/15 10/01/18 Cilostazol [Pletal] 50 mg PO BID 05/12/15 10/01/18 Clopidogrel Bisulfate [Plavix] 75 mg PO DAILY 05/12/15 10/01/18 Lisinopril [Zestril] 10 mg PO DAILY 05/12/15 10/01/18 Aspirin EC [Ecotrin Low Dose] 81 mg PO DAILY 06/22/17 10/01/18 Insulin Glargine,Hum.rec.anlog See Protocol SQ HS 06/22/17 10/01/18 [Basaglar Kwikpen U-100] Levothyroxine Sodium [Synthroid] 50 mcg PO Q72H 06/22/17 10/01/18 oxyCODONE-APAP 7.5-325MG [Percocet 1 tab PO QID PRN 06/22/17 10/01/18 7.5-325 mg] Ferrous Sulfate [Iron (65 MG 325 mg PO BID 05/19/18 10/01/18 Elemental)] Insulin Lispro [humaLOG Kwikpen] See Protocol SQ TID-W/MEALS 05/19/18 10/01/18 Folic Acid 1 mg PO DAILY 09/05/18 10/01/18 Morphine Sulfate ER [Ms Contin] 30 mg PO Q12H 09/06/18 10/01/18 Amoxic-Pot Clav 875-125Mg 1 tab PO Q12HR 10/01/18 10/01/18 [Augmentin 875-125] Ipratropium-Albuterol Nebulize 3 ml INHALATION RT-TID 10/01/18 10/01/18 [Duoneb 0.5 mg-3 mg/3 ml Soln] Previous Rx's Medication Instructions Recorded guaiFENesin [Mucinex] 1,200 mg PO Q12HR #30 tablet.er 09/30/18 risperiDONE [risperiDONE ODT] 0.25 mg PO TID PRN #21 tab.rapdis 09/30/18 Allergies Allergy/AdvReac Type Severity Reaction Status Date / Time methylprednisolone AdvReac Confusion Verified 10/01/18 14:04 [From Solu-Medrol] quetiapine [From Seroquel] AdvReac body pain Verified 10/01/18 14:04 STATINS AdvReac MUSCLE Uncoded 10/01/18 14:04 WEAKNESS Review of Systems ROS Statement: Those systems with pertinent positive or pertinent negative responses have been documented in the HPI. ROS Other: All systems not noted in ROS Statement are negative. Past Medical History Past Medical History: Cancer, COPD, CVA/TIA, Diabetes Mellitus, Hearing Disorder / Deafness, Hyperlipidemia, Hypertension, Myocardial Infarction (OK), Osteoarthritis (OA), Pneumonia, Vascular Disorder Additional Past Medical History / Comment(s): 2018 R lung cancer with liver mets treated with radiation and chemo therapy currently, IDDM type II, neuropathy bilateral hands/feet, slight dementia, UTI with sepsis, PVD, possible TIA with caratid surgery, spouse states pt has had 2 MIs in the past, spinal stenosis, lumbar disc disease, 2 lumbar herniated discs, hypothyroid, KALSKAG-wears aide in R ear and 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 Last Myocardial Infarction Date:: unknown History of Any Multi-Drug Resistant Organisms: None Reported Past Surgical History: Coronary Bypass/CABG, Heart Catheterization, Heart Catheterization With Stent, Orthopedic Surgery Additional Past Surgical History / Comment(s): 2011 PTCA, 1999 CABG 3 vessels, 2017 abdominal aortic aneurysm repair, bilateral legs stented, L mastoid surgery, L knee surgery to stablilize patella, bilateral wrist ganglion cysts removed, R caratid endartectomy, bilateral cataract removals. Last stent with Dr Espinoza in 2013 Past Anesthesia/Blood Transfusion Reactions: No Reported Reaction Date of Last Stent Placement:: 2013 Past Psychological History: Anxiety, Depression Smoking Status: Current every day smoker Past Alcohol Use History: None Reported Past Drug Use History: None Reported - Past Family History Mother Family Medical History: Coronary Artery Disease (CAD) Father Family Medical History: Diabetes Mellitus General Exam - General Exam Comments Initial Comments: This is a well-developed well-nourished awake but lethargic male Limitations: altered mental status, physical limitation General appearance: alert, in no apparent distress Head exam: Present: atraumatic, normocephalic, normal inspection Eye exam: Present: normal appearance, PERRL, EOMI. Absent: scleral icterus, conjunctival injection, periorbital swelling ENT exam: Present: mucous membranes dry Neck exam: Present: normal inspection. Absent: tenderness, meningismus, lymphadenopathy Respiratory exam: Present: decreased breath sounds. Absent: respiratory distress, wheezes, rales, rhonchi, stridor Cardiovascular Exam: Present: regular rate, normal rhythm, normal heart sounds. Absent: systolic murmur, diastolic murmur, rubs, gallop, clicks GI/Abdominal exam: Present: soft, normal bowel sounds. Absent: distended, tenderness, guarding, rebound, rigid Extremities exam: Present: normal inspection, full ROM, normal capillary refill. Absent: tenderness, pedal edema, joint swelling, calf tenderness Back exam: Present: normal inspection Neurological exam: Present: alert, altered, CN II-XII intact Psychiatric exam: Present: normal affect, normal mood Skin exam: Present: warm, dry, intact, normal color. Absent: rash Course Vital Signs 10/01/18 10/01/18 10/01/18 13:35 14:00 14:15 Temperature 98 F 98 F 98 F Pulse Rate 74 74 74 Respiratory 18 18 18 Rate Blood Pressure 145/67 145/67 145/67 O2 Sat by Pulse 98 98 98 Oximetry 10/01/18 10/01/18 10/01/18 14:30 14:45 15:22 Temperature 98 F 98 F Pulse Rate 74 74 71 Respiratory 18 18 18 Rate Blood Pressure 145/67 145/67 135/67 O2 Sat by Pulse 98 98 99 Oximetry Medical Decision Making - Medical Decision Making I did a long discussion with the patient's patient is somewhat more condescending after IV fluids however he still not producing urine the initial plan was to have the patient be hospice currently the arrangements have not been fully instituted. [facility] was contacted. They will began finalizing plans for the patient and contact family members. I did discuss the case with Dr. Anguiano patient will be readmitted IV hydration and plan for hospice. - Lab Data Result diagrams: 10/01/18 14:40 10/01/18 14:40 Lab Results 10/01/18 10/01/18 10/01/18 Range/Units 14:40 14:40 14:40 WBC 7.5 (3.8-10.6) k/uL RBC 2.44 L (4.30-5.90) m/uL Hgb 8.7 L (13.0-17.5) gm/dL Hct 26.3 L (39.0-53.0) % MCV 107.8 H (80.0-100.0) fL MCH 35.7 H (25.0-35.0) pg MCHC 33.1 (31.0-37.0) g/dL RDW 15.5 (11.5-15.5) % Plt Count 353 (150-450) k/uL Neutrophils % 76 % Lymphocytes % 12 % Monocytes % 6 % Eosinophils % 4 % Basophils % 0 % Neutrophils # 5.7 (1.3-7.7) k/uL Lymphocytes # 0.9 L (1.0-4.8) k/uL Monocytes # 0.5 (0-1.0) k/uL Eosinophils # 0.3 (0-0.7) k/uL Basophils # 0.0 (0-0.2) k/uL Macrocytosis Moderate PT 11.7 (9.0-12.0) sec INR 1.1 (<1.2) APTT 22.9 (22.0-30.0) sec Sodium 134 L (137-145) mmol/L Potassium 4.5 (3.5-5.1) mmol/L Chloride 101 (98-107) mmol/L Carbon Dioxide 25 (22-30) mmol/L Anion Gap 8 mmol/L BUN 11 (9-20) mg/dL Creatinine 0.79 (0.66-1.25) mg/dL Est GFR (CKD-EPI)AfAm >90 (>60 ml/min/1.73 sqM) Est GFR (CKD-EPI)NonAf 88 (>60 ml/min/1.73 sqM) Glucose 253 H (74-99) mg/dL POC Glucose (mg/dL) (75-99) mg/dL POC Glu Substation Operator ID Calcium 7.6 L (8.4-10.2) mg/dL Magnesium 2.4 H (1.6-2.3) mg/dL Total Bilirubin 1.5 H (0.2-1.3) mg/dL AST 37 (17-59) U/L ALT 35 (21-72) U/L Alkaline Phosphatase 113 (38-126) U/L Ammonia (<30) umol/L Creatine Kinase 169 (55-170) U/L Troponin I (0.000-0.034) ng/mL NT-Pro-B Natriuret Pep pg/mL Total Protein 5.6 L (6.3-8.2) g/dL Albumin 3.0 L (3.5-5.0) g/dL 10/01/18 10/01/18 10/01/18 Range/Units 14:40 14:40 14:40 WBC (3.8-10.6) k/uL RBC (4.30-5.90) m/uL Hgb (13.0-17.5) gm/dL Hct (39.0-53.0) % MCV (80.0-100.0) fL MCH (25.0-35.0) pg MCHC (31.0-37.0) g/dL RDW (11.5-15.5) % Plt Count (150-450) k/uL Neutrophils % % Lymphocytes % % Monocytes % % Eosinophils % % Basophils % % Neutrophils # (1.3-7.7) k/uL Lymphocytes # (1.0-4.8) k/uL Monocytes # (0-1.0) k/uL Eosinophils # (0-0.7) k/uL Basophils # (0-0.2) k/uL Macrocytosis PT (9.0-12.0) sec INR (<1.2) APTT (22.0-30.0) sec Sodium (137-145) mmol/L Potassium (3.5-5.1) mmol/L Chloride (98-107) mmol/L Carbon Dioxide (22-30) mmol/L Anion Gap mmol/L BUN (9-20) mg/dL Creatinine (0.66-1.25) mg/dL Est GFR (CKD-EPI)AfAm (>60 ml/min/1.73 sqM) Est GFR (CKD-EPI)NonAf (>60 ml/min/1.73 sqM) Glucose (74-99) mg/dL POC Glucose (mg/dL) (75-99) mg/dL POC Glu Substation Operator ID Calcium (8.4-10.2) mg/dL Magnesium (1.6-2.3) mg/dL Total Bilirubin (0.2-1.3) mg/dL AST (17-59) U/L ALT (21-72) U/L Alkaline Phosphatase (38-126) U/L Ammonia <9 (<30) umol/L Creatine Kinase (55-170) U/L Troponin I 0.055 H* (0.000-0.034) ng/mL NT-Pro-B Natriuret Pep 1090 pg/mL Total Protein (6.3-8.2) g/dL Albumin (3.5-5.0) g/dL 10/01/18 Range/Units 14:48 WBC (3.8-10.6) k/uL RBC (4.30-5.90) m/uL Hgb (13.0-17.5) gm/dL Hct (39.0-53.0) % MCV (80.0-100.0) fL MCH (25.0-35.0) pg MCHC (31.0-37.0) g/dL RDW (11.5-15.5) % Plt Count (150-450) k/uL Neutrophils % % Lymphocytes % % Monocytes % % Eosinophils % % Basophils % % Neutrophils # (1.3-7.7) k/uL Lymphocytes # (1.0-4.8) k/uL Monocytes # (0-1.0) k/uL Eosinophils # (0-0.7) k/uL Basophils # (0-0.2) k/uL Macrocytosis PT (9.0-12.0) sec INR (<1.2) APTT (22.0-30.0) sec Sodium (137-145) mmol/L Potassium (3.5-5.1) mmol/L Chloride (98-107) mmol/L Carbon Dioxide (22-30) mmol/L Anion Gap mmol/L BUN (9-20) mg/dL Creatinine (0.66-1.25) mg/dL Est GFR (CKD-EPI)AfAm (>60 ml/min/1.73 sqM) Est GFR (CKD-EPI)NonAf (>60 ml/min/1.73 sqM) Glucose (74-99) mg/dL POC Glucose (mg/dL) 280 H (75-99) mg/dL POC Glu Substation Operator ID Alison Dillard Calcium (8.4-10.2) mg/dL Magnesium (1.6-2.3) mg/dL Total Bilirubin (0.2-1.3) mg/dL AST (17-59) U/L ALT (21-72) U/L Alkaline Phosphatase (38-126) U/L Ammonia (<30) umol/L Creatine Kinase (55-170) U/L Troponin I (0.000-0.034) ng/mL NT-Pro-B Natriuret Pep pg/mL Total Protein (6.3-8.2) g/dL Albumin (3.5-5.0) g/dL - EKG Data -: EKG Interpreted by [facility] EKG shows normal: sinus rhythm (Sinus rhythm a 77 appear interval 148 QRS duration 80 daily since QTC 4:30/[address] configuration artifact is present.) - Radiology Data Radiology results: report reviewed (I did review the imaging and reports evidence of chronic pulmonary markings insistent with chronic fibrosis COPD.), image reviewed Disposition Clinical Impression: Lung cancer, Dehydration, Delirium due to general medical condition, Failure to thrive syndrome, adult, Anemia Disposition: ADMITTED IP TO THIS [facility] Condition: Poor Referrals: Boaz Conner DO [Primary Care Provider] - 1-2 days
[2018-10-01 15:02] LABS: Basophils % (A) 0 %; Eosinophils # (A) 0.3 k/uL (0-0.7); Eosinophils % (A) 4 %; HCT 26.3 % (39.0-53.0); HGB 8.7 gm/dL (13.0-17.5); Lymphocytes # (A) 0.9 k/uL (1.0-4.8); Lymphocytes % (A) 12 %; MCH 35.7 pg (25.0-35.0); MCHC 33.1 g/dL (31.0-37.0); MCV 107.8 fL (80.0-100.0); Macrocytosis Moderate; Mean Platelet Volume 8.3; Monocytes # (A) 0.5 k/uL (0-1.0); Monocytes % (A) 6 %; Neutrophils # (A) 5.7 k/uL (1.3-7.7); Neutrophils % (A) 76 %; Platelet Count 353 k/uL (150-450); RBC 2.44 m/uL (4.30-5.90); RDW 15.5 % (11.5-15.5); WBC 7.5 k/uL (3.8-10.6)
[2018-10-01 15:03] LABS: Glucose,Whole Blood 280 mg/dL (75-99)
[2018-10-01 15:08] LABS: INR 1.1 (<1.2); Partial Thromboplastin Time 22.9 sec (22.0-30.0); Prothrombin Time 11.7 sec (9.0-12.0)
[2018-10-01 15:10] LABS: ALT 35 U/L (21-72); AST 37 U/L (17-59); African American GFR (CKD) >90 (>60 ml/min/1.73 sqM); Alkaline Phosphatase 113 U/L (38-126); Anion Gap 8 mmol/L; Blood Urea Nitrogen 11 mg/dL (9-20); Calcium 7.6 mg/dL (8.4-10.2); Carbon Dioxide 25 mmol/L (22-30); Chloride 101 mmol/L (98-107); Creatine Kinase 169 U/L (55-170); Glucose 253 mg/dL (74-99); Magnesium 2.4 mg/dL (1.6-2.3); Potassium 4.5 mmol/L (3.5-5.1); Sodium 134 mmol/L (137-145); Total Bilirubin 1.5 mg/dL (0.2-1.3); Total Protein 5.6 g/dL (6.3-8.2)
--- NOTE | 2018-10-01 15:15 | CT ---
EXAMINATION TYPE: CT brain wo con DATE OF EXAM: 10/01/2018 COMPARISON: 09/06/2018 INDICATION: Weakness and confusion DLP: 1188.4 mGycm, Automated exposure control for dose reduction was used. CONTRAST: None CT of the brain is performed utilizing 3 mm thick sections through the posterior fossa and 3 mm thick sections through the remaining calvarium. Study is performed within 24 hours of arrival to the hosp ital. No abnormal hyperdensity is present to suggest an acute intracranial hemorrhage. No mass lesion is evident. No acute infarcts are evident. Ventricles and sulci are appropriate for the patient age. Paranasal sinuses and mastoid air cells within the [id number] are clear. IMPRESSIONS: 1. No acute intracranial process CT brain.
--- NOTE | 2018-10-01 15:18 | XR ---
EXAMINATION TYPE: XR chest 2V DATE OF EXAM: 10/01/2018 COMPARISON: 09/26/2018, 09/06/2018 INDICATION: Altered mental status TECHNIQUE: Frontal and lateral views of the chest are obtained. FINDINGS: The heart size is normal. The pulmonary vasculature is normal. There is diffuse increased lung markings which appear chronic. Pulmonary fibrosis should be considere d.. Differential diagnosis could include other etiologies including infectious etiologies and noncar diogenic pulmonary edema. Findings are somewhat similar to the most recent comparisons. Port is present over the right chest with the tip in the proximal right atrium. IMPRESSION: 1. Diffuse increased lung markings could be related to pulmonary fibrosis. Differential diagnosis is discussed above.
[2018-10-01] MEDS ORDERED: ACETAMINOPHEN TAB 325 MG TAB PO PRN (17:24)
[2018-10-01] MEDS ORDERED: NALOXONE 0.4 MG/ML 1 ML VIAL IV PRN (17:24)
[2018-10-01] MEDS ORDERED: oxyCODONE-APAP 7.5-325MG 1 EACH TAB PO PRN (17:26)
[2018-10-01] MEDS ORDERED: risperiDONE ODT 1 MG TAB PO PRN (17:26)
[2018-10-01] MEDS ORDERED: SODIUM CHLORIDE 0.9% 1,000 ML IV SCH (17:30)
[2018-10-01] MEDS: IPRATROPIUM-ALBUTEROL 3 ML NEB INHALATION SCH (19:39)
[2018-10-01] MEDS: FERROUS SULFATE 325 MG TAB PO SCH (19:59)
[2018-10-01] MEDS: ATENOLOL 25 MG TAB PO SCH (19:59)
[2018-10-01] MEDS: CILOSTAZOL 100 MG TAB PO SCH (20:00)
[2018-10-01] MEDS: guaiFENesin 600 MG TABLET.ER PO SCH (20:00)
[2018-10-01] MEDS: AMOXIC-POT CLAV 875-125MG 1 EACH TAB PO SCH (20:00)
[2018-10-01] MEDS: MORPHINE SULFATE ER 30 MG TABLET PO SCH (20:00)
--- NOTE | 2018-10-01 22:44 | P.HPIM ---
History of Present Illness H&P Date: 10/01/18 Chief Complaint: Failure to thrive Presenting complaint: Failure to thrive History of presenting complaint: This is a patient with extensive medical history. Patient has a diagnosis of non-small cell lung cancer with metastatic disease. Did get radiation and chemotherapy. Was following out of [facility]. Patient also has underlying COPD and had been smoking recently. Patient's other chronic stable medical conditions include macrocytic anemia, diabetes mellitus type 2, osteoarthritis, or artery disease, hypothyroid, hypertension, hyperlipidemia,. Patient was just discharged from hospital yesterday. Patient also had a left ankle lateral malleolus or fracture and patient is given a cam boot walker. Yesterday care was discussed with the patient's sister and also VNA was involved with patient going home with palliative care. As patient's overall progress had been determined taking deteriorating rapidly, hospice had been suggested. It was conveyed to me that the was reluctant at the time of discharge for the same. Patient was taken home. And family was not able to manage him. Patient is barely eating. Getting more confused. At that got him back to the ER. Patient's home equipment apparently not been delivered. VNA will get involved tomorrow to make things happen. Meantime patient is lying in bed. Denies pain. Somewhat confused. Slight cough is present. Barely eating. Review of systems: Difficult to obtain patient only answers some questions. Social history: . Patient's son is a caregiver. does work at midnight. Patient does as a cane and a walker but will often refuse to use them. Has been smoking since 1956. No significant alcohol history. Family history: Shane artery disease Physical examination: VITAL SIGNS: 98.6, 86, 18, 156/86, 99% on 4 L GENERAL: BMI 23.1, laying in bed, tired appearing, awake. EYES: Pupils equal. Conjunctiva palel. HEENT: External appearance of nose and ears normal, oral cavity dry. NECK: JVD unable to assess; masses not palpable. HEART: First and second heart sounds are normal; no edema. LUNGS: Respiratory rate increased, decreased breath sounds some wheezing. ABDOMEN: Soft, nontender, liver spleen not palpable, no masses palpable. PSYCH: Patient can tell his name, smiles,l. NEUROLOGICAL: Cranial nerves grossly intact; no facial asymmetry, power and sensation grossly intact. LYMPHATICS: No lymph nodes palpable in the axilla and neck Investigations, reviewed noncontributory presentation White count 7.5, hemoglobin 8.7, potassium 4.5, BUN 11, creatinine 0.79 Albumin 3.0 troponin 0.055 EKG tracing personally reviewed by me shows some ST segment changes in the anterolateral leads Chest x-ray film personally reviewed by me shows multiple bilateral shadows Computed tomography scan of the brain will acute Assessment: -Acute on chronic failure to thrive from advanced metastatic lung disease and other multiple comorbidities. Patient was discharged home with palliative care with a view to hospice care was discussed with the family. Family is unable to handle the patient at home has patient be admitted for the same. [facility] hospice has been involved. They they will call from the ER. In working with the antoinette garcia. -Bilateral pneumonitis probably secondary to chemotherapy and radiation, as determined of loss admission -Non-small cell lung cancer with metastatic, getting radiation and chemotherapy -Macrocytic anemia likely from underlying malignancy -COPD in a current smoker -Chronic nicotine dependence patient active cigarette smoker -Diabetes mellitus type 2 -Primary osteoarthritis -Coronary artery disease with prior history of [place] -Hypothyroid -Chronic urinary incontinence -Essential hypertension -Hyperlipidemia -Peripheral artery disease with peripheral stents -Chronic pain for which patient is on MS Contin and Percocet - chronic congestive heart exacerbation from diastolic dysfunction from un derlying coronary artery disease -Moderate tricuspid regurgitation nonrheumatic -[id number] underlying cognitive impairment suspected -Left ankle lateral malleolus fracture, given a cam boot walker, allowed weightbearing as tolerated with walker Plan: Home medications were resumed. Patient is placed in observation. VNA is involved. Diet as tolerated. Prognosis poor. Patient denies any pain. Past Medical History Past Medical History: Cancer, COPD, CVA/TIA, Diabetes Mellitus, Hearing Disorder / Deafness, Hyperlipidemia, Hypertension, Myocardial Infarction ([place]), Osteoarthritis (OA), Pneumonia, Vascular Disorder Additional Past Medical History / Comment(s): 2018 R lung cancer with liver mets treated with radiation and chemo therapy currently, IDDM type II, neuropathy bilateral hands/feet, slight dementia, UTI with sepsis, PVD, possible TIA with caratid surgery, spouse states pt has had 2 MIs in the past, spinal stenosis, lumbar disc disease, 2 lumbar herniated discs, hypothyroid, [place]-wears aide in R ear and 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 Last Myocardial Infarction Date:: unknown History of Any Multi-Drug Resistant Organisms: None Reported Past Surgical History: Coronary Bypass/CABG, Heart Catheterization, Heart Catheterization With Stent, Orthopedic Surgery Additional Past Surgical History / Comment(s): 2011 PTCA, 1999 CABG 3 vessels, 2017 abdominal aortic aneurysm repair, bilateral legs stented, L mastoid surgery, L knee surgery to stablilize patella, bilateral wrist ganglion cysts removed, R caratid endartectomy, bilateral cataract removals. Last stent with Dr Espinoza in 2013 Past Anesthesia/Blood Transfusion Reactions: No Reported Reaction Date of Last Stent Placement:: 2013 Past Psychological History: Anxiety, Depression Additional Psychological History / Comment(s): Pt resides with his spouse and their son. The son is pt's caregiver, his spouse works midnights. Pt has a cane and walker but refused to use them. He no longer drives, spouse takes pt to appts. Smoking Status: Current every day smoker Past Alcohol Use History: None Reported Additional Past Alcohol Use History / Comment(s): Pt started smoking in 1956. He is a ppd smoker. Past Drug Use History: None Reported - Past Family History Mother Family Medical History: Coronary Artery Disease (CAD) Father Family Medical History: Diabetes Mellitus Additional Family Medical History / Comment(s): heart disease Medications and Allergies Home Medications Medication Instructions Recorded Confirmed Type Atenolol [Tenormin] 25 mg PO HS 05/12/15 10/01/18 History Cilostazol [Pletal] 50 mg PO BID 05/12/15 10/01/18 History Clopidogrel Bisulfate [Plavix] 75 mg PO DAILY 05/12/15 10/01/18 History Lisinopril [Zestril] 10 mg PO DAILY 05/12/15 10/01/18 History Aspirin EC [Ecotrin Low Dose] 81 mg PO DAILY 06/22/17 10/01/18 History Insulin Glargine,Hum.rec.anlog See Protocol SQ HS 06/22/17 10/01/18 History [Basaglar Kwikpen U-100] Levothyroxine Sodium [Synthroid] 50 mcg PO Q72H 06/22/17 10/01/18 History oxyCODONE-APAP 7.5-325MG [Percocet 1 tab PO QID PRN 06/22/17 10/01/18 History 7.5-325 mg] Ferrous Sulfate [Iron (65 MG 325 mg PO BID 05/19/18 10/01/18 History Elemental)] Insulin Lispro [humaLOG Kwikpen] See Protocol SQ TID-W/MEALS 05/19/18 10/01/18 History Folic Acid 1 mg PO DAILY 09/05/18 10/01/18 History Morphine Sulfate ER [Ms Contin] 30 mg PO Q12H 09/06/18 10/01/18 History guaiFENesin [Mucinex] 1,200 mg PO Q12HR #30 tablet.er 09/30/18 10/01/18 Rx risperiDONE [risperiDONE ODT] 0.25 mg PO TID PRN #21 tab.rapdis 09/30/18 10/01/18 Rx Amoxic-Pot Clav 875-125Mg 1 tab PO Q12HR 10/01/18 10/01/18 History [Augmentin 875-125] Ipratropium-Albuterol Nebulize 3 ml INHALATION RT-TID 10/01/18 10/01/18 History [Duoneb 0.5 mg-3 mg/3 ml Soln] Allergies Allergy/AdvReac Type Severity Reaction Status Date / Time methylprednisolone AdvReac Confusion Verified 10/01/18 14:04 [From Solu-Medrol] quetiapine [From Seroquel] AdvReac body pain Verified 10/01/18 14:04 STATINS AdvReac MUSCLE Uncoded 10/01/18 14:04 WEAKNESS Physical Exam Vitals: Vital Signs Temp Pulse Pulse Resp BP BP Pulse Ox 10/01/18 20:08 98.1 F 10/01/18 20:05 83 16 139/66 96 10/01/18 18:13 98.6 F 86 18 156/86 99 10/01/18 17:00 85 18 144/55 98 10/01/18 15:22 71 18 135/67 99 10/01/18 14:45 98 F 74 18 145/67 98 10/01/18 14:30 98 F 74 18 145/67 98 10/01/18 14:15 98 F 74 18 145/67 98 10/01/18 14:00 98 F 74 18 145/67 98 10/01/18 13:35 98 F 74 18 145/67 98 Intake and Output 10/01/18 10/01/18 10/01/18 06:59 14:59 22:59 Intake Total 590 Balance 590 Intake: Oral 590 Other: # Voids 2 # Bowel Movements 1 Weight 77.111 kg Results CBC & Chem 7: 10/01/18 14:40 10/01/18 14:40 Labs: Abnormal Lab Results - Last 24 Hours (Table) 10/01/18 10/01/18 10/01/18 Range/Units 14:40 14:40 14:40 RBC 2.44 L (4.30-5.90) m/uL Hgb 8.7 L (13.0-17.5) gm/dL Hct 26.3 L (39.0-53.0) % MCV 107.8 H (80.0-100.0) fL MCH 35.7 H (25.0-35.0) pg Lymphocytes # 0.9 L (1.0-4.8) k/uL Sodium 134 L (137-145) mmol/L Glucose 253 H (74-99) mg/dL POC Glucose (mg/dL) (75-99) mg/dL Calcium 7.6 L (8.4-10.2) mg/dL Magnesium 2.4 H (1.6-2.3) mg/dL Total Bilirubin 1.5 H (0.2-1.3) mg/dL Troponin I 0.055 H* (0.000-0.034) ng/mL Total Protein 5.6 L (6.3-8.2) g/dL Albumin 3.0 L (3.5-5.0) g/dL 10/01/18 Range/Units 14:48 RBC (4.30-5.90) m/uL Hgb (13.0-17.5) gm/dL Hct (39.0-53.0) % MCV (80.0-100.0) fL MCH (25.0-35.0) pg Lymphocytes # (1.0-4.8) k/uL Sodium (137-145) mmol/L Glucose (74-99) mg/dL POC Glucose (mg/dL) 280 H (75-99) mg/dL Calcium (8.4-10.2) mg/dL Magnesium (1.6-2.3) mg/dL Total Bilirubin (0.2-1.3) mg/dL Troponin I (0.000-0.034) ng/mL Total Protein (6.3-8.2) g/dL Albumin (3.5-5.0) g/dL Thrombosis Risk Factor Assmnt - Choose All That Apply Each Factor Represents 1 point: Acute [place] Each Risk Factor Represents 3 Points: Age 75 years or older Other congenital or acquired thrombophilia - If yes, enter type in comment: No Thrombosis Risk Factor Assessment Total Risk Factor Score: 4 Thrombosis Risk Factor Assessment Level: Moderate Risk
[2018-10-02] MEDS: LEVOTHYROXINE 50 MCG TAB PO SCH (06:21)
[2018-10-02] MEDS: MORPHINE SULFATE ER 30 MG TABLET PO SCH ×2 (06:21→17:44)
[2018-10-02] MEDS: FOLIC ACID 1 MG TAB PO SCH (08:28)
[2018-10-02] MEDS: CLOPIDOGREL 75 MG TAB PO SCH (08:28)
[2018-10-02] MEDS: AMOXIC-POT CLAV 875-125MG 1 EACH TAB PO SCH ×2 (08:28→20:23)
[2018-10-02] MEDS: ASPIRIN 81 MG PO SCH (08:28)
[2018-10-02] MEDS: CILOSTAZOL 100 MG TAB PO SCH ×2 (08:29→20:23)
[2018-10-02] MEDS: LISINOPRIL 10 MG TAB PO SCH (08:29)
[2018-10-02] MEDS: FERROUS SULFATE 325 MG TAB PO SCH ×2 (08:29→20:23)
[2018-10-02] MEDS: guaiFENesin 600 MG TABLET.ER PO SCH ×2 (08:29→20:23)
[2018-10-02] MEDS: IPRATROPIUM-ALBUTEROL 3 ML NEB INHALATION SCH ×3 (08:46→19:45)
[2018-10-02 11:20] VITALS: BMI 23.0
[2018-10-02] MEDS ORDERED: risperiDONE ODT 1 MG TAB PO PRN (12:59)
--- NOTE | 2018-10-02 15:55 | P.PN ---
Progress Note - Text Progress Note Date: 10/02/18 Presenting complaint: Failure to thrive Interval history: This is a patient with extensive medical history. Patient has a diagnosis of non-small cell lung cancer with metastatic disease. Did get radiation and chemotherapy. Was following out of [facility]. Patient also has underlying COPD and had been smoking recently. Patient's other chronic stable medical conditions include macrocytic anemia, diabetes mellitus type 2, osteoarthritis, or artery disease, hypothyroid, hypertension, hyperlipidemia,. Patient was just discharged from hospital yesterday. Patient also had a left ankle lateral malleolus or fracture and patient is given a cam boot walker. Yesterday care was discussed with the patient's sister and also VNA was involved with patient going home with palliative care. As patient's overall progress had been determined taking deteriorating rapidly, hospice had been suggested. It was conveyed to me that the was reluctant at the time of discharge for the same. Patient was taken home. And family was not able to manage him. Patient is barely eating. Getting more confused. At that got him back to the ER. Patient's home equipment apparently not been delivered. . Meantime patient is lying in bed. Denies pain. Somewhat confused. Slight cough is present. Barely eating. Today-laying in bed drowsy. But arousable. Eating minimal amounts. No family present. Review of systems: Difficult to obtain patient only answers some questions. Current medications are reviewed that include: MS Sushma Contin, Risperdal Physical examination: VITAL SIGNS: 98.1, 73, 17, 161/70, then 99% on 4 L GENERAL: Laying in bed, tired, arousable. EYES: Pupils equal. Conjunctiva pale. HEENT: External appearance of nose and ears normal, oral cavity dry. NECK: JVD unable to assess; masses not palpable. HEART: First and second heart sounds are normal; no edema. LUNGS: Respiratory rate increased, decreased breath sounds some wheezing. ABDOMEN: Soft, nontender, liver spleen not palpable, no masses palpable. PSYCH: Unable to assess NEUROLOGICAL: Cranial nerves grossly intact; no facial asymmetry, power and sensation grossly intact. Investigations, reviewed noncontributory presentation No labs from today EKG tracing personally reviewed by me shows some ST segment changes in the anterolateral leads Chest x-ray film personally reviewed by me shows multiple bilateral shadows Computed tomography scan of the brain will acute Assessment: -Acute on chronic failure to thrive from advanced metastatic lung disease and other multiple comorbidities. Patient was discharged home with palliative care with a view to hospice care was discussed with the family. Family is unable to handle the patient at home has patient be admitted for the same. [facility] hospice has been involved. They they will call from the ER. In working with the family. -Bilateral pneumonitis probably secondary to chemotherapy and radiation, as determined of loss admission -Non-small cell lung cancer with metastatic, getting radiation and chemotherapy -Macrocytic anemia likely from underlying malignancy -COPD in a current smoker -Chronic nicotine dependence patient active cigarette smoker -Diabetes mellitus type 2 -Primary osteoarthritis -Coronary artery disease with prior history of [place] -Hypothyroid -Chronic urinary incontinence -Essential hypertension -Hyperlipidemia -Peripheral artery disease with peripheral stents -Chronic pain for which patient is on MS Contin and Percocet - chronic congestive heart exacerbation from diastolic dysfunction from underlying coronary artery disease -Moderate tricuspid regurgitation nonrheumatic -[id number] underlying cognitive impairment suspected -Left ankle lateral malleolus fracture, given a cam boot walker, allowed weightbearing as tolerated with walker Plan: Continue current medication treatment plan. Oral intake as tolerated. Spoke to the nurse to get in touch with [facility]NA to arrange for things at home. Prognosis poor
[2018-10-02] MEDS: ATENOLOL 25 MG TAB PO SCH (20:23)
[2018-10-03] MEDS: MORPHINE SULFATE ER 30 MG TABLET PO SCH ×2 (05:01→17:53)
[2018-10-03 07:13] LABS: Glucose,Whole Blood 254 mg/dL (75-99)
[2018-10-03] MEDS: IPRATROPIUM-ALBUTEROL 3 ML NEB INHALATION SCH ×3 (07:42→19:50)
[2018-10-03] MEDS: ASPIRIN 81 MG PO SCH (10:07)
[2018-10-03] MEDS: AMOXIC-POT CLAV 875-125MG 1 EACH TAB PO SCH ×2 (10:07→20:53)
[2018-10-03] MEDS: FERROUS SULFATE 325 MG TAB PO SCH ×2 (10:07→20:54)
[2018-10-03] MEDS: CILOSTAZOL 100 MG TAB PO SCH ×2 (10:07→20:53)
[2018-10-03] MEDS: CLOPIDOGREL 75 MG TAB PO SCH (10:07)
[2018-10-03] MEDS: FOLIC ACID 1 MG TAB PO SCH (10:08)
[2018-10-03] MEDS: guaiFENesin 600 MG TABLET.ER PO SCH ×2 (10:08→20:54)
[2018-10-03] MEDS: LISINOPRIL 10 MG TAB PO SCH (10:08)
[2018-10-03 11:31] LABS: Glucose,Whole Blood 284 mg/dL (75-99)
--- NOTE | 2018-10-03 17:49 | P.PN ---
Progress Note - Text Progress Note Date: 10/03/18 Presenting complaint: Tired Interval history: This is a patient with extensive medical history. Patient has a diagnosis of non-small cell lung cancer with metastatic disease. Did get radiation and chemotherapy. Was following out of [facility]. Patient also has underlying COPD and had been smoking recently. Patient's other chronic stable medical conditions include macrocytic anemia, diabetes mellitus type 2, osteoarthritis, or artery disease, hypothyroid, hypertension, hyperlipidemia,. Patient was just discharged from hospital yesterday. Patient also had a left ankle lateral malleolus or fracture and patient is given a cam boot walker. Yesterday care was discussed with the patient's sister and also VNA was involved with patient going home with palliative care. As patient's overall progress had been determined taking deteriorating rapidly, hospice had been suggested. It was conveyed to me that the was reluctant at the time of discharge for the same. Patient was taken home. And family was not able to manage him. Patient is barely eating. Getting more confused. At that got him back to the ER. Patient's home equipment apparently not been delivered. . Today-bit more awake today. Pleasant. Tired.. Had about 25% breakfast. Review of systems: Difficult to obtain patient only answers some questions. Current medications are reviewed that include: DuoNeb, MS Contin, Risperdal, Augmentin Physical examination: VITAL SIGNS: 98.1, 73, 17, 161/70, 99% on 4 L GENERAL: Propped up in bed, awake tired. EYES: Pupils equal. Conjunctiva pale. HEENT: External appearance of nose and ears normal, oral cavity dry. NECK: JVD unable to assess; masses not palpable. HEART: First and second heart sounds are normal; no edema. LUNGS: Respiratory rate increased, decreased breath sounds some wheezing. O ccasional crackles ABDOMEN: Soft, nontender, liver spleen not palpable, no masses palpable. PSYCH: Does answer some questions NEUROLOGICAL: Cranial nerves grossly intact; no facial asymmetry, power and sensation grossly intact. Investigations, reviewed noncontributory presentation [id number], 254, 284 EKG tracing personally reviewed by me shows some ST segment changes in the anter olateral leads Chest x-ray film personally reviewed by me shows multiple bilateral shadows Computed tomography scan of the brain will acute Assessment: -Metastatic lung disease -Bilateral pneumonitis probably secondary to chemotherapy and radiation, as determined of loss admission -Non-small cell lung cancer with metastatic, getting radiation and chemotherapy -Macrocytic anemia likely from underlying malignancy -COPD in a current smoker -Chronic nicotine dependence patient active cigarette smoker -Diabetes mellitus type 2 -Primary osteoarthritis -Coronary artery disease with prior history of [place] -Hypothyroid -Chronic urinary incontinence -Essential hypertension -Hyperlipidemia -Peripheral artery disease with peripheral stents -Chronic pain for which patient is on MS Contin and Percocet - chronic congestive heart exacerbation from diastolic dysfunction from underlying coronary artery disease -Moderate tricuspid regurgitation nonrheumatic -Hhed-gh-baljsevt underlying cognitive impairment suspected -Left ankle lateral malleolus fracture, given a cam boot walker, allowed weightbearing as tolerated with walker Plan: with patient's and Farndy the social insurance specialist. We had a meeting. Patient's does not have support system at home to take to the patient. She works midnights. Also there are some financial constraints. Several options were discussed discussed. We will see if patient qualifies for inpatient rehab. Also she is looking at hospice house. licensing worker will coordinate the same. The does understand patient's poor prognosis. Total time spent today was about 40 minutes with over 25 minutes in discussion
[2018-10-03 20:27] LABS: Glucose,Whole Blood 258 mg/dL (75-99)
[2018-10-03] MEDS: ATENOLOL 25 MG TAB PO SCH (20:53)
[2018-10-04] MEDS: MORPHINE SULFATE ER 30 MG TABLET PO SCH ×2 (05:50→17:58)
[2018-10-04 07:06] LABS: Glucose,Whole Blood 213 mg/dL (75-99)
[2018-10-04] MEDS: guaiFENesin 600 MG TABLET.ER PO SCH ×2 (07:46→21:05)
[2018-10-04] MEDS: CLOPIDOGREL 75 MG TAB PO SCH (07:47)
[2018-10-04] MEDS: CILOSTAZOL 100 MG TAB PO SCH ×2 (07:47→21:05)
[2018-10-04] MEDS: FERROUS SULFATE 325 MG TAB PO SCH ×2 (07:47→21:05)
[2018-10-04] MEDS: FOLIC ACID 1 MG TAB PO SCH (07:47)
[2018-10-04] MEDS: ASPIRIN 81 MG PO SCH (07:47)
[2018-10-04] MEDS: AMOXIC-POT CLAV 875-125MG 1 EACH TAB PO SCH ×2 (07:47→21:05)
[2018-10-04] MEDS: LISINOPRIL 10 MG TAB PO SCH (07:48)
[2018-10-04] MEDS: IPRATROPIUM-ALBUTEROL 3 ML NEB INHALATION SCH ×3 (08:07→19:08)
[2018-10-04 11:01] LABS: Glucose,Whole Blood 255 mg/dL (75-99)
[2018-10-04 17:30] LABS: Glucose,Whole Blood 235 mg/dL (75-99)
[2018-10-04 20:59] LABS: Glucose,Whole Blood 231 mg/dL (75-99)
[2018-10-04] MEDS: ATENOLOL 25 MG TAB PO SCH (21:05)
[2018-10-04 22:14] VITALS: RESP 18
--- NOTE | 2018-10-04 22:37 | P.PN ---
Progress Note - Text Progress Note Date: 10/04/18 Presenting complaint: Tired Interval history: This is a patient with extensive medical history. Patient has a diagnosis of non-small cell lung cancer with metastatic disease. Did get radiation and chemotherapy. Was following out of [facility]. Patient also has underlying COPD and had been smoking recently. Patient's other chronic stable medical conditions include macrocytic anemia, diabetes mellitus type 2, osteoarthritis, or artery disease, hypothyroid, hypertension, hyperlipidemia,. Patient was just discharged from hospital yesterday. Patient also had a left ankle lateral malleolus or fracture and patient is given a cam boot walker. Yesterday care was discussed with the patient's sister and also VNA was involved with patient going home with palliative care. As patient's overall progress had been determined taking deteriorating rapidly, hospice had been suggested. It was conveyed to me that the was reluctant at the time of discharge for the same. Patient was taken home. And family was not able to manage him. Patient is barely eating. Getting more confused. At that got him back to the ER. Patient's home equipment apparently not been delivered. . Today-oral intake limited. Sitting up in the bed. Does recognize me. Not in pain. Some delirium.. Review of systems: Difficult to obtain patient only answers some questions. Current medications are reviewed that include: DuoNeb, MS Contin, Risperdal, Augmentin Physical examination: VITAL SIGNS: 97.7, 80, 20, 149/70, 100% on 3 L GENERAL: Propped up in bed, awake tired. EYES: Pupils equal. Conjunctiva pale. HEENT: External appearance of nose and ears normal, oral cavity dry. NECK: JVD unable to assess; masses not palpable. HEART: First and second heart sounds are normal; no edema. LUNGS: Respiratory rate increased, decreased breath sounds some wheezing. Occasional crackles ABDOMEN: Soft, nontender, liver spleen not palpable, no masses palpable. PSYCH: Does answer some questions , delirious NEUROLOGICAL: Cranial nerves grossly intact; no facial asymmetry, power and sensation grossly intact. Investigations, reviewed noncontributory presentation Accu-Cheks 213, 255, 235 EKG tracing personally reviewed by me shows some ST segment changes in the anterolateral leads Chest x-ray film personally reviewed by me shows multiple bilateral shadows Computed tomography scan of the brain will acute Assessment: -Metastatic lung disease -Bilateral pneumonitis probably secondary to chemotherapy and radiation, as determined of loss admission -Non-small cell lung cancer with metastatic, getting radiation and chemotherapy -Macrocytic anemia likely from underlying malignancy -COPD in a current smoker -Chronic nicotine dependence patient active cigarette smoker -Diabetes mellitus type 2 -Primary osteoarthritis -Coronary artery disease with prior history of [place] -Hypothyroid -Chronic urinary incontinence -Essential hypertension -Hyperlipidemia -Peripheral artery disease with peripheral stents -Chronic pain for which patient is on MS Contin and Percocet - chronic congestive heart exacerbation from diastolic dysfunction from underlying coronary artery disease -Moderate tricuspid regurgitation nonrheumatic -Svuk-jh-kfrmapes underlying cognitive impairment suspected -Left ankle lateral malleolus fracture, given a cam boot walker, allowed weightbearing as tolerated with walker Plan: Spoke to the gearcase assemblermanager pacu worker. They're trying to find a place for the patient. Continue current medication treatment plan. Prognosis remains guarded.
[2018-10-05] MEDS: MORPHINE SULFATE ER 30 MG TABLET PO SCH (06:08)
[2018-10-05] MEDS: LEVOTHYROXINE 50 MCG TAB PO SCH (06:08)
[2018-10-05 07:01] LABS: Glucose,Whole Blood 223 mg/dL (75-99)
[2018-10-05] MEDS: AMOXIC-POT CLAV 875-125MG 1 EACH TAB PO SCH (10:23)
[2018-10-05] MEDS: ASPIRIN 81 MG PO SCH (10:24)
[2018-10-05] MEDS: CLOPIDOGREL 75 MG TAB PO SCH (10:24)
[2018-10-05] MEDS: CILOSTAZOL 100 MG TAB PO SCH (10:24)
[2018-10-05] MEDS: LISINOPRIL 10 MG TAB PO SCH (10:25)
[2018-10-05] MEDS: guaiFENesin 600 MG TABLET.ER PO SCH (10:25)
[2018-10-05] MEDS: FOLIC ACID 1 MG TAB PO SCH (10:25)
[2018-10-05] MEDS: FERROUS SULFATE 325 MG TAB PO SCH (10:25)
[2018-10-05 11:38] LABS: Glucose,Whole Blood 221 mg/dL (75-99)
[2018-10-05] MEDS: IPRATROPIUM-ALBUTEROL 3 ML NEB INHALATION SCH ×2 (11:40→11:41)
[2018-10-05 12:19] VITALS: BP 126/68; PULSE 63; TEMP 97.9
--- NOTE | 2018-10-05 13:33 | P.DS ---
Providers Date of admission: 10/01/18 17:24 Expected date of discharge: 10/05/18 Attending physician: Niko Anguiano Primary care physician: [facility] Course: Hospital course: This is a patient with extensive medical history. Patient has a diagnosis of non-small cell lung cancer with metastatic disease. Did get radiation and chemotherapy. Was following out of [facility]. Patient also has underlying COPD and had been smoking recently. Patient's other chronic stable medical conditions include macrocytic anemia, diabetes mellitus type 2, osteoarthritis, or artery disease, hypothyroid, hypertension, hyperlipidemia,. Patient was just discharged from hospital yesterday. Patient also had a left ankle lateral malleolus or fracture and patient is given a cam boot walker. Yesterday care was discussed with the patient's sister and also VNA was involved with patient going home with palliative care. As patient's overall progress had been determined taking deteriorating rapidly, hospice had been suggested. It was conveyed to me that the was reluctant at the time of discharge for the same. Patient was taken home. And family was not able to manage him. Patient is barely eating. Getting more confused. At that got him back to the ER. . Patient continues to be intermittently confused. Occasionally hallucinating. Oral intake is dwindled. Spoke to the sister and today. No new questions. Patient's completed his course of antibiotic. Discussed with planner scheduler. Discussion and discharge planning more than 35 minutes Physical examination: VITAL SIGNS: 97.9, 63, 18, 126/68, 94% on 2 L GENERAL: Sitting comfortable in bed, smiling. EYES: Pupils equal. Conjunctiva pale. HEENT: External appearance of nose and ears normal, oral cavity dry. NECK: JVD unable to assess; masses not palpable. HEART: First and second heart sounds are normal; no edema. LUNGS: Respiratory rate increased, decreased breath sounds some wheezing. ABDOMEN: Soft, nontender, liver spleen not palpable, no masses palpable. PSYCH: Does answer some questions , delirious NEUROLOGICAL: Cranial nerves grossly intact; no facial asymmetry, power and sensation grossly intact. Investigations, reviewed noncontributory presentation [id number], 221 EKG tracing personally reviewed by me shows some ST segment changes in the anterolateral leads Chest x-ray film personally reviewed by me shows multiple bilateral shadows Computed tomography scan of the brain will acute Assessment: -Metastatic lung disease -Bilateral pneumonitis probably secondary to chemotherapy and radiation, as determined of loss admission -Non-small cell lung cancer with metastatic, getting radiation and chemotherapy -Macrocytic anemia likely from underlying malignancy -COPD in a current smoker -Chronic nicotine dependence patient active cigarette smoker -Diabetes mellitus type 2 -Primary osteoarthritis -Coronary artery disease with prior history of [place] -Hypothyroid -Chronic urinary incontinence -Essential hypertension -Hyperlipidemia -Peripheral artery disease with peripheral stents -Chronic pain for which patient is on MS Contin and Percocet - chronic congestive heart exacerbation from diastolic dysfunction from underlying coronary artery disease -Moderate tricuspid regurgitation nonrheumatic -Pslj-ow-ykkgyzsv underlying cognitive impairment suspected -Left ankle lateral malleolus fracture, given a cam boot walker, allowed weightbearing as tolerated with walker CODE STATUS: DO NOT RESUSCITATE Disposition: [facility]. Patient Condition at Discharge: Poor Plan - Discharge Summary Discharge Rx Participant: No New Discharge Prescriptions: New Insulin Detemir (Levemir) [Levemir] 10 unit SQ HS #1 vial Continue Cilostazol [Pletal] 50 mg PO BID Clopidogrel Bisulfate [Plavix] 75 mg PO DAILY Lisinopril [Zestril] 10 mg PO DAILY Atenolol [Tenormin] 25 mg PO HS Aspirin EC [Ecotrin Low Dose] 81 mg PO DAILY Levothyroxine Sodium [Synthroid] 50 mcg PO Q72H Insulin Lispro [humaLOG Kwikpen] See Protocol SQ TID-W/MEALS Ferrous Sulfate [Iron (65 MG Elemental)] 325 mg PO BID Folic Acid 1 mg PO DAILY guaiFENesin [Mucinex] 1,200 mg PO Q12HR #30 tablet.er Ipratropium-Albuterol Nebulize [Duoneb 0.5 mg-3 mg/3 ml Soln] 3 ml INHALATION RT-TID Morphine Sulfate ER [Ms Contin] 30 mg PO Q12H #6 tablet oxyCODONE-APAP 7.5-325MG [Percocet 7.5-325 mg] 1 tab PO QID PRN #12 tab PRN Reason: Breakthrough Pain risperiDONE [risperiDONE ODT] 0.25 mg PO TID PRN #9 tab.rapdis PRN Reason: Agitation Discontinued Insulin Glargine,Hum.rec.anlog [Basaglar Kwikpen U-100] See Protocol SQ HS Amoxic-Pot Clav 875-125Mg [Augmentin 875-125] 1 tab PO Q12HR Discharge Medication List Atenolol [Tenormin] 25 mg PO HS 05/12/15 [History] Cilostazol [Pletal] 50 mg PO BID 05/12/15 [History] Clopidogrel Bisulfate [Plavix] 75 mg PO DAILY 05/12/15 [History] Lisinopril [Zestril] 10 mg PO DAILY 05/12/15 [History] Aspirin EC [Ecotrin Low Dose] 81 mg PO DAILY 06/22/17 [History] Levothyroxine Sodium [Synthroid] 50 mcg PO Q72H 06/22/17 [History] Ferrous Sulfate [Iron (65 MG Elemental)] 325 mg PO BID 05/19/18 [History] Insulin Lispro [humaLOG Kwikpen] See Protocol SQ TID-W/MEALS 05/19/18 [History] Folic Acid 1 mg PO DAILY 09/05/18 [History] guaiFENesin [Mucinex] 1,200 mg PO Q12HR #30 tablet.er 09/30/18 [Rx] Ipratropium-Albuterol Nebulize [Duoneb 0.5 mg-3 mg/3 ml Soln] 3 ml INHALATION RT-TID 10/01/18 [History] Insulin Detemir (Levemir) [Levemir] 10 unit SQ HS #1 vial 10/05/18 [Rx] Morphine Sulfate ER [Ms Contin] 30 mg PO Q12H #6 tablet 10/05/18 [Rx] oxyCODONE-APAP 7.5-325MG [Percocet 7.5-325 mg] 1 tab PO QID PRN #12 tab 10/05/18 [Rx] risperiDONE [risperiDONE ODT] 0.25 mg PO TID PRN #9 tab.rapdis 10/05/18 [Rx] Follow up Appointment(s)/Referral(s): Boaz Conner DO [Primary Care Provider] - 1-2 days
== END 2018-10-05 14:55 ==
LOC: EC 13:31 → 3NMEDONC 17:24
PROVIDERS: ADMIT Hospitalist; ATTEND Hospitalist
DX: R62.7 Adult failure to thrive (principal); C34.91 Malignant neoplasm of unspecified part of right bronchus or lung; C78.7 Secondary malignant neoplasm of liver and intrahepatic bile duct; E03.9 Hypothyroidism, unspecified; E11.51 Type 2 diabetes mellitus with diabetic peripheral angiopathy without gangrene; E78.5 Hyperlipidemia, unspecified; E86.0 Dehydration; F17.210 Nicotine dependence, cigarettes, uncomplicated; Z66 Do not resuscitate; Z51.5 Encounter for palliative care; F32.9 Major depressive disorder, single episode, unspecified; F41.9 Anxiety disorder, unspecified; H91.90 Unspecified hearing loss, unspecified ear; I10 Essential (primary) hypertension; I25.10 Atherosclerotic heart disease of native coronary artery without angina pectoris; J44.0 Chronic obstructive pulmonary disease with (acute) lower respiratory infection; J18.9 Pneumonia, unspecified organism; S82.62XA Displaced fracture of lateral malleolus of left fibula, initial encounter for closed fracture; I36.1 Nonrheumatic tricuspid (valve) insufficiency; R32 Unspecified urinary incontinence; D50.9 Iron deficiency anemia, unspecified; I25.2 Old myocardial infarction; M19.91 Primary osteoarthritis, unspecified site; Z95.820 Peripheral vascular angioplasty status with implants and grafts; Z79.02 Long term (current) use of antithrombotics/antiplatelets; Z79.82 Long term (current) use of aspirin; Z79.890 Hormone replacement therapy; Z79.4 Long term (current) use of insulin; Z79.899 Other long term (current) drug therapy; Z88.8 Allergy status to other drugs, medicaments and biological substances
CPT/HCPCS: 96374; 96361; 99285; 36415; 94640 ×6; 94760; 93005; 97162; 97166; 83880; 80053; 82140; 82550; 83735; 84484; 85025; 85610; 85730; 71046; 70450; G0378 ×5; J1642